=== PATIENT | female | born 1940 | race Caucasian/White ===

== ENCOUNTER → 2017-03-05 | Outpatient (CLI) | payer MEDICARE, SELFPAY | PROVIDERS: Visit Provider Nurse Practitioner Family | DX: D64.9 Anemia, unspecified (principal); E87.1 Hypo-osmolality and hyponatremia | CPT/HCPCS: 36415; 80053; 85025 ==

== ENCOUNTER → 2017-05-31 16:26 | Outpatient (CLI) | payer MEDICARE, SELFPAY ==
[2017-05-31 17:08] LABS: Basophils % 0.5 % (0.1-2.0); Eosinophils # 0.1 K/mm3 (0.0-0.4); Eosinophils % 1.7 % (0.1-12.0); Hematocrit 37.6 % (37.0-47.0); Hemoglobin 12.1 g/dL (12.2-16.2); Lymphocytes # 1.5 K/mm3 (0.7-4.5); Lymphocytes % 27.4 K/mm3 (10-50); Mean Corpuscular HGB Conc 32.3 g/dL (31.8-35.4); Mean Corpuscular Hemoglobin 29.7 pg (27.0-31.2); Mean Corpuscular Volume 92.1 fl (81-99); Mean Platelet Volume 7.1 fl (7.4-10.4); Monocytes # 0.5 K/mm3 (0.1-1.0); Monocytes % 9.7 % (1.7-9.3); Neutrophils # 3.2 K/mm3 (1.8-7.8); Neutrophils % 60.8 % (37.0-80.0); Platelet Count 353 K/mm3 (142-424); Red Blood Count 4.08 M/mm3 (4.20-5.40); White Blood Count 5.3 K/mm3 (4.8-10.8)
[2017-05-31 17:15] LABS: Alanine Aminotransferase 23 U/L (12-78); Albumin Level 3.8 gm/dL (3.4-5.0); Albumin/Globulin Ratio 1.1 (1.1-1.8); Alkaline Phosphatase 63 U/L (46-116); Anion Gap 9.3 mEq/L (5-15); Aspartate Amino Transferase 29 U/L (15-37); Bilirubin,Total 0.3 mg/dL (0.2-1.0); Blood Urea Nitrogen 16 mg/dL (7-18); Carbon Dioxide 29 mmol/L (21.0-32.0); Chloride 94 mmol/L (98-107); Creatinine,Serum 0.62 mg/dL (0.55-1.02); Estimated Glomerular Filt Rate 94 ml/min (>60); Ferritin 22 ng/mL (8-388); GFR (African American) 114 ML/MIN (>60); Globulin 3.4 gm/dl (1.3-3.2); Glucose 91 mg/dL (74-106); Potassium 4.3 mmoL/L (3.5-5.1); Sodium 128 mmol/L (136-145); Thyroid Stimulating Hormone 1.26 uIU/ml (0.358-3.740); Total Protein,Serum 7.2 gm/dL (6.4-8.2)
[2017-06-02 05:20] LABS: Iron 77 ug/dL (27-139); Iron Saturation 23 % (15-55); UIBC 264 ug/dL (118-369)
[2017-06-02 06:15] LABS: Folate >20.0 ng/mL (>3.0); Vitamin B12 1054 pg/mL (232-1245)
== END ==
PROVIDERS: PCP Internal Medicine Adolescent Medicine; Visit Provider Nurse Practitioner Family
DX: D64.9 Anemia, unspecified (principal); E87.1 Hypo-osmolality and hyponatremia
CPT/HCPCS: 36415; 80053; 82607; 82728; 82746; 83550; 84443; 85025

== ENCOUNTER → 2017-08-26 08:48 | Outpatient (CLI) | payer MEDICARE, SELFPAY ==
--- NOTE | 2017-08-26 08:53 | MM_ITS ---
MM Dig screening mamm BI w/CAD CAD Screening ORDERING PHYSICIAN : Nadeen Matias PATIENT AGE: 76 years GENDER: Female COMPARISON: Previous mammograms: June 2014, 2015July 2016 INDICATION: 76-year-old. Estrogen cream. Previous cyst aspiration right breast. Family history. Sister with breast cancer age 85. TECHNIQUE: Standard CC and MLO images were obtained. R2 CAD reviewed. FINDINGS: Mild to moderate residual from bladder elements No new worrisome dominant mass nor suspicious calcifications either breast. RIGHT BREAST: Stable focal Density upper-outer quadrant right breast would note change since studies dating to at least 2015 and 2014. No significant change here at routine follow-up adequate. LEFT BREAST:No interval change. Areas of density on cc view dissipates on the MLO view and are stable since prior studies from 2014 as well IMPRESSION: Stable bilateral mammogram. Follow-up in one year BI-RADS Category: 2 Benign Finding(s) RECOMMENDED FOLLOW-UP: 1YR - 1 YEAR FOLLOW-UP (A letter has been sent to the patient regarding results of the study.)
== END ==
PROVIDERS: Family Provider Internal Medicine Adolescent Medicine; PCP Internal Medicine Adolescent Medicine; Visit Provider Nurse Practitioner Family
DX: Z12.31 Encounter for screening mammogram for malignant neoplasm of breast (principal)
CPT/HCPCS: 77067

== ENCOUNTER 2017-09-07 10:04 | Outpatient (CLI) | payer MEDICARE, SELFPAY ==
[2017-09-07 10:06] VITALS: BMI 27.4
[2017-09-07 10:29] LABS: Creatinine Clearance Estimated 57 mL/min (0-300); Creatinine,Serum 0.68 mg/dL (0.55-1.02); Estimated Glomerular Filt Rate 85 ml/min (>60); GFR (African American) 102 ML/MIN (>60)
[2017-09-07 10:37] LABS: Albumin Level 3.5 gm/dL (3.4-5.0); Calcium 8.7 mg/dL (8.5-10.1)
[2017-09-07 11:09] VITALS: BP 142/77; PULSE 71; RESP 18; TEMP 36.4; O2SAT 96
[2017-09-07 11:20] VITALS: BP 132/74; PULSE 74; RESP 18; TEMP 36.6; O2SAT 97
[2017-09-07 11:40] VITALS: BP 128/74; PULSE 78; RESP 18; TEMP 36.6; O2SAT 97
== END 2017-09-07 11:45 | disposition home or self-care (01) ==
LOC: INF 10:04
PROVIDERS: Family Provider Internal Medicine Adolescent Medicine; PCP Internal Medicine Adolescent Medicine; Visit Provider Internal Medicine Adolescent Medicine
DX: M81.0 Age-related osteoporosis without current pathological fracture (principal)
CPT/HCPCS: 82040; 82310; 82565; 96365; J3489

== ENCOUNTER → 2018-01-24 09:28 | Outpatient (CLI) | payer MEDICARE, SELFPAY ==
[2018-01-24 10:10] LABS: Basophils % 0.7 % (0.1-2.0); Eosinophils # 0.2 K/mm3 (0.0-0.4); Eosinophils % 5.1 % (0.1-12.0); Hematocrit 39.7 % (37.0-47.0); Hemoglobin 12.5 g/dL (12.2-16.2); Lymphocytes # 1.1 K/mm3 (0.7-4.5); Lymphocytes % 26.1 % (10-50); Mean Corpuscular HGB Conc 31.5 g/dL (31.8-35.4); Mean Corpuscular Hemoglobin 30.5 pg (27.0-31.2); Mean Corpuscular Volume 96.7 fl (81-99); Mean Platelet Volume 6.3 fl (7.4-10.4); Monocytes # 0.5 K/mm3 (0.1-1.0); Monocytes % 10.7 % (1.7-9.3); Neutrophils # 2.4 K/mm3 (1.8-7.8); Neutrophils % 57.4 % (37.0-80.0); Platelet Count 383 K/mm3 (142-424); Red Cell Distribution Width 13.2 % (11.5-17.5); White Blood Count 4.2 K/mm3 (4.8-10.8)
[2018-01-24 10:23] LABS: Alanine Aminotransferase 25 U/L (12-78); Albumin Level 3.5 gm/dL (3.4-5.0); Alkaline Phosphatase 52 U/L (46-116); Anion Gap 9.3 mEq/L (5-15); Aspartate Amino Transferase 22 U/L (15-37); Bilirubin,Total 0.3 mg/dL (0.2-1.0); Blood Urea Nitrogen 16 mg/dL (7-18); Calcium 8.9 mg/dL (8.5-10.1); Carbon Dioxide 28 mmol/L (21.0-32.0); Chloride 99 mmol/L (98-107); Chol/HDL Ratio 4.8 (1-3.5); Cholesterol 152 mg/dL (140-200); Creatinine,Serum 0.57 mg/dL (0.55-1.02); Estimated Glomerular Filt Rate 103 ml/min (>60); GFR (African American) 125 ML/MIN (>60); Globulin 3.4 gm/dl (1.3-3.2); Glucose 92 mg/dL (74-106); HDL Cholesterol 32 mg/dL (29-89); LDL Cholesterol 105 mg/dL (0-130); Potassium 4.3 mmoL/L (3.5-5.1); Sodium 132 mmol/L (136-145); Total Protein,Serum 6.9 gm/dL (6.4-8.2); Triglycerides 75 mg/dL (30-200); VLDL Cholesterol 15 mg/dL (0-40)
--- NOTE | 2018-01-24 10:28 | MR_ITS ---
MR lumbar spine wo/w con HISTORY: Pain around tailbone. LT sided LT pain to knee on posterior aspect of leg. X6wks. No trauma. Prior HX back surgery X2YRS ago. . ITS.REASON: LUMBAGO WITH SCIATICA ORDERING PHYSICIAN: Susan English PATIENT AGE: 77 years Comparison: MR 08-29-15 TECHNIQUE: Standard multiplanar multiecho sequences are performed without and with gadolinium enhancement. 3-D MIP and myelographic images are also rendered and reviewed FINDINGS: There is moderate thoracolumbar scoliosis convex left with compensatory lumbar curvature convex right. The thoracic scoliosis measures approximately 27 degrees. Multilevel degenerative disc disease is present as outlined below. Spinal cord ends at the L1 level T10-T11: Degenerative disc disease with endplate hypertrophic change and bulging disc with borderline narrowing of the canal. T11-T12: Degenerative disc disease with bulging disc and mild right paracentral disc protrusion not significant change with moderate to severe right lateral recess and foraminal narrowing. T12-L1: Degenerative disc disease with bulging disc along with facet and ligamentum flavum hypertrophy with moderate to severe right-sided foraminal and mild right lateral recess narrowing L1-L2: Severe degenerative disc disease along with facet and ligamentum flavum hypertrophy. There is severe left-sided facet hypertrophic change with severe left-sided lateral recess and foraminal narrowing. There is 12 mm left lateral translation of L1 on L2. There is moderate to severe right-sided foraminal narrowing. L2-L3: Concentric bulging disc along with facet ligamentum flavum hypertrophy with bilateral lateral recess and foraminal narrowing greater on the left. There are small left paracentral disc protrusion at this level contributing to the lateral recess narrowing on the left. There is severe left-sided foraminal narrowing. L3-L4: Concentric bulging disc eccentric toward the left along with facet and ligamentum flavum hypertrophy with moderate left lateral recess and severe left-sided foraminal narrowing L4-L5: Bulging disc along with facet and ligamentum flavum hypertrophy with moderate bilateral lateral recess and foraminal narrowing with borderline canal stenosis of 11 mm. L5-S1: Severe degenerative disc disease. There is a broad-based central disc osteophyte complex slightly eccentric toward the left with moderate bilateral lateral recess and foraminal narrowing. Borderline canal stenosis is noted at this level Post enhanced images do not demonstrate any abnormal contrast enhancement. No masses are evident. IMPRESSION: Abnormal MRI of the lumbar spine. There is multilevel degenerative disc disease along with facet and ligamentum arthritic/hypertrophic changes and with moderate levoscoliosis of the thoracolumbar spine with varying levels of foraminal and lateral recess narrowing some of which is severe with overall not significant change from the previous study. There are disc protrusions and bulging disc along with a moderate-sized disc osteophyte complex at L5-S1. Please see above for detailed description at each level. There is borderline canal stenosis at L4-5 and L5-S1. Overall, the findings have not significantly changed compared to the previous study
--- NOTE | 2018-01-24 11:30 | HMH.ITSHM ---
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 []ALPRAZOLAM GABAPENTIN LEVOCETIRIZINE DHYDROCHLORIDE NORCO DULOXETINE HYDROCHLORIDE MACRODANTIN MACROCRYSTALS ROPINROLE HYDROCHLORIDE ESTRACE VAGINAL CELEBREX ASPIRIN PROBIOTIC FLUTICASONE ZIAC
[2018-01-25 10:00] LABS: Vitamin D 25 Hydroxy 32.2 ng/mL (30.0-100.0)
[2018-01-26 06:20] LABS: Vitamin B12 911 pg/mL (232-1245)
== END ==
PROVIDERS: Visit Provider Nurse Practitioner Family
DX: I10 Essential (primary) hypertension (principal); M54.41 Lumbago with sciatica, right side; M81.0 Age-related osteoporosis without current pathological fracture; M99.83 Other biomechanical lesions of lumbar region; Z86.39 Personal history of other endocrine, nutritional and metabolic disease
CPT/HCPCS: 36415; 72158; 76376; 80053; 80061; 82607; 82652; 85025

== ENCOUNTER → 2018-02-04 06:52 | Outpatient (CLI) | payer MEDICARE, SELFPAY ==
--- NOTE | 2018-02-04 06:57 | NM_ITS ---
History and Indications: Hypertension, family history, chest pain and fatigue Procedure: Patient received a 0.4 mg of intravenous Lexiscan, resting heart rate was 67 bpm, resting blood pressure 128/77, with Lexiscan maximum heart rate achieved was 95 bpm which is less than 85% of the maximum predicted heart rate and a blood pressure was 72/39. With Lexiscan no symptoms recorded Electrocardiogram: Resting electrocardiogram showed sinus rhythm, with Lexiscan there is less than 1.[address] segment depression noted from the baseline EKG. The EKG portion of the Lexiscan Myoview is nondiagnostic. Cardiac stress and resting SPECT images: Cardiac stress and rest SPECT images were obtained using technetium 99 Myoview 31.8 mCi stress and 10.8 mCi at rest gated SPECT further analysis of segmental wall motion and calculation of the ejection fraction also done. Cardiac stress and the suspect images show decreased tracer activity in the anterior wall and apex which improves on the resting images suggestive of reversible ischemia, computer derived ejection fraction is over 65% with no regional wall motion abnormality, right ventricle is normal size and contractility. Conclusion: 1. The EKG portion of the Lexiscan Myoview is nondiagnostic. 2. Scintigraphic evidence of mild reversible ischemia involving the anterior and apical wall. Computer derived ejection fraction is over 65% no regional wall motion abnormality, right ventricle is normal size and contractility. 3. Abnormal Lexiscan Myoview study.
== END ==
PROVIDERS: PCP Internal Medicine Adolescent Medicine; Visit Provider Nurse Practitioner Family
DX: R07.89 Other chest pain (principal); I10 Essential (primary) hypertension
CPT/HCPCS: 78452; 93017; A9502; J2785

== ENCOUNTER → 2018-02-21 10:20 | Outpatient (POV) | payer MEDICARE, SELFPAY ==
[2018-02-21 10:40] VITALS: BP 124/74; PULSE 83; RESP 18; O2SAT 98
--- NOTE | 2018-02-21 12:21 | HMH.PMCON ---
Assessment and Plan (1) Degenerative disc disease Current visit: Yes Status: Chronic Qualifiers: Spinal region: lumbar Qualified Code(s): M51.36 - Other intervertebral disc degeneration, lumbar region Category: Medical (2) Sacroiliitis Current visit: Yes Status: Chronic Category: Medical Code(s): M46.1 - Sacroiliitis, not elsewhere classified - Assessment and plan all Dx Assessment and Plan for all problems:: We will schedule left SI joint injection for the patient. I believe this would be beneficial given her symptomology. Patient is continuing a home stretching regimen patient is also on anti-inflammatories. I will follow-up with her after her injection. This note was dictated using voice recognition software and may contain errors or omissions HPI - Data of Consult Consult date: 02/21/18 Requesting Physician: Ida Jamil APRN Primary Care Provider: Samuel Braun MD - Consult Narrative Reason for consult: Back pain History of present illness: Ms. Pizano is a 77 year old female who presented today for consultation in regards to her low back pain. Patient states bending over increases pain while rest, heat, medication decrease pain. She has left leg pain that goes into her calf. Patient has had surgery by Dr. Kellogg in the past. Patient has had minimal relief with physical therapy and massage therapy. She has tried Lortab/Soma/Tylenol. She rates her pain a 5 out of 10 today. Most of her pain is in her left side. CC: Ida Jamil APRN [facility] History I have reviewed the patient's past medical history: Yes Medical History: Reports:: Hypertension Denies:: Diabetes Mellitus Type 2, Internal Pacemaker, Seizures Other Medical History: Reports: Arthritis Other Surgeries: Yes: Appendectomy, Cardiac Catheterization, Cholecystectomy, Coronary Stent, Hysterectomy-Total. No: Pacemaker Amputation: No Fractures: No - *Social History Smoking Status: Never smoker Alcohol Intake: never Substance Use Type: denies use Occupational Status: retired Housing: house - Psychiatric History Expresses thoughts of harming self/others: None Suicide Plan Description: No Plan *Family Hx:: Coronary Artery Disease, Heart Attack Review of Systems - Review of Systems ROS General: no recent weight change, no fever, no sleep disturbances Respiratory: no cough, no shortness of air, no recurring pulmonary infections Cardiovascular/Peripheral Vascular: No chest pain, No palpitations, no edema, no shortness of breath. Gastrointestinal: no incontinence, normal bowel movements reported Genitourinary: no incontinence Musculoskeletal: Back pain, left SI joint pain Psychiatric: normal mood/ affect Neurological: [denies weakness in extremities], [denies balance issues] Meds Home Medications Medication Instructions Recorded Confirmed Type Celecoxib [Celebrex] 200 mg PO DAILY 09/07/17 02/16/18 History Duloxetine HCl [Cymbalta 30mg 1 tab PO DAILY 09/07/17 02/16/18 History capsule] Gabapentin [Gabapentin 300mg Cap] 300 mg PO BID 09/07/17 02/16/18 History Hydrocod/Acet 5/325 mg [[place] 1 tab PO Q4HP PRN 09/07/17 02/16/18 History 5/325mg tablet] Ropinirole HCl [Requip 0.25mg 0.25 mg PO HS 09/07/17 02/16/18 History Tablet] alprazolam 0.5 mg tablet 0.25 mg PO HS tab 02/08/18 02/16/18 History ascorbate calcium 500 mg tablet 500 mg PO BID 02/08/18 02/16/18 History aspirin 81 mg tablet,delayed 81 mg PO DAILY 02/08/18 02/16/18 History release bisoprolol 2.5 2 tab PO DAILY tab 02/08/18 02/16/18 History mg-hydrochlorothiazide 6.25 mg tablet atorvastatin 40 mg tablet 40 mg PO DAILY 02/16/18 02/16/18 History Allergies Allergy/AdvReac Type Severity Reaction Status Date / Time No Known Allergies Allergy Verified 02/16/18 10:22 Objective Vital signs: Pulse Resp BP Pulse Ox 83 18 124/74 98 02/21/18 10:40 02/21/18 10:40 02/21/18 10:40
--- NOTE | 2018-02-21 12:25 | P.CONS_ITS ---
Assessment and Plan (1) Degenerative disc disease Current visit: Yes Status: Chronic Qualifiers: Spinal region: lumbar Qualified Code(s): M51.36 - Other intervertebral disc degeneration, lumbar region Category: Medical (2) Sacroiliitis Current visit: Yes Status: Chronic Category: Medical Code(s): M46.1 - Sacroiliitis, not elsewhere classified - Assessment and plan all Dx Assessment and Plan for all problems:: We will schedule left SI joint injection for the patient. I believe this would be beneficial given her symptomology. Patient is continuing a home stretching regimen patient is also on anti-inflammatories. I will follow-up with her after her injection. This note was dictated using voice recognition software and may contain errors or omissions HPI - Data of Consult Consult date: 02/21/18 Requesting Physician: Ida Jamil APRN Primary Care Provider: Samuel Braun MD - Consult Narrative Reason for consult: Back pain History of present illness: Ms. Pizano is a 77 year old female who presented today for consultation in regards to her low back pain. Patient states bending over increases pain while rest, heat, medication decrease pain. She has left leg pain that goes into her calf. Patient has had surgery by Dr. Kellogg in the past. Patient has had minimal relief with physical therapy and massage therapy. She has tried Lortab/Soma/Tylenol. She rates her pain a 5 out of 10 today. Most of her pain is in her left side. CC: Ida Jamil APRN [facility] History I have reviewed the patient's past medical history: Yes Medical History: Reports:: Hypertension Denies:: Diabetes Mellitus Type 2, Internal Pacemaker, Seizures Other Medical History: Reports: Arthritis Other Surgeries: Yes: Appendectomy, Cardiac Catheterization, Cholecystectomy, Coronary Stent, Hysterectomy-Total. No: Pacemaker Amputation: No Fractures: No - *Social History Smoking Status: Never smoker Alcohol Intake: never Substance Use Type: denies use Occupational Status: retired Housing: house - Psychiatric History Expresses thoughts of harming self/others: None Suicide Plan Description: No Plan *Family Hx:: Coronary Artery Disease, Heart Attack Review of Systems - Review of Systems ROS General: no recent weight change, no fever, no sleep disturbances Respiratory: no cough, no shortness of air, no recurring pulmonary infections Cardiovascular/Peripheral Vascular: No chest pain, No palpitations, no edema, no shortness of breath. Gastrointestinal: no incontinence, normal bowel movements reported Genitourinary: no incontinence Musculoskeletal: Back pain, left SI joint pain Psychiatric: normal mood/ affect Neurological: [denies weakness in extremities], [denies balance issues] Meds Home Medications Medication Instructions Recorded Confirmed Type Celecoxib [Celebrex] 200 mg PO DAILY 09/07/17 02/16/18 History Duloxetine HCl [Cymbalta 30mg 1 tab PO DAILY 09/07/17 02/16/18 History capsule] Gabapentin [Gabapentin 300mg Cap] 300 mg PO BID 09/07/17 02/16/18 History Hydrocod/Acet 5/325 mg [[place] 1 tab PO Q4HP PRN 09/07/17 02/16/18 History 5/325mg tablet] Ropinirole HCl [Requip 0.25mg 0.25 mg PO HS 09/07/17 02/16/18 History Tablet] alprazolam 0.5 mg tablet 0.25 mg PO HS tab 02/08/18 02/16/18 History ascorbate calcium 500 mg tablet 500 mg PO BID 02/08/18 02/16/18 Hist
== END ==
PROVIDERS: PCP Internal Medicine Adolescent Medicine; Visit Provider Clinical Nurse Specialist Family Health
DX: M51.36 Other intervertebral disc degeneration, lumbar region (principal); M46.1 Sacroiliitis, not elsewhere classified
CPT/HCPCS: 99202

== ENCOUNTER 2018-03-14 09:37 | Outpatient (RCR) | payer MEDICARE, SELFPAY | END 2018-06-01 08:38 | disposition home or self-care (01) | LOC: PT 09:37 | PROVIDERS: Visit Provider Urology | DX: I25.10 Atherosclerotic heart disease of native coronary artery without angina pectoris (principal); Z95.5 Presence of coronary angioplasty implant and graft | CPT/HCPCS: 93798 ==

== ENCOUNTER → 2018-03-18 10:50 | Outpatient (CLI) | payer MEDICARE, SELFPAY ==
--- NOTE | 2018-03-18 10:54 | CA_ITS ---
PROCEDURE: 2-D M-mode and color Doppler study INDICATIONS FOR THE TEST: Chest pain COPD Heart Murmur Tobacco Smoking Palpitations Fatigue Syncope Edema Hypertension+Diabetes Mellitus Rheumatic Fever SOB [place] Obesity Hyperlipidemia+ Family History HD Additional History CAD, STENTS PATIENT INFORMATION HEIGHT:64 WEIGHT:166 GENDER: Female B/P:125/52 2-D/M-MODE INTERPRETATION: 2-D MEASUREMENTS OBSERVED VALUES IN CMS Right Ventricular Dimension (RVDd) 1.6 Interventricular Septum (Thickness)(IVsd) 1.5 Left Ventricular Internal Dimensions(LVIDd) 4.6 Left Ventricular Posterior Wall (Thickness)(LVPWd) 0.9 Aortic Root 3.2 Aortic Cusp Separation 1.9 Left Atrial Dimensions (LAD) 3.5 2D 1. Left atrium is mildly enlarged, left ventricle is normal size, mild concentric left ventricular hypertrophy, visually estimated ejection fraction 55% with no regional wall motion abnormality. 2. The right atrium and right ventricle are normal size and contractility. 3. The aortic valve is thickened and calcified, leaflet continue to display mobility. 4. The mitral and tricuspid valve leaflets are minimally thickened 5. The pulmonic valve is poorly visualized. 6. No significant pericardial effusion noted. DOPPLER INTERROGATION: Doppler interrogation of the aortic, mitral and tricuspid valvular presence of aortic insufficiency which is difficult to quantify, a transesophageal echocardiogram is recommended for further evaluation. Moderate mitral and tricuspid regurgitation, calculated right ventricular systolic pressure 46 mmHg consistent with moderate pulmonary hypertension, grade 1 diastolic dysfunction seen with tissue Doppler evidence of raised left atrial pressure. CONCLUSION: 1. Mildly enlarged left atrium, normal left ventricular size, mild concentric left ventricular hypertrophy, visually estimated ejection fraction 55% with no regional wall motion abnormality, grade 1 diastolic dysfunction seen with tissue Doppler evidence of raised left atrial pressure. 2. Thickened and calcified aortic valve without aortic stenosis, there is aortic insufficiency present which is difficult to quantify, a transesophageal echocardiogram is recommended for further evaluation. 3. Moderate mitral and mild tricuspid regurgitation, calculated right ventricular systolic pressure is 46 mmHg consistent with moderate pulmonary hypertension. 4. No significant pericardial effusion noted.
--- NOTE | 2018-03-18 13:38 | NM_ITS ---
History and Indications: Coronary artery disease, hypertension, hyperlipidemia, family history, shortness of breath and fatigue Procedure: A she received a 0.4 mg of intravenous Lexiscan, resting heart rate was 63 bpm resting blood pressure 150/72, with Lexiscan maximum heart rate achieved was 93 bpm which is less than 85% of the maximum predicted heart rate and a blood pressure was 123/58. With Lexiscan patient complained of shortness of breath. Electrocardiogram: Resting echocardiogram showed sinus rhythm nonspecific ST-T changes, with Lexiscan there is less than 1.[address] segment depression noted from the baseline EKG. The EKG portion of the Lexiscan Myoview is nondiagnostic. Cardiac stress and resting SPECT images: Stress and resting SPECT images were obtained using technetium 99 Myoview 31.2 mCi stress and 11.4 mCi at rest, gated SPECT further analysis of segmental wall motion and calculation of the ejection fraction also done. Cardiac stress and resting SPECT images show a mild fixed defect in the wall with normal contractility on the gated SPECT is likely secondary to soft tissue attenuation, no reversible ischemia seen. Computer derived ejection fraction is over 65% with no regional wall motion abnormality, right ventricle is normal size and contractility. Conclusion: 1. The EKG portion of the Lexiscan Myoview is nondiagnostic. 2. No scintigraphic evidence of reversible ischemia seen, computer derived ejection fraction is over 65% with no regional wall motion abnormality, right ventricle is normal size and contractility. 3. Normal Lexiscan Myoview study.
== END ==
PROVIDERS: PCP Internal Medicine Adolescent Medicine; Visit Provider Internal Medicine
DX: I25.10 Atherosclerotic heart disease of native coronary artery without angina pectoris (principal); E78.5 Hyperlipidemia, unspecified; I11.9 Hypertensive heart disease without heart failure
CPT/HCPCS: 78452; 93017; 93306; A9502; J2785

== ENCOUNTER → 2018-04-26 11:04 | Outpatient (POV) | payer MEDICARE, SELFPAY ==
[2018-04-26 11:15] VITALS: BP 123/56; PULSE 74; RESP 18; O2SAT 98; BMI 28.5
--- NOTE | 2018-04-26 11:33 | P.CONS_ITS ---
[facility] Pain Management SOAP Note Subjective:: Is a pleasant 77-year-old white female who presents today for follow-up after bilateral SI joint injections. Patient did not get much relief from this. Patient still having quite a bit of pain in her low back and down her left leg. Patient is interested in pursuing more injective therapy. Patient is currently on anti-inflammatories. Patient is also on Plavix from Dr. Kirkpatrick. She rates her pain today a 6 out of 10. Patient is continuing a home stretching regimen. ROS General: no recent weight change, no fever, no sleep disturbances Respiratory: no cough, no shortness of air, no recurring pulmonary infections Cardiovascular/Peripheral Vascular: No chest pain, No palpitations, no edema, no shortness of breath. Gastrointestinal: no incontinence, normal bowel movements reported Genitourinary: no incontinence Musculoskeletal: Back pain, leg pain Psychiatric: normal mood/ affect, Neurological: [denies weakness in extremities], [denies balance issues] Objective:: Physical Exam General: Alert and oriented x3, no acute distress, pleasant and cooperative, [on room air] Lungs: Resps E/U, Symmetrical chest expansion, Eyes: PERRL Musculoskeletal: Flexion and extension of lumbar spine somewhat guarded secondary to pain, deep tendon reflexes normal, strength in upper and lower extremities [5/5], [abnormal gait noted] Neurological: speech clear, wrap turner equal, no gross sensory deficits Assessment:: Degenerative disc disease lumbar spine with lumbar radiculopathy, facet arthropathy, osteophyte, sacroiliitis Plan:: We will schedule an L4-L5 lumbar epidural steroid injection for the patient I believe it would be beneficial given her pathology and symptomology. I will follow-up with her 2 weeks after her injection and reassess her symptoms at that time. 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 Dr. Pinedo has reviewed this note and agrees with this plan of care. This note was dictated using voice recognition software and may contain errors or omissions
== END ==
PROVIDERS: PCP Internal Medicine Adolescent Medicine; Visit Provider Clinical Nurse Specialist Family Health
DX: M51.16 Intervertebral disc disorders with radiculopathy, lumbar region (principal); M46.1 Sacroiliitis, not elsewhere classified; M12.88 Other specific arthropathies, not elsewhere classified, other specified site; M25.70 Osteophyte, unspecified joint
CPT/HCPCS: 99213

== ENCOUNTER → 2018-05-06 11:20 | Outpatient (CLI) | payer MEDICARE, SELFPAY ==
--- NOTE | 2018-05-06 11:29 | XR_ITS ---
XR hip LT 2-3V w/pelvis HISTORY: Left hip pain ITS.REASON: LEFT HIP PAIN,BURSITIS ORDERING PHYSICIAN: Susan English PATIENT AGE: 77 years COMPARISON: FINDINGS: AP view the pelvis shows [id number] osteoarthritic changes of both hips. No fracture or dislocation. No lytic or blastic change. There is an asymmetric rounded area of increased density in the left pelvic region of unknown etiology or significance. This measures 2 cm. Possibly due to hyperdense feces. There are degenerative changes of the lumbar spine with facet arthritic changes and lumbar scoliosis convex right. IMPRESSION: [id number] osteoarthritic changes of the hips
== END ==
PROVIDERS: PCP Internal Medicine Adolescent Medicine; Visit Provider Nurse Practitioner Family
DX: M25.552 Pain in left hip (principal); M70.62 Trochanteric bursitis, left hip
CPT/HCPCS: 73502

== ENCOUNTER → 2018-06-27 13:31 | Outpatient (CLI) | payer MEDICARE, SELFPAY ==
--- NOTE | 2018-06-27 13:40 | XR_ITS ---
XR DEXA axial skeleton COMPARISON: Previous DEXA scans for 2016, 03/17/2013, and 02/27/2010 HISTORY: The patient is postmenopausal TECHNIQUE: DEXA scanning lumbar spine and bilateral hips FINDINGS: Lumbar spine: The areas BMD L1-L4 is 1.613 g/sq cm with a T score of 3.6. This is a 5.6% interval improvement in BMD from the most recent exam 06/24/2016 Right hip: A total BMD is 1.014 g/sq cm with T score of 0.1 in the right femoral neck is 0.968 g/sq cm with a T score of -0.5. Left hip: The total BMD left hip is 0.943 g centimeters square with T score -0.5 in the left femoral neck is 0.877 g/sq cm with a T score of -1.2. The total mean BMD is 0.978 g centimeters square which is a 0.4% interval improvement in BMD from most recent exam. Impression: Normal study lumbar spine with prominent interval improvement from previous DEXA scan normal study right hip, mild osteopenia left hip, consider follow-up study in 2 years
== END ==
PROVIDERS: PCP Internal Medicine Adolescent Medicine; Visit Provider Nurse Practitioner Family
DX: M81.0 Age-related osteoporosis without current pathological fracture (principal); Z13.820 Encounter for screening for osteoporosis
CPT/HCPCS: 77080

== ENCOUNTER 2018-06-27 14:30 | Outpatient (RCR) | payer MEDICARE, SELFPAY ==
--- NOTE | 2018-06-14 11:08 | HMH.PTOPEV ---
PT Outpatient Evaluation Rehab PT Outpatient Evaluation Start: 06/14/18 10:24 Freq: Status: Active Protocol: Document 06/14/18 10:24 RAHEEM (Rec: 06/14/18 11:07 RAHEEM [id number]) Electronically Signed By Josse Child, PT 06/14/18 10:24 Outpatient Therapy Subjective History Subjective History Pt reports insidious onset L lateral hip pain beginning in . Pt reports recent injection has revealed pain severity, however, pt reports intermittent L LE radicular s/ s into posterior hip area d/t chronic issues in lumbar spine . Pt reports this episode of LBP and L LE s/s began ~1-2 months ago. Pt reports recent Xrays of L hip have revealed severe OA, with ASHOK on the horizon. PMH: lumbar spine cyst excision Chief Complaint Pain Stiff Swelling Paresthesia Weakness Symptom Type Ache Sharp Dull Numbness Tingling Symptoms Relieved By Rest/Positioning Heat Prescription Meds Symptoms Aggravated By Standing Bending/Stooping Physical Activity Twisting Walking Lifting Prior Functional Limitations Lifting Housework Standing Sitting Walking Current Functional Limitations Lifting Housework Sitting Squatting Walking Stairs Symptom Description Constant but Variable Level of pain today (0-10) 5 Pain scale - at its best (0-10) 4 Pain scale - at its worst (0-10) 8 Lumbopelvic Eval Posture Thoracic Spine Posture Standing Position Flexible Scoliosis on (L) Lumbar Spine Posture Standing Position Flattened Gait Observation General Gait Pattern Observation Antalgic Gait Wide Based Gait
== END 2018-06-27 14:35 | disposition home or self-care (01) ==
LOC: PT 14:30
PROVIDERS: Visit Provider Orthopaedic Surgery
DX: M70.72 Other bursitis of hip, left hip (principal)
CPT/HCPCS: 97010; 97014; 97110; 97163; G0283

== ENCOUNTER → 2018-06-29 08:48 | Outpatient (CLI) | payer MEDICARE, SELFPAY ==
--- NOTE | 2018-06-30 18:03 | P.PCN_ITS ---
[facility] Procedure Note Procedure Note:: Date of Procedure: 06/29/2018 Pre-procedure diagnosis: L hip DJD Post-procedure diagnosis: L hip DJD Procedure: intraarticular corticosteroid injection L hip Performed by: Becky Han MD Safety Officer/s: none Anesthesia: local; 5cc 1% lidocaine w/o epinephrine Estimated Blood Loss: none History of Present Illness: 77yo F with DJD L hip, greater trochanteric bursitis, and lumbar DDD with radiculopathy. Steroid injection was administered for greater trochanteric bursitis, and the patient was sent to physical therapy; these did help her pain but she still experienced groin pain that she wanted to try an intra-articular injection for. After discussing the risks of the procedure, the patient provided informed consent. I explained that she should still continue physical therapy, and to monitor how much relief she obtains from this injection, to determine if the primary issue is from her hip, her bursitis or her back. Procedure Note: The patient presented to the radiology department and changed into a gown, exposing the L hip. Consent was reviewed and signed by both myself and the patie nt, all questions were answered. The patient was placed supine on the fluoroscopy table and the L hip exposed. The anterior groin/hip and proximal thigh were prepped with chlorhexidine. Timeout was performed. Next, the fluoro machine was brought in over the patient?s hip and a picture taken to confirm adequate visualization of the joint. I donned a pair of sterile surgical gloves; the remainder of the procedure was performed in a sterile fashion. A 20G spinal needle was held over the hip to approximate my desired entry point on the skin. Once this was established, a 25G needle was used to infiltrate injection site and estimated needle track with 5cc 1% lidocaine w/o epinephrine. Once the injection site was anesthetized, the spinal needle was advanced through the same puncture site and deeper towards the hip joint. Using fluoro, it was confirmed that the needle was advanced until it was at the level of the femoral neck. The stylus was removed from the spinal needle and 2cc of iodinated contrast solution was injected through the spinal needle. Fluoro was taken again, and the dye confirmed intra-capsular placement of the spinal needle, indicating a successful intraarticular injection. The syringe with contrast was removed, keeping the spinal needle in place, and 40mg Kenalog with 2cc 1% lidocaine w/o epinephrine was injected through the needle into the hip joint. A final fluoro picture was taken, confirming successful intraarticular injection. The spinal needle was removed from the hip and a band-aid was placed over the injection site. Specimens: none Condition/Disposition: good / home Complications: none
== END ==
PROVIDERS: PCP Internal Medicine Adolescent Medicine; Visit Provider Orthopaedic Surgery
DX: M16.12 Unilateral primary osteoarthritis, left hip (principal); M25.552 Pain in left hip; Z88.2 Allergy status to sulfonamides; Z88.8 Allergy status to other drugs, medicaments and biological substances; M70.62 Trochanteric bursitis, left hip
CPT/HCPCS: 20610; 73525

== ENCOUNTER → 2018-10-11 16:04 | Outpatient (CLI) | payer MEDICARE, SELFPAY | PROVIDERS: Visit Provider Urology | DX: N30.20 Other chronic cystitis without hematuria (principal) | CPT/HCPCS: 87086 ==

== ENCOUNTER → 2018-10-21 10:13 | Outpatient (CLI) | payer MEDICARE, SELFPAY ==
--- NOTE | 2018-10-21 10:22 | CT_ITS ---
PROCEDURE: CT ABDOMEN PELVIS WO CON CLINICAL HISTORY: recurrent uti Recurring UTIs, pain COMPARISON: ABDPELW/WO CT ABD PELVIS W/WO CONTRAST from 04/21/2016 TECHNIQUE: Axial images obtained with sagittal and coronal reformats. All CT scans at the facility use one or more dose reduction, viz: automated exposure control, ma/kV adjustment per patient size (including targeted exams where dose is matched to indication, i.e. head), or iterative reconstruction technique. FINDINGS: Coronary artery stents present. Post cholecystectomy. The liver, spleen, adrenal glands, pancreas, and kidneys have an unremarkable appearance. No intestinal obstruction or free air. There is a mild amount of retained colonic feces throughout the colon with scattered diverticula but no evidence of diverticulitis. Post hysterectomy changes. No pelvic mass abnormal fluid collection or focal inflammatory change. No renal or ureteral calculi. No urinary bladder calculi. There are severe degenerative changes of the lumbar spine with levoscoliosis. IMPRESSION: No change with no acute finding. No renal or ureteral calculi or hydronephrosis. Colonic diverticulosis without diverticulitis Dictated by: Richard Busby MD 10/21/2018 17:01 Signed by: <Electronically signed by Richard Busby MD in [place]> 10/21/2018 17:01
--- NOTE | 2018-10-21 10:48 | CA_ITS ---
APPROVED REPORT Gas Charger: MEET Laterality: Bilateral Study Quality: Good Indications: carotid bruit Risk Factors Hypertension: Doppler Spectral Velocity Analysis ECA (R) 37.90/4.28 cm/s ECA (L) 46.40/5.28 cm/s dICA (R) 65.60/17.00 cm/s dICA (L) 58.70/18.50 cm/s Nicol (R) 63.90/17.00 cm/s Nicol (L) 63.00/19.30 cm/s pICA (R) 69.10/19.60 cm/s pICA (L) 86.70/23.70 cm/s dCCA (R) 69.90/20.40 cm/s dCCA (L) 53.40/16.30 cm/s pCCA (R) 85.60/18.10 cm/s pCCA (L) 63.60/12.80 cm/s Vert (R) 22.60/8.56 cm/s Vert (L) 66.30/14.10 cm/s ICA/CCA 0.99 ICA/CCA 1.10 Findings Duplex evaluation demonstrates stenosis of the right proximal internal carotid artery <20% with PSV <140 cm/sec, EDV <100 cm/sec, and IC/CC Ratio <4.0.Duplex evaluation demonstrates stenosis of the left proximal internal carotid artery <20% with PSV <140 cm/sec, EDV <100 cm/sec, and IC/CC Ratio <4.0. Antegrade flow seen bilateral vertebral arteries. Conclusion Duplex evaluation demonstrates stenosis of the right proximal internal carotid artery <20% with PSV <140 cm/sec, EDV <100 cm/sec, and IC/CC Ratio <4.0.Duplex evaluation demonstrates stenosis of the left proximal internal carotid artery <20% with PSV <140 cm/sec, EDV <100 cm/sec, and IC/CC Ratio <4.0. Antegrade flow seen bilateral vertebral arteries. Electronically signed by : Richard Busby MD 10/21/2018 11:43:35
[2018-10-21 13:26] LABS: Alanine Aminotransferase 19 U/L (12-78); Albumin Level 3.7 gm/dL (3.4-5.0); Alkaline Phosphatase 57 U/L (46-116); Aspartate Amino Transferase 21 U/L (15-37); Bilirubin,Direct 0.1 mg/dL (0.0-0.2); Bilirubin,Indirect 0.3 mg/dL (0.0-0.9); Bilirubin,Total 0.4 mg/dL (0.2-1.0); Chol/HDL Ratio 4.8 (1-3.5); Cholesterol 96 mg/dL (140-200); HDL Cholesterol 20 mg/dL (29-89); LDL Cholesterol 50 mg/dL (0-130); Total Protein,Serum 6.6 gm/dL (6.4-8.2); Triglycerides 129 mg/dL (30-200); VLDL Cholesterol 26 mg/dL (0-40)
== END ==
PROVIDERS: Nurse Practitioner Family; PCP Internal Medicine Adolescent Medicine; Visit Provider Urology
DX: E78.5 Hyperlipidemia, unspecified (principal); I51.9 Heart disease, unspecified; N39.0 Urinary tract infection, site not specified; R09.89 Other specified symptoms and signs involving the circulatory and respiratory systems; I65.23 Occlusion and stenosis of bilateral carotid arteries
CPT/HCPCS: 36415; 74176; 80061; 80076; 93880

== ENCOUNTER → 2019-01-12 11:12 | Outpatient (CLI) | payer MEDICARE, SELFPAY ==
[2019-01-12 11:36] LABS: Basophils % 0.4 % (0.1-2.0); Eosinophils # 0.1 K/mm3 (0.0-0.4); Eosinophils % 1.5 % (0.1-12.0); Hematocrit 40.6 % (37.0-47.0); Hemoglobin 13.2 g/dL (12.2-16.2); Lymphocytes # 1.1 K/mm3 (0.7-4.5); Mean Corpuscular HGB Conc 32.5 g/dL (31.8-35.4); Mean Corpuscular Hemoglobin 31.7 pg (27.0-31.2); Mean Corpuscular Volume 97.4 fl (81-99); Mean Platelet Volume 7.3 fl (7.4-10.4); Monocytes # 0.4 K/mm3 (0.1-1.0); Monocytes % 9.6 % (1.7-9.3); Neutrophils # 2.4 K/mm3 (1.8-7.8); Neutrophils % 61.6 % (37.0-80.0); Platelet Count 388 K/mm3 (142-424); Red Blood Count 4.17 M/mm3 (4.20-5.40); Red Cell Distribution Width 12.9 % (11.5-17.5)
[2019-01-12 13:03] LABS: Alanine Aminotransferase 16 U/L (12-78); Albumin/Globulin Ratio 1.4 (1.1-1.8); Alkaline Phosphatase 61 U/L (46-116); Anion Gap 12.4 mEq/L (5-15); Aspartate Amino Transferase 21 U/L (15-37); Bilirubin,Total 0.3 mg/dL (0.2-1.0); Blood Urea Nitrogen 11 mg/dL (7-18); Calcium 9.4 mg/dL (8.5-10.1); Carbon Dioxide 27 mmol/L (21.0-32.0); Chloride 96 mmol/L (98-107); Chol/HDL Ratio 7.6 (1-3.5); Cholesterol 182 mg/dL (140-200); Creatinine,Serum 0.57 mg/dL (0.55-1.02); Estimated Glomerular Filt Rate 103 ml/min (>60); GFR (African American) 125 ML/MIN (>60); Globulin 2.9 gm/dl (1.3-3.2); Glucose 105 mg/dL (74-106); HDL Cholesterol 24 mg/dL (29-89); LDL Cholesterol 128 mg/dL (0-130); Potassium 4.4 mmoL/L (3.5-5.1); Sodium 131 mmol/L (136-145); Total Protein,Serum 6.9 gm/dL (6.4-8.2); Triglycerides 152 mg/dL (30-200); VLDL Cholesterol 30 mg/dL (0-40)
[2019-01-13 08:31] LABS: Vitamin D 25 Hydroxy 35.4 ng/mL (30.0-100.0)
[2019-01-13 17:19] LABS: Vitamin B12 700 pg/mL (232-1245)
== END ==
PROVIDERS: Visit Provider Nurse Practitioner Family
DX: I25.10 Atherosclerotic heart disease of native coronary artery without angina pectoris (principal); R30.0 Dysuria; E53.8 Deficiency of other specified B group vitamins; M81.0 Age-related osteoporosis without current pathological fracture
CPT/HCPCS: 36415; 80053; 80061; 82607; 82652; 85025; 87086

== ENCOUNTER → 2019-01-16 10:54 | Outpatient (CLI) | payer MEDICARE, SELFPAY ==
--- NOTE | 2019-01-16 10:55 | MM_ITS ---
PROCEDURE: MM DIG SCREENING MAMM BI W/CAD CLINICAL INDICATION: SCREENING There is a history of breast cancer patient's sister diagnosed after menopause. There has been a previous cyst aspiration right breast with benign findings. COMPARISON: [facility]B DIG MAMM-SCREEN NAVYA W/CAD from 06/24/2016 DMDXUAVR DIG MAMM-DX UNI A/VW-RT W/CAD from 07/14/2016 [facility] MM Dig screening mamm BI w/CAD from 08/26/2017 TECHNIQUE: Standard CC and MLO images were obtained. R2 CAD reviewed. FINDINGS: Mild diffuse scattered fibroglandular densities are seen throughout both breasts. There is stable asymmetric densities upper outer quadrant right breast. There is no new or suspicious lesion in either breast and no suspicious microcalcifications. IMPRESSION: Fibrofatty parenchyma with no suspicious lesions seen BI-RAD Category: 2 Benign Finding(s) FOLLOW-UP: 1YR 1 Year Follow-up (A letter has been sent to the patient regarding results of the study.) Dictated by: Dr. Zan Anderson MD 01/18/2019 15:[address] Zan Anderson MD in [place] 01/18/2019 15:16
== END ==
PROVIDERS: PCP Internal Medicine Adolescent Medicine; Visit Provider Nurse Practitioner Family
DX: Z12.31 Encounter for screening mammogram for malignant neoplasm of breast (principal)
CPT/HCPCS: 77067

== ENCOUNTER → 2019-05-25 12:24 | Outpatient (CLI) | payer MEDICARE, SELFPAY ==
[2019-05-25 17:19] LABS: Anion Gap 11.8 mEq/L (5-15); Blood Urea Nitrogen 18 mg/dl (7-17); Calcium 9.7 mg/dl (8.4-10.2); Carbon Dioxide 27 mmol/L (22.0-30.0); Chloride 100 mmol/L (98-107); Estimated Glomerular Filt Rate 97 ml/min (>60); GFR (African American) 118 ML/MIN (>60); Glucose 92 mg/dl (74-100); Potassium 4.8 mmoL/L (3.5-5.1); Sodium 134 mmol/L (136-145)
== END ==
PROVIDERS: Visit Provider Physician Assistant
DX: I11.9 Hypertensive heart disease without heart failure (principal); I25.10 Atherosclerotic heart disease of native coronary artery without angina pectoris; I67.2 Cerebral atherosclerosis
CPT/HCPCS: 36415; 80048

== ENCOUNTER → 2019-08-10 10:13 | Outpatient (CLI) | payer MEDICARE, SELFPAY ==
[2019-08-10 11:09] LABS: Basophils % 0.8 % (0.1-2.0); Eosinophils # 0.1 K/mm3 (0.0-0.4); Hematocrit 36.8 % (37.0-47.0); Lymphocytes # 1.8 K/mm3 (0.7-4.5); Lymphocytes % 41.7 % (10-50); Mean Corpuscular HGB Conc 32.8 g/dL (31.8-35.4); Mean Corpuscular Hemoglobin 31.6 pg (27.0-31.2); Mean Corpuscular Volume 96.4 fl (81-99); Mean Platelet Volume 7.3 fl (7.4-10.4); Monocytes # 0.3 K/mm3 (0.1-1.0); Monocytes % 7.9 % (1.7-9.3); Neutrophils % 46.5 % (37.0-80.0); Platelet Count 320 K/mm3 (142-424); Red Blood Count 3.81 M/mm3 (4.20-5.40); Red Cell Distribution Width 13.1 % (11.5-17.5); White Blood Count 4.2 K/mm3 (4.8-10.8)
[2019-08-10 14:07] LABS: Chloride 99 mmol/L (98-107); Potassium 4.4 mmoL/L (3.5-5.1); Sodium 132 mmol/L (136-145)
[2019-08-10 14:10] LABS: Alanine Aminotransferase 11 U/L (12-78); Albumin Level 4.1 g/dl (3.5-5.0); Albumin/Globulin Ratio 1.8 (1.1-1.8); Alkaline Phosphatase 50 U/L (38-126); Anion Gap 12.4 mEq/L (5-15); Aspartate Amino Transferase 29 U/L (14-36); Bilirubin,Total 0.5 mg/dl (0.2-1.3); Blood Urea Nitrogen 18 mg/dl (7-17); Calcium 9.2 mg/dl (8.4-10.2); Carbon Dioxide 25 mmol/L (22.0-30.0); Chol/HDL Ratio 3.9 (1-3.5); Cholesterol 78 mg/dl (140-200); Estimated Glomerular Filt Rate 81 ml/min (>60); GFR (African American) 98 ML/MIN (>60); Globulin 2.3 g/dL (1.3-3.2); Glucose 99 mg/dl (74-100); HDL Cholesterol 20 mg/dl (40-60); Total Protein,Serum 6.4 g/dl (6.3-8.2); Triglycerides 138 mg/dl (30-150); VLDL Cholesterol 28 mg/dL (0-40)
[2019-08-11 12:06] LABS: Vitamin B12 772 pg/mL (232-1245)
[2019-08-14 19:34] LABS: Ferritin 25.9 ng/ml (11.1-264)
[2019-08-25 17:42] LABS: Iron Saturation 23%
== END ==
PROVIDERS: Visit Provider Nurse Practitioner Family
DX: I25.10 Atherosclerotic heart disease of native coronary artery without angina pectoris (principal); I10 Essential (primary) hypertension; D64.9 Anemia, unspecified; E53.8 Deficiency of other specified B group vitamins; M81.0 Age-related osteoporosis without current pathological fracture
CPT/HCPCS: 36415; 80053; 80061; 82607; 82652; 82728; 82746; 83540; 83550; 85025

== ENCOUNTER → 2020-01-25 10:51 | Outpatient (CLI) | payer MEDICARE, SELFPAY ==
--- NOTE | 2020-01-25 10:56 | MM_ITS ---
PROCEDURE: MM DIG SCREENING MAMM BI W/CAD Digital Breast Tomosynthesis Included CLINICAL INDICATION: SCREENING There is a history of breast cancer patient's sister diagnosed after menopause. There has been a previous cyst aspiration right breast with benign findings. COMPARISON: MG DMDXUAVR DIG MAMM-DX UNI A/VW-RT W/CAD from 07/14/2016 MG [facility] MM Dig screening mamm BI w/CAD from 08/26/2017 MG MM DIG SCREENING MAMM BI W/CAD from 01/16/2019 TECHNIQUE: Standard CC and MLO images and 3D Tomosynthesis was obtained. R2 CAD reviewed. FINDINGS: The breasts are composed primarily of fat with minimal scattered fibroglandular densities in each breast. There is a stable benign-appearing nodular density upper-outer quadrant right breast likely intramammary node or fibroadenoma. There is no suspicious lesion and no suspicious microcalcifications. IMPRESSION: Fibrofatty parenchyma with no suspicious lesions seen BI-RAD Category: 2 Benign Finding(s) FOLLOW-UP: 1YR 1 Year Follow-up (A letter has been sent to the patient regarding results of the study.) Dictated by: Dr. Zan Anderson MD 01/28/2020 15:31 Dr. Zan Anderson MD in [place] 01/28/2020 15:31
== END ==
PROVIDERS: PCP Internal Medicine Adolescent Medicine; Visit Provider Internal Medicine Adolescent Medicine
DX: Z12.31 Encounter for screening mammogram for malignant neoplasm of breast (principal)
CPT/HCPCS: 77063; 77067

== ENCOUNTER → 2020-02-10 11:16 | Outpatient (CLI) | payer MEDICARE, SELFPAY ==
[2020-02-10 18:44] LABS: Adenovirus,PCR Not Detected (NotDetected); Bordetella Pertussis Not Detected (NotDetected); Chlamydophila Pneumoniae, PCR Not Detected (NotDetected); Coronavirus 229E Not Detected (NotDetected); Coronavirus NL63 Not Detected (NotDetected); Coronavirus OC43 Not Detected (NotDetected); Coronovirus HKU1,PCR Not Detected (NotDetected); Human Metapneumovirus Not Detected (NotDetected); Influenza A, PCR Not Detected (NotDetected); Influenza AH1, 2009 Not Detected (NotDetected); Influenza AH1, PCR Not Detected (NotDetected); Influenza AH3,PCR Not Detected (NotDetected); Influenza B, PCR Not Detected (NotDetected); Mycoplasma Pneumoniae, PCR Not Detected (NotDetected); Parainfluenza 1, PCR Not Detected (NotDetected); Parainfluenza 2, PCR Not Detected (NotDetected); Parainfluenza 3, PCR Not Detected (NotDetected); Parainfluenza 4, PCR Not Detected (NotDetected); Respiratory Syncytial Virus Not Detected (NotDetected); Rhinovirus/Enterovirus Not Detected (NotDetected)
[2020-02-11 08:46] LABS: Coronavirus 19, PCR Detected (NotDetected)
== END ==
PROVIDERS: PCP Internal Medicine Adolescent Medicine; Visit Provider Internal Medicine Adolescent Medicine
DX: Z20.828 Contact with and (suspected) exposure to other viral communicable diseases (principal); U07.1 COVID-19
CPT/HCPCS: 87581; 87633; 87798; U0003

== ENCOUNTER → 2020-03-11 10:40 | Outpatient (CLI) | payer MEDICARE, SELFPAY ==
[2020-03-11 10:59] LABS: Basophils % 0.8 % (0.1-2.0); Eosinophils # 0.1 K/mm3 (0.0-0.4); Eosinophils % 2.4 % (0.1-12.0); Hematocrit 40.1 % (37.0-47.0); Hemoglobin 12.9 g/dL (12.2-16.2); Lymphocytes # 1.5 K/mm3 (0.7-4.5); Lymphocytes % 34.2 % (10-50); Mean Corpuscular Hemoglobin 30.8 pg (27.0-31.2); Mean Corpuscular Volume 96.2 fl (81-99); Mean Platelet Volume 7.1 fl (7.4-10.4); Monocytes # 0.4 K/mm3 (0.1-1.0); Monocytes % 9.4 % (1.7-9.3); Neutrophils # 2.4 K/mm3 (1.8-7.8); Neutrophils % 53.2 % (37.0-80.0); Platelet Count 306 K/mm3 (142-424); Red Blood Count 4.17 M/mm3 (4.20-5.40); Red Cell Distribution Width 13.2 % (11.5-17.5); White Blood Count 4.5 K/mm3 (4.8-10.8)
[2020-03-11 11:45] LABS: Alanine Aminotransferase 13 U/L (12-78); Albumin Level 4.2 g/dl (3.5-5.0); Albumin/Globulin Ratio 1.7 (1.1-1.8); Alkaline Phosphatase 63 U/L (38-126); Anion Gap 12.4 mEq/L (5-15); Aspartate Amino Transferase 32 U/L (14-36); Bilirubin,Total 0.5 mg/dl (0.2-1.3); Blood Urea Nitrogen 17 mg/dl (7-17); Calcium 9.5 mg/dl (8.4-10.2); Carbon Dioxide 29 mmol/L (22.0-30.0); Chloride 94 mmol/L (98-107); Chol/HDL Ratio 3.1 (1-3.5); Cholesterol 83 mg/dl (140-200); Estimated Glomerular Filt Rate 97 ml/min (>60); GFR (African American) 117 ML/MIN (>60); Globulin 2.5 g/dL (1.3-3.2); Glucose 101 mg/dl (74-100); HDL Cholesterol 27 mg/dl (40-60); Potassium 4.4 mmoL/L (3.5-5.1); Sodium 131 mmol/L (136-145); Total Protein,Serum 6.7 g/dl (6.3-8.2); Triglycerides 99 mg/dl (30-150); VLDL Cholesterol 20 mg/dL (0-40)
[2020-03-11 11:55] LABS: Direct LDL Cholesterol 42.19 mg/dL (100-129)
[2020-03-11 12:01] LABS: 25-OH Vitamin D, Total 47.7 ng/mL (30-100)
== END ==
PROVIDERS: Visit Provider Nurse Practitioner Family
DX: I25.10 Atherosclerotic heart disease of native coronary artery without angina pectoris (principal); I10 Essential (primary) hypertension; D64.9 Anemia, unspecified; M81.0 Age-related osteoporosis without current pathological fracture
CPT/HCPCS: 36415; 80053; 80061; 82306; 85025

== ENCOUNTER → 2020-03-18 09:37 | Outpatient (CLI) | payer MEDICARE, SELFPAY ==
--- NOTE | 2020-03-18 09:50 | XR_ITS ---
PROCEDURE: XR DEXA AXIAL SKELETON CLINICAL HISTORY: POST MENOPAUSAL COMPARISON: CR DEXAAX XR DEXA axial skeleton from 06/27/2018 FINDINGS: The right hip BMD is 0.892 with a T-score of -0.4. The left hip BMD is 0.807 with a T-score of -1.1. The lumbar spine BMD is 1.277 with a T-score of 2.1. Previously the lowest bone density was in the left femoral neck with a T-score of -1.2. IMPRESSION: This patient is considered osteopenic according to the World Health Organization criteria. Bone density is between 10 and 25 percent below young normal. Fracture risk is moderate. Treatment is advised. Based on these results a follow-up exam is recommended in 2 year. Dictated by: Richard Busby MD 03/19/2020 20:32 Richard Busby MD in [place] 03/19/2020 20:32
== END ==
PROVIDERS: PCP Internal Medicine Adolescent Medicine; Visit Provider Nurse Practitioner Family
DX: Z13.820 Encounter for screening for osteoporosis (principal); Z78.0 Asymptomatic menopausal state
CPT/HCPCS: 77080

== ENCOUNTER → 2020-06-10 11:12 | Outpatient (CLI) | payer MEDICARE, SELFPAY | PROVIDERS: PCP Internal Medicine Adolescent Medicine; Visit Provider Urology | DX: E78.2 Mixed hyperlipidemia (principal); I11.9 Hypertensive heart disease without heart failure; I20.8 Other forms of angina pectoris; I27.20 Pulmonary hypertension, unspecified; I35.1 Nonrheumatic aortic (valve) insufficiency; I67.2 Cerebral atherosclerosis; R06.00 Dyspnea, unspecified; R55 Syncope and collapse | CPT/HCPCS: 93270 ==

== ENCOUNTER → 2020-06-19 11:08 | Outpatient (CLI) | payer MEDICARE, SELFPAY ==
--- NOTE | 2020-06-19 | CA_ITS ---
APPROVED REPORT Exam: Pharmacologic Technologist: Taty Sánchez Ht: 5 ft 3 in Wt: 160 lbs BSA: 1.76 m2 HR: 56 bpm BP: 144/53 mmHg Medical History Medications: Alprazolam,,,,, Gabapentin,,,,, Losartan,,,,, Pantoprazole,,,,, Ropinirole,,,,, CloPIdogrel,,,,, DulOXETINE,,,,, Celecoxib,,,,, Hydrocodone/Acetaminaphen,,,,, BisOPROLOL HCTZ,,,,, RoSUVASatin,,,,, Stress Test Details Test: LEXISCAN HR Resting HR: 60 bpm Max Heart Rate (APMHR): 143.293656 bpm Max HR Achieved: 86 bpm Target HR (85% APMHR): 121.827114 bpm % of APMHR: 60.14 Recovery HR: 68 bpm BP Resting BP: 144.0/53.0 mmHg Max BP: 144.0/53.0 mmHg Recovery BP: 124.0/56.0 mmHg ECG Resting ECG: Sinus bradycardia, first degree AV block Clinical Exercise duration: 04:00 min Highest Stage Achieved: Exercise capacity: 1.0 METs Stress ECG Conclusion Symptoms: Mild shortness of air, nausea, lightheaded, headache. No chest pain. Arrhythmias/Ectopy: Occasional PAC. ST-T Changes: No significant changes. Conclusion: Mild hypotension with Lexiscan stress. Otherwise unremarkable. Myoview images reported separately. Test Summary RECOVERY 07:00 . . 73 . 117/ 52 . . REST 05:40 . . 60 . 144/ 53 . . Stage 1 . . . . . . . Myoview Injected Stage 1 01:00 . . 76 . . . . Stage 2 01:00 . . 77 . 113/ 45 . . Stage 3 01:00 . . 74 . 99/ 42 . . Stage 4 01:00 . . 76 . 93/ 38 . Stop exercise at 04:00 RECOVERY 01:00 . . 72 . 103/ 47 . . RECOVERY 02:00 . . 73 . 108/ 47 . . RECOVERY 03:00 . . 73 . 108/ 47 . . RECOVERY 04:00 . . 72 . 96/ 48 . . RECOVERY 05:00 . . 71 . 111/ 46 . . RECOVERY 06:00 . . 72 . 111/ 46 . . RECOVERY 07:00 . . 73 . 117/ 52 . . RECOVERY 08:00 . . 69 . 117/ 52 . . RECOVERY 09:00 . . 75 . 124/ 56 . . RECOVERY 10:00 . . 78 . 124/ 56 . . RECOVERY 11:00 . . 69 . 136/ 58 . . RECOVERY 11:45 . . 69 . 136/ 58 . . Electronically signed by : Zhang Clark, 06/20/2020 10:16:01
--- NOTE | 2020-06-19 11:08 | NM_ITS ---
APPROVED REPORT Exam: Nuclear Stress Test Indication: CAD, 3 STENTS, HTN, HYPERLIPIDEMIA, FM HX., SOB, FATIGUE Patient Location: Outpatient Stress Tech: Taty Sánchez [place] Tech:Ciara Contreras GERRYDorian RT(R)(N) Ht: 5 ft 4 in Wt: 160 lbs Bra Size: 40C HR: 56 bpm BP: 144/53 mmHg BSA: 1.78 m2 BMI: 27.4 History: CAD, 3 STENTS, HTN, HYPERLIPIDEMIA, FM HX., SOB, FATIGUE Procedure: Patient received a 0.4 mg of intravenous Lexiscan, resting heart rate 56 bpm, resting blood pressure 144/53 mmHg, with Lexiscan maximum heart rate achived was 77 bpm which is Less than 85 % of the maximum predicted heart rate and blood pressure was 113/45 mmHg. With Lexiscan, patient denied any complaint of chest pain. MILD SOB Electrocardiogram Resting electrocardiogram showed sinus rhythm, with Lexiscan there is less than 1.[address] segment depression noted from the baseline EKG. The EKG portion of the Lexiscan is nondiagnostic. Cardiac Stress and Resting SPECT Images: Cardiac Stress and Resting SPECT images were obtained using technetium 99m Myoview 31.4 mCi stress and 9.78 mCi at rest. Gated SPECT for analysis of segmental wall motion and calculation of the ejection fraction also done, prone images were also done. Cardiac stress and resting SPECT images show uniform myocardial activity without segmental perfusion abnormality, computer derived ejection fraction is 62% with no regional wall motion abnormality, right ventricle is normal size and contractility. There appears to be transient ischemic dilatation of the left ventricle, raising the concerns for presence of balanced ischemia. Conclusion: 1. The EKG portion of the Lexiscan is nondiagnostic. 2. No scintigraphic evidence of reversible ischemia seen, computer derived ejection fraction is 62% with no regional wall motion abnormality, right ventricle is normal size and contractility, there is transient ischemic dilatation of the left ventricle seen, raising the concern for presence of balanced ischemia. 3. Abnormal Lexiscan Myoview study. Electronically signed by : Zhang Clark, 06/20/2020 10:18:42
--- NOTE | 2020-06-19 12:33 | CA_ITS ---
APPROVED REPORT EXAM: Comprehensive 2D, Doppler, and color-flow Echocardiogram Post Framer: Lu Yu CRT Ht: 5 ft 3 in Wt: 160lbs BSA: 1.76 BP: 140/64 mmHg Indications: Chest Pain, Shortness of Breath, Syncope, Dyspnea, Hyperlipidemia, Hypertension/HDD 2D Dimensions LVOT 2.04 cm (M/F) 1.5-2.5 LA Volume 29.00 mL LA Volume Index 16.50 mL/m2 (M/F) 16-34 M-Mode Dimensions RVDd 2.81 cm (0.9-2.6) LA Diam 3.59 cm (1.9-4.0) LVDd 4.59 cm (3.5-5.7) Ao Diam 3.41 cm (2.0-3.7) LVDs 2.50 cm (3.5-5.7) IVSd 0.84 cm (0.6-1.1) PWd 0.72 cm (0.6-1.1) EF (Teich) 77.00% FS 45.50% EDV (Teich) 96.80 mL ESV (Teich) 22.30 mL LV Diastology E Decel Time 200.00 (160-240 msec) E/A Ratio 0.87 MED E' 11.50 (< 7 cm/sec) MED A' 10.90 cm/s E'/MED E' Ratio 5.97 (>14) LAT E' 8.40 (<10 cm/sec) LAT A' 12.60 cm/s E/LAT E' Ratio 8.17 (>14) Aortic Valve AI PHT 495.00 ms AO Peak GR. 4.50 mmHg Mitral Valve MV A Velocity 79.00 (40-130 cm/s) E/A Ratio 0.87 MV Decel. Time 200.00 (160-240 ms) Pulmonary Valve PV Peak Velocity 82.00 (50-150 cm/s) Tricuspid Valve TR P. Velocity 274.00 cm/s RAP Estimate 10.00 mmHg RVSP 40.00 mmHg Left Ventricle Left atrium is mildly enlarged, left ventricle is normal size, left ventricle wall thickness is upper limit of the normal, there is preserved left ventricular systolic function, visually estimated ejection fraction 55% with no regional wall motion abnormality, grade 1 diastolic dysfunction seen without tissue Doppler evidence of raise left atrial pressure. Right Ventricle Right atrium and right ventricle are mildly enlarged with normal contractility. Aortic Valve Aortic valve is minimally thickened and fibrosed, there is no aortic stenosis, there is mild aortic insufficiency. Mitral Valve Mitral valve is minimally thickened, there is mild mitral regurgitation. Tricuspid Valve Tricuspid grossly normal, there is mild tricuspid regurgitation, calculated right ventricular systolic pressure is 40 mmHg. Pulmonic Valve Pulmonic valve is poorly visualized. Great Vessels Aortic root is normal size. Pericardium No significant pericardial effusion noted. Conclusion 1. Biatrial enlargement, normal left ventricular size, visually estimated ejection fraction 55% with no regional wall motion abnormality grade 1 diastolic dysfunction seen without tissue Doppler evidence of raise left atrial pressure. 2. Mildly enlarged right ventricle with normal contractility. 3. Mild aortic, mild mitral and tricuspid regurgitation, calculated right ventricular systolic pressure is 40 mmHg. 4. No significant pericardial effusion noted. Electronically signed by : Zhang Clark, 06/20/2020 13:38:38
--- NOTE | 2020-06-19 12:33 | CA_ITS ---
APPROVED REPORT Reservations Agent: CT Laterality: Bilateral Study Quality: Good Indications: atypical angina/near syncope, bruit Risk Factors Hypertension: Doppler Spectral Velocity Analysis ECA (R) 75.40/ cm/s ECA (L) 61.00/ cm/s dICA (R) 78.10/21.80 cm/s dICA (L) 93.10/27.60 cm/s Nicol (R) 70.00/17.20 cm/s Nicol (L) 80.30/19.30 cm/s pICA (R) 70.80/17.20 cm/s pICA (L) 93.10/25.70 cm/s dCCA (R) 82.80/12.80 cm/s dCCA (L) 67.40/14.80 cm/s pCCA (R) 87.30/10.30 cm/s pCCA (L) 78.30/10.90 cm/s Vert (R) 46.90/ cm/s Vert (L) 64.90/ cm/s ICA/CCA 0.90 ICA/CCA 1.40 Findings Duplex evaluation demonstrates stenosis of the right proximal internal carotid artery <20% with PSV <140 cm/sec, EDV <100 cm/sec, and IC/CC Ratio <4.0. Duplex evaluation demonstrates stenosis of the left proximal internal carotid artery in the range of 20-49% with PSV <140 cm/sec, EDV <100 cm/sec, and IC/CC Ratio <4.0. Duplex evaluation demonstrates antegrade flow of the bilateral Vertebral Arteries. Thyroid cysts noted. Conclusion Duplex evaluation demonstrates stenosis of the right proximal internal carotid artery <20% with PSV <140 cm/sec, EDV <100 cm/sec, and IC/CC Ratio <4.0. Duplex evaluation demonstrates stenosis of the left proximal internal carotid artery in the range of 20-49% with PSV <140 cm/sec, EDV <100 cm/sec, and IC/CC Ratio <4.0. Duplex evaluation demonstrates antegrade flow of the bilateral Vertebral Arteries. 1 cm solid nodule right thyroid nodule. Electronically signed by : Richard Busby MD 06/19/2020 17:36:56
[2020-06-19 16:20] LABS: Basophils % 0.4 % (0.1-2.0); Eosinophils # 0.1 K/mm3 (0.0-0.4); Eosinophils % 1.2 % (0.1-12.0); Hematocrit 40.5 % (37.0-47.0); Hemoglobin 12.8 g/dL (12.2-16.2); Lymphocytes # 1.5 K/mm3 (0.7-4.5); Lymphocytes % 22.7 % (10-50); Mean Corpuscular HGB Conc 31.6 g/dL (31.8-35.4); Mean Corpuscular Hemoglobin 30.1 pg (27.0-31.2); Mean Corpuscular Volume 95.5 fl (81-99); Monocytes # 0.5 K/mm3 (0.1-1.0); Monocytes % 6.9 % (1.7-9.3); Neutrophils # 4.6 K/mm3 (1.8-7.8); Neutrophils % 68.8 % (37.0-80.0); Platelet Count 328 K/mm3 (142-424); Red Blood Count 4.24 M/mm3 (4.20-5.40); White Blood Count 6.7 K/mm3 (4.8-10.8)
[2020-06-19 16:46] LABS: Alanine Aminotransferase 14 U/L (12-78); Albumin Level 4.6 g/dl (3.5-5.0); Albumin/Globulin Ratio 1.9 (1.1-1.8); Alkaline Phosphatase 65 U/L (38-126); Anion Gap 11.6 mEq/L (5-15); Aspartate Amino Transferase 39 U/L (14-36); Bilirubin,Total 0.5 mg/dl (0.2-1.3); Blood Urea Nitrogen 15 mg/dl (7-17); Calcium 9.6 mg/dl (8.4-10.2); Carbon Dioxide 29 mmol/L (22.0-30.0); Chloride 93 mmol/L (98-107); Chol/HDL Ratio 3.4 (1-3.5); Cholesterol 94 mg/dl (140-200); Estimated Glomerular Filt Rate 97 ml/min (>60); GFR (African American) 117 ML/MIN (>60); Globulin 2.4 g/dL (1.3-3.2); Glucose 100 mg/dl (74-100); HDL Cholesterol 28 mg/dl (40-60); Potassium 4.6 mmoL/L (3.5-5.1); Sodium 129 mmol/L (136-145); Triglycerides 100 mg/dl (30-150); VLDL Cholesterol 20 mg/dL (0-40)
[2020-06-19 16:57] LABS: Direct LDL Cholesterol 47.41 mg/dL (100-129)
[2020-06-19 17:35] LABS: Vitamin B12 681 pg/mL (239-931)
== END ==
PROVIDERS: PCP Internal Medicine Adolescent Medicine; Visit Provider Urology
DX: R06.00 Dyspnea, unspecified; R55 Syncope and collapse; I20.8 Other forms of angina pectoris; I11.9 Hypertensive heart disease without heart failure; E78.2 Mixed hyperlipidemia; I27.20 Pulmonary hypertension, unspecified; I35.1 Nonrheumatic aortic (valve) insufficiency; I67.2 Cerebral atherosclerosis
CPT/HCPCS: 36415; 78452; 80053; 80061; 82607; 85025; 93017; 93306; 93880; A9502; J2785

== ENCOUNTER → 2020-06-28 13:55 | Outpatient (CLI) | payer MEDICARE, SELFPAY ==
--- NOTE | 2020-06-28 13:57 | US_ITS ---
PROCEDURE: US THYROID CLINICAL INDICATION: THYROID NODULE Thyroid nodule valuation COMPARISON: US THY US THYROID from 01/16/2015 FINDINGS: Right lobe: 4 x 2.3 x 1.9 cm. A mixed nodule is present in the right lobe of the thyroid gland mid aspect at 12 x 9 mm well-circumscribed without calcifications wider than tall. This nodule is not significantly changed. Similar appearing 5 mm and 4 mm nodules present in the lower pole on the right and a similar appearing 6 mm nodules also present the lower pole. Left lobe: The left lobe is 4.4 x 1.4 x 1.9 cm no nodules apparent. Isthmus: Unremarkable Additional findings: IMPRESSION: Right-sided thyroid nodules the largest at 12 mm. The cystic components are somewhat less apparent on today's study compared to the previous exam. Nodule is stable in size TR level 3. Suggest annual follow-up Dictated by: Richard Busby MD 06/28/2020 17:59 Richard Busby MD in [place] 06/28/2020 17:59
== END ==
PROVIDERS: PCP Internal Medicine Adolescent Medicine; Visit Provider Nurse Practitioner Family
DX: E04.1 Nontoxic single thyroid nodule (principal)
CPT/HCPCS: 76536

== ENCOUNTER → 2020-07-08 11:38 | Outpatient (CLI) | payer MEDICARE, SELFPAY ==
[2020-07-08 13:06] LABS: Basophils % 0.6 % (0.1-2.0); Eosinophils # 0.1 K/mm3 (0.0-0.4); Eosinophils % 1.3 % (0.1-12.0); Hematocrit 38.4 % (37.0-47.0); Hemoglobin 12.5 g/dL (12.2-16.2); Lymphocytes # 1.4 K/mm3 (0.7-4.5); Lymphocytes % 27.1 % (10-50); Mean Corpuscular HGB Conc 32.7 g/dL (31.8-35.4); Mean Corpuscular Hemoglobin 30.7 pg (27.0-31.2); Mean Corpuscular Volume 93.9 fl (81-99); Mean Platelet Volume 6.9 fl (7.4-10.4); Monocytes # 0.4 K/mm3 (0.1-1.0); Monocytes % 8.8 % (1.7-9.3); Neutrophils # 3.1 K/mm3 (1.8-7.8); Neutrophils % 62.2 % (37.0-80.0); Platelet Count 341 K/mm3 (142-424); Red Blood Count 4.09 M/mm3 (4.20-5.40); Red Cell Distribution Width 13.2 % (11.5-17.5)
[2020-07-08 20:25] LABS: Anion Gap 12.7 mEq/L (5-15); Blood Urea Nitrogen 14 mg/dl (7-17); Calcium 9.7 mg/dl (8.4-10.2); Carbon Dioxide 25 mmol/L (22.0-30.0); Chloride 95 mmol/L (98-107); Estimated Glomerular Filt Rate 81 ml/min (>60); GFR (African American) 98 ML/MIN (>60); Glucose 89 mg/dl (74-100); Potassium 4.7 mmoL/L (3.5-5.1); Sodium 128 mmol/L (136-145)
== END ==
PROVIDERS: PCP Internal Medicine Adolescent Medicine; Visit Provider Physician Assistant
DX: Z01.812 Encounter for preprocedural laboratory examination (principal); Z20.822 Contact with and (suspected) exposure to COVID-19; I25.10 Atherosclerotic heart disease of native coronary artery without angina pectoris
CPT/HCPCS: 36415; 80048; 85025; U0003

== ENCOUNTER 2020-07-09 08:36 | Day surgery (SDC) | payer MEDICARE, SELFPAY ==
[2020-07-09] VITALS (15 sets, daily range): BP systolic 109–159; BP diastolic 43–83; PULSE 60–83; RESP 12–19; TEMP 36.6–36.9; O2SAT 95–100; BMI 29.0
--- NOTE | 2020-07-09 07:13 | IR_ITS ---
APPROVED REPORT Patient Location: Outpatient Bus Transportation Manager: ELISSA Quiñones RT (R) PROCEDURES Left heart catheterization Left ventriculogram Selective coronary angiogram Drug-eluting stent deployment to the proximal and mid dominant right coronary artery INDICATION Angina pectoris, High risk abnormal Myoview Informed consent was obtained prior to the procedure. COMPLICATIONS None Estimated Blood Loss: less thabn 10 ml TECHNIQUE One percent lidocaine used to anesthetize the right anterior aspect of the wrist. The right radial artery was accessed via the Seldinger technique. A 6 Tunisian sheath was placed in the right radial artery. 2.5 mg of verapamil, 800 mcg of nitroglycerin, 1mg Lidocaine and 5000 U Heparin were given through the arterial sheath. The trap catheter was also used to perform left heart catheterization, left ventriculogram and selective coronary angiogram. At the end of the procedure therapeutic heparin was administered giving a therapeutic ACT. And I Frances right guide catheter was placed in the right coronary artery and a Choice PT extra-support wire was placed distally. Primary stenting could not be performed therefore a 2.5 x 27 mm noncompliant balloon was advanced however this would not advance beyond the severe stenosis in the mid right coronary artery. A telescope guide catheter was then advanced to the stenosis which provided additional support and allow the 2.5 mm balloon to be advanced. A 24 chun the severe stenosis still was not reduced and a dog bone appearance occurred at the area of concern. An additional 3 mm x 12 mm noncompliant balloon was advanced and deployed at 20 chun and eventually that did reduce the severe concentric stenosis. This predilatation then allowed delivery of a 3 mm x 38 mm resolute Enoch stent deployed at 22 chun reducing the critical stenosis to 0%. After achieving excellent angiographic results the apparatus was removed the sheath was removed good hemostasis was achieved using TR banding patient was transferred to the postop holding area stable condition. REJI-3 was present before and after the procedure ANGIOGRAPHIC RESULTS The left main artery Has a distal 10% stenosis The left anterior descending artery Has a stent in the proximal through mid segment which is widely patent with minimal in-stent restenosis. Distally the transition is excellent with mild 20% mid and distal LAD disease. The circumflex artery Is a nondominant yet still large vessel with mild atheromatous plaque nothing greater than 10%. A small ramus intermedius is present with a proximal 30 to 40% concentric stenosis. This is a 1.5 mm vessel The right coronary artery Is a dominant vessel and has 70% concentric calcified stenoses throughout the proximal and mid segment. Balloon angioplasty proved this lesion to be greater than 90% stenosed. The LOCKE ventriculogram reveals Normal 65% The left ventricular end-diastolic pressure 20 mmHg IMPRESSION Patent left coronary artery system as described above Severe to critical disease in a dominant right coronary artery as described above Successful stenting the proximal to mid dominant right coronary artery critical disease reduced to 0% with 1 drug-eluting stent Normal ejection fraction Mildly elevated LVEDP PLAN 1. Dual antiplatelet therapy 2. Continue medical management for coronary disease 3. Risk factor modification 4. LDL less than 55 5. Cardiac rehabilitation 6. Avoidance of tobacco products Electronically signed by : Jorje Kirkpatrick, 07/09/2020 11:41:56
[2020-07-09 11:54] LABS: CATHL Activated Clotting Time 324 SEC (74-125)
--- NOTE | 2020-07-09 14:29 | HMH.PHACLD ---
January Pizano has received discharge medication counseling on the following medications: PATIENT CURRENTLY TAKING BISOPROLOL/HCTZ 2.5/6.25 MG DAILY, LOSARTAN 50 MG DAILY, CLOPIDOGREL 75 MG DAILY, AND CRESTOR 20 MG DAILY. PATIENT INDICATED SHE IS SUPPOSED TO TAKE ASPIRIN 81 MG DAILY BUT SHE INDICATED SHE STOPS OCCASIONALLY DUE TO INCREASED BRUISING. CAUTIONED PATIENT ABOUT STOPPING HER ASPIRIN WITHOUT DISCUSSING WITH MD. ASPRIN 81 MG DAILY SCRIPT WAS CALLED TO PATIENT'S PHARMACY.
== END 2020-07-09 14:35 | disposition home or self-care (01) ==
PROVIDERS: PCP Internal Medicine Adolescent Medicine; Visit Provider Internal Medicine
DX: I25.118 Atherosclerotic heart disease of native coronary artery with other forms of angina pectoris (principal); E78.2 Mixed hyperlipidemia; I10 Essential (primary) hypertension; I27.20 Pulmonary hypertension, unspecified; I34.0 Nonrheumatic mitral (valve) insufficiency; I51.89 Other ill-defined heart diseases; I65.23 Occlusion and stenosis of bilateral carotid arteries; R55 Syncope and collapse; R94.31 Abnormal electrocardiogram [ECG] [EKG]; R94.39 Abnormal result of other cardiovascular function study; Z88.2 Allergy status to sulfonamides; Z88.8 Allergy status to other drugs, medicaments and biological substances; I11.9 Hypertensive heart disease without heart failure
CPT/HCPCS: 85347; 92928; 93458; 99152; 99153; C1725; C1769; C1876; C9600; J1644; Q9967

== ENCOUNTER → 2020-07-19 17:21 | Outpatient (CLI) | payer MEDICARE, SELFPAY ==
[2020-07-19 17:55] LABS: Basophils % 0.4 % (0.1-2.0); Eosinophils # 0.1 K/mm3 (0.0-0.4); Eosinophils % 1.6 % (0.1-12.0); Hematocrit 36.3 % (37.0-47.0); Hemoglobin 12.2 g/dL (12.2-16.2); Lymphocytes # 1.6 K/mm3 (0.7-4.5); Lymphocytes % 27.5 % (10-50); Mean Corpuscular HGB Conc 33.6 g/dL (31.8-35.4); Mean Corpuscular Hemoglobin 31.2 pg (27.0-31.2); Mean Platelet Volume 6.9 fl (7.4-10.4); Monocytes # 0.4 K/mm3 (0.1-1.0); Monocytes % 7.8 % (1.7-9.3); Neutrophils # 3.5 K/mm3 (1.8-7.8); Neutrophils % 62.7 % (37.0-80.0); Platelet Count 340 K/mm3 (142-424); Red Cell Distribution Width 13.4 % (11.5-17.5); White Blood Count 5.6 K/mm3 (4.8-10.8)
[2020-07-19 18:34] LABS: Anion Gap 12.1 mEq/L (5-15); Blood Urea Nitrogen 18 mg/dl (7-17); Calcium 9.4 mg/dl (8.4-10.2); Carbon Dioxide 26 mmol/L (22.0-30.0); Chloride 93 mmol/L (98-107); Estimated Glomerular Filt Rate 70 ml/min (>60); GFR (African American) 84 ML/MIN (>60); Glucose 87 mg/dl (74-100); Potassium 5.1 mmoL/L (3.5-5.1); Sodium 126 mmol/L (136-145)
== END ==
PROVIDERS: Internal Medicine; Visit Provider Physician Assistant
DX: R55 Syncope and collapse; E78.2 Mixed hyperlipidemia; I11.9 Hypertensive heart disease without heart failure; I20.8 Other forms of angina pectoris; I27.20 Pulmonary hypertension, unspecified; I34.0 Nonrheumatic mitral (valve) insufficiency; I65.23 Occlusion and stenosis of bilateral carotid arteries; R94.31 Abnormal electrocardiogram [ECG] [EKG]; R94.39 Abnormal result of other cardiovascular function study
CPT/HCPCS: 36415; 80048; 85025

== ENCOUNTER → 2020-08-12 08:57 | Outpatient (CLI) | payer MEDICARE, SELFPAY ==
[2020-08-12 09:16] LABS: Chloride 99 mmol/L (98-107); Potassium 4.5 mmoL/L (3.5-5.1); Sodium 134 mmol/L (136-145)
[2020-08-12 09:19] LABS: Anion Gap 13.5 mEq/L (5-15); Blood Urea Nitrogen 13 mg/dl (7-17); Calcium 9.5 mg/dl (8.4-10.2); Carbon Dioxide 26 mmol/L (22.0-30.0); Estimated Glomerular Filt Rate 120 ml/min (>60); GFR (African American) 145 ML/MIN (>60); Glucose 94 mg/dl (74-100)
== END ==
PROVIDERS: Visit Provider Urology
DX: E87.1 Hypo-osmolality and hyponatremia (principal)
CPT/HCPCS: 36415; 80048

== ENCOUNTER 2020-08-20 14:21 | Outpatient (RCR) | payer MEDICARE, SELFPAY | END 2020-10-21 10:50 | disposition home or self-care (01) | LOC: PT 14:21 | PROVIDERS: Visit Provider Internal Medicine | DX: I25.10 Atherosclerotic heart disease of native coronary artery without angina pectoris (principal); Z95.5 Presence of coronary angioplasty implant and graft | CPT/HCPCS: 93798 ==

== ENCOUNTER → 2020-10-22 09:14 | Outpatient (POV) | payer MEDICARE, SELFPAY | PROVIDERS: Visit Provider Nurse Practitioner Family | DX: Z00.00 Encounter for general adult medical examination without abnormal findings (principal) ==

== ENCOUNTER → 2020-10-22 10:22 | Outpatient (CLI) | payer MEDICARE, SELFPAY ==
[2020-10-22 11:23] LABS: Blood Urea Nitrogen 15 mg/dl (7-17); Calcium 9.2 mg/dl (8.4-10.2); Carbon Dioxide 28 mmol/L (22.0-30.0); Chloride 98 mmol/L (98-107); Estimated Glomerular Filt Rate 97 ml/min (>60); GFR (African American) 117 ML/MIN (>60); Glucose 97 mg/dl (74-100); Sodium 134 mmol/L (136-145)
== END ==
PROVIDERS: Visit Provider Urology
DX: E87.1 Hypo-osmolality and hyponatremia (principal)
CPT/HCPCS: 36415; 80048

== ENCOUNTER → 2021-01-14 09:54 | Outpatient (CLI) | payer MEDICARE, SELFPAY ==
[2021-01-14 10:28] LABS: Basophils % 0.7 % (0.1-2.0); Eosinophils # 0.1 K/mm3 (0.0-0.4); Eosinophils % 2.4 % (0.1-12.0); Hematocrit 41.1 % (37.0-47.0); Hemoglobin 12.8 g/dL (12.2-16.2); Lymphocytes # 1.5 K/mm3 (0.7-4.5); Lymphocytes % 32.8 % (10-50); Mean Corpuscular HGB Conc 31.2 g/dL (31.8-35.4); Mean Corpuscular Hemoglobin 31.1 pg (27.0-31.2); Mean Corpuscular Volume 99.8 fl (81-99); Mean Platelet Volume 8.1 fl (7.4-10.4); Monocytes # 0.4 K/mm3 (0.1-1.0); Monocytes % 9.1 % (1.7-9.3); Neutrophils # 2.6 K/mm3 (1.8-7.8); Platelet Count 348 K/mm3 (142-424); Red Blood Count 4.12 M/mm3 (4.20-5.40); Red Cell Distribution Width 13.6 % (11.5-17.5); White Blood Count 4.7 K/mm3 (4.8-10.8)
[2021-01-14 10:55] LABS: Alanine Aminotransferase 13 U/L (12-78); Albumin Level 4.2 g/dl (3.5-5.0); Albumin/Globulin Ratio 1.8 (1.1-1.8); Alkaline Phosphatase 51 U/L (38-126); Anion Gap 12.8 mEq/L (5-15); Aspartate Amino Transferase 34 U/L (14-36); Bilirubin,Total 0.3 mg/dl (0.2-1.3); Blood Urea Nitrogen 14 mg/dl (7-17); Calcium 9.2 mg/dl (8.4-10.2); Carbon Dioxide 27 mmol/L (22.0-30.0); Chloride 100 mmol/L (98-107); Chol/HDL Ratio 3.8 (1-3.5); Cholesterol 84 mg/dl (140-200); Estimated Glomerular Filt Rate 154 ml/min (>60); GFR (African American) 187 ML/MIN (>60); Globulin 2.3 g/dL (1.3-3.2); Glucose 104 mg/dl (74-100); HDL Cholesterol 22 mg/dl (40-60); Potassium 4.8 mmoL/L (3.5-5.1); Sodium 135 mmol/L (136-145); Total Protein,Serum 6.5 g/dl (6.3-8.2); Triglycerides 126 mg/dl (30-150); VLDL Cholesterol 25 mg/dL (0-40)
[2021-01-14 11:06] LABS: Direct LDL Cholesterol 39.12 mg/dL (100-129)
== END ==
PROVIDERS: Visit Provider Nurse Practitioner Family
DX: I10 Essential (primary) hypertension (principal); M15.9 Polyosteoarthritis, unspecified
CPT/HCPCS: 36415; 80053; 80061; 85025

== ENCOUNTER → 2021-01-24 09:44 | Outpatient (CLI) | payer MEDICARE, SELFPAY ==
--- NOTE | 2021-01-24 09:48 | XR_ITS ---
PROCEDURE: XR KNEE RT 4V CLINICAL INDICATION: RT knee pain COMPARISON: CR KNEE3L KNEE-3 VIEWS-LT from 08/01/2015 CR KNEE3L KNEE-3 VIEWS-LT from 07/21/2016 FINDINGS: No fracture or dislocation. No lytic or blastic change. There is normal mineralization. There is decrease in the joint space laterally with osteosclerosis and osteophyte formation consistent with moderate osteoarthritic changes. Mild osteoarthritis patellofemoral joint with suspected small suprapatellar effusion. Osteophyte is present along the anterior aspect of the proximal tibia. Other findings:None. IMPRESSION: Osteoarthritis with small knee joint effusion Dictated by: Richard Busby MD 01/24/2021 17:43 Richard Busby MD in [place] 01/24/2021 17:43
== END ==
PROVIDERS: PCP Internal Medicine Adolescent Medicine; Visit Provider Orthopaedic Surgery
DX: M25.561 Pain in right knee (principal)
CPT/HCPCS: 73564

== ENCOUNTER 2021-01-24 11:11 | Outpatient (RCR) | payer MEDICARE, SELFPAY | END 2021-01-24 12:00 | disposition home or self-care (01) | LOC: PT 11:11 | PROVIDERS: Visit Provider Orthopaedic Surgery | DX: M17.11 Unilateral primary osteoarthritis, right knee (principal) | CPT/HCPCS: 97760 ==

== ENCOUNTER 2021-01-25 12:26 | Emergency (ER) | payer MEDICARE, SELFPAY ==
[2021-01-25] VITALS (8 sets, daily range): BP systolic 164–188; BP diastolic 67–130; PULSE 63–82; RESP 15–20; TEMP 36.6–37; O2SAT 90–100; BMI 28.5
--- NOTE | 2021-01-25 12:45 | CT_ITS ---
PROCEDURE INFORMATION: Exam: CT Head Without Contrast Exam date and time: 01/25/2021 12:45 PM Age: 80 years old Clinical indication: Weakness, extremity; Left TECHNIQUE: Imaging protocol: Computed tomography of the head without contrast. Radiation optimization: All CT scans at this facility use at least one of these dose optimization techniques: automated exposure control; mA and/or kV adjustment per patient size (includes targeted exams where dose is matched to clinical indication); or iterative reconstruction. COMPARISON: [facility] MRI-BRAIN W/WO 11/27/2016 9:04 AM FINDINGS: Brain: Periventricular and subcortical white matter areas of hypoattenuation, likely chronic small vessel ischemic change, demyelination, or gliosis. No mass, hemorrhage, or acute infarction. Cerebral ventricles: No ventriculomegaly. Paranasal sinuses: Minimal ethmoid sinus disease. Mastoid air cells: Normal as visualized. Vasculature: Atherosclerotic vascular disease. Bones/joints: Normal. Soft tissues: Unremarkable. IMPRESSION: No acute intracranial abnormality.
--- NOTE | 2021-01-25 12:52 | PC.NURSE ---
TO CT PER STRETCHER
--- NOTE | 2021-01-25 12:56 | PC.NURSE ---
Patient is being taken to CT.
--- NOTE | 2021-01-25 13:03 | HMH.EDGENADL ---
ED Disposition Clinical Impression: TIA (transient ischemic attack) Disposition: Home, Self-Care Condition on Discharge: Good Referrals: Samuel Braun MD [Primary Care Provider] - Barb Davidson MD [Staff Physician] - - Critical Care Critical Care Time: No Attestation: On 01/25/21, the high probability of a clinically significant, sudden or life threatening deterioration of the following system(s) required my full and direct attention, intervention and personal management. The time I documented below is in addition to time spent performing reported procedures but includes the following listed in this critical care notation. Medical Decision Making - Medical Records Medical records reviewed: Yes: I reviewed the patient's medical records. - Zay Inquiry Pt receiving controlled substance: No Vital Signs: 01/25/21 12:27 01/25/21 13:06 01/25/21 13:30 Temperature 98.6 F Temperature Source Oral Pulse Rate 65 69 Pulse Rate [Radial] 71 Respiratory Rate 16 18 16 Blood Pressure 175/79 H 171/77 H Blood Pressure [Right Arm] 174/78 H Blood Pressure Mean 134 108 Blood Pressure Mean [Right Arm] 110 Blood Pressure Position [Right Arm] Sitting 02 Sat by Pulse Oximetry 96 100 98 01/25/21 14:00 01/25/21 14:30 Temperature Temperature Source Pulse Rate 63 82 Pulse Rate [Radial] Respiratory Rate 18 20 Blood Pressure 173/74 H 164/67 H Blood Pressure [Right Arm] Blood Pressure Mean 107 99 Blood Pressure Mean [Right Arm] Blood Pressure Position [Right Arm] 02 Sat by Pulse Oximetry 100 90 L - Lab Data Lab Results 01/25/21 13:05: WBC 8.3, RBC 4.00 L, Hgb 12.6, Hct 38.7, MCV 96.7, MCH 31.6 H, MCHC 32.7, RDW 13.4, Plt Count 322, MPV 7.9, Neut % (Auto) 79.2, Lymph % (Auto) 13.2, [place] % (Auto) 7.1, Eos % (Auto) 0.1, Baso % (Auto) 0.3, Neut # (Auto) 6.6, Lymph # (Auto) 1.1, [place] # (Auto) 0.6, Eos # (Auto) 0.0, Baso # (Auto) 0.0 01/25/21 13:05: Sodium 135 L, Potassium 4.2, Chloride 102, Carbon Dioxide 26, Anion Gap 11.2, BUN 19 H, Creatinine 0.60, Estimated Creat Clear 52, Estimated GFR 97, Est GFR ( Amer) 117, Glucose 105 H, Calcium 9.5, Total Bilirubin 0.2, AST 47 H, ALT 19, Alkaline Phosphatase 55, Troponin I < 0.01, Total Protein 6.9, Albumin 4.4, Globulin 2.5, Albumin/Globulin Ratio 1.8 01/25/21 13:05: PT 11.0, INR 0.97 Result diagrams: 01/25/21 13:05 01/25/21 13:05 Orders (Tests/Meds): ED MEDICATIONS Discontinued Medications Generic Name Dose Route Start Last Admin Trade Name Freq PRN Reason Stop Dose Admin Iopamidol 100 ml 01/25/21 14:53 01/25/21 14:54 Iopamidol-370 (76%);100ml Bottle IV 01/25/21 14:54 100 ml ONCE ONE Administration Sodium Chloride 50 ml 01/25/21 14:53 01/25/21 14:53 0.9 % Sodium Chloride 50 Ml Vial IV 01/25/21 14:54 50 ml ONCE ONE Administration Sodium Chloride 10 ml 01/25/21 14:53 01/25/21 14:53 Sodium Chloride 0.9% 10ml Syr (Rad Only) IV 01/25/21 14:54 10 ml ONCE ONE Administration ORDERS Category Date Time Status Troponin I Q3H Lab 01/25/21 15:45 Ordered Troponin I Q3H Lab 01/25/21 18:45 Ordered Medical Decision Narrative: 80-year-old female to the ED today for further evaluation of TIA symptoms yesterday. Patient is well-appearing on initial evaluation, noted to be ambulatory in the emergency department in no acute distress on initial evaluation. Differential diagnosis includes transient ischemic tract, ACS, TIA, hemorrhagic stroke, acute ischemic stroke. Will further evaluate with CBC CMP troponin, CT head without IV contrast. We may also depending on the findings on the CT head without IV contrast order CT angiography of the head and neck. Given the patient symptoms have resolved this is likely a TIA, she takes aspirin, Plavix, rosuvastatin at home, and so is partially medically optimized. CT head with no evidence of intracranial findings, CT angiography additionally performed with no evidence
[2021-01-25 13:22] LABS: Chloride 102 mmol/L (98-107); Potassium 4.2 mmoL/L (3.5-5.1); Sodium 135 mmol/L (136-145)
[2021-01-25 13:24] LABS: INR 0.97 (0.9-1.1)
[2021-01-25 13:25] LABS: Alanine Aminotransferase 19 U/L (12-78); Albumin Level 4.4 g/dl (3.5-5.0); Albumin/Globulin Ratio 1.8 (1.1-1.8); Alkaline Phosphatase 55 U/L (38-126); Anion Gap 11.2 mEq/L (5-15); Aspartate Amino Transferase 47 U/L (14-36); Bilirubin,Total 0.2 mg/dl (0.2-1.3); Blood Urea Nitrogen 19 mg/dl (7-17); Calcium 9.5 mg/dl (8.4-10.2); Carbon Dioxide 26 mmol/L (22.0-30.0); Creatinine Clearance Estimated 52 mL/min (50-200); Estimated Glomerular Filt Rate 97 ml/min (>60); GFR (African American) 117 ML/MIN (>60); Globulin 2.5 g/dL (1.3-3.2); Glucose 105 mg/dl (74-100); Total Protein,Serum 6.9 g/dl (6.3-8.2)
[2021-01-25 13:26] LABS: Basophils % 0.3 % (0.1-2.0); Eosinophils % 0.1 % (0.1-12.0); Hematocrit 38.7 % (37.0-47.0); Hemoglobin 12.6 g/dL (12.2-16.2); Lymphocytes # 1.1 K/mm3 (0.7-4.5); Lymphocytes % 13.2 % (10-50); Mean Corpuscular HGB Conc 32.7 g/dL (31.8-35.4); Mean Corpuscular Hemoglobin 31.6 pg (27.0-31.2); Mean Corpuscular Volume 96.7 fl (81-99); Mean Platelet Volume 7.9 fl (7.4-10.4); Monocytes # 0.6 K/mm3 (0.1-1.0); Monocytes % 7.1 % (1.7-9.3); Neutrophils # 6.6 K/mm3 (1.8-7.8); Neutrophils % 79.2 % (37.0-80.0); Platelet Count 322 K/mm3 (142-424); Red Cell Distribution Width 13.4 % (11.5-17.5); White Blood Count 8.3 K/mm3 (4.8-10.8)
[2021-01-25 13:40] LABS: Troponin I < 0.01 ng/ml (0.00-0.034)
--- NOTE | 2021-01-25 14:16 | CT_ITS ---
PROCEDURE INFORMATION: Exam: CT Angiography Neck With Contrast Exam date and time: 01/25/2021 2:16 PM Age: 80 years old Clinical indication: Weakness; Additional info: TIA, carotid stenosis eval for risk stratification TECHNIQUE: Imaging protocol: Computed tomography angiography of the neck with contrast. 3D rendering (Not supervised by radiologist): MIP and/or 3D reconstructed images were created by the technologist. Radiation optimization: All CT scans at this facility use at least one of these dose optimization techniques: automated exposure control; mA and/or kV adjustment per patient size (includes targeted exams where dose is matched to clinical indication); or iterative reconstruction. Contrast material: ISOVUE; Contrast volume: 100 ml; Contrast route: INTRAVENOUS (IV); COMPARISON: US CA CAROTID DUPLEX BI 06/19/2020 1:31 PM FINDINGS: Right common carotid artery: No stenosis. No dissection or occlusion. Right internal carotid artery: No stenosis of the extracranial segment. No dissection or occlusion. Right external carotid artery: No occlusion or stenosis of the origin. Left common carotid artery: No stenosis. No dissection or occlusion. Left internal carotid artery: Mixed atherosclerotic plaque within the proximal left ICA, causing approximately 40% luminal narrowing (series 4, image 224). Left external carotid artery: No occlusion or stenosis of the origin. Right vertebral artery: No stenosis. No dissection or occlusion. Left vertebral artery: No stenosis. No dissection or occlusion. Left subclavian artery: Mixed atherosclerotic plaque within the proximal left subclavian artery, causing approximately 40% luminal narrowing. Soft tissues: Normal. No significant soft tissue swelling. Bones/joints: No acute fracture. Multilevel disc findings: Multilevel cervical spine degenerative disc disease, manifest by disc space narrowing osteophyte formation, worst at the C3-C4 through C6-C7 levels. Lungs: Scattered atelectasis within the visualized upper lobes. IMPRESSION: Mixed atherosclerotic plaque within the proximal left ICA, causing approximately 40% luminal narrowing (series 4, image 224). REFERENCES: NASCET CRITERIA. The degree of internal carotid artery stenosis is based on NASCET criteria. Normal is no stenosis. Mild is less than 50% stenosis. Moderate is 50-69% stenosis. Severe is 70% to 99% stenosis. Total occlusion is no detectable patent lumen.
--- NOTE | 2021-01-25 14:16 | CT_ITS ---
PROCEDURE INFORMATION: Exam: CT Angiography Head With Contrast, Arteriography Exam date and time: 01/25/2021 2:16 PM Age: 80 years old Clinical indication: Weakness; Additional info: TIA, carotid stenosis eval for risk stratification TECHNIQUE: Imaging protocol: Computed tomography angiography of the head with contrast. Exam focused on the arteries. 3D rendering (Not supervised by radiologist): MIP and/or 3D reconstructed images were created by the technologist. Radiation optimization: All CT scans at this facility use at least one of these dose optimization techniques: automated exposure control; mA and/or kV adjustment per patient size (includes targeted exams where dose is matched to clinical indication); or iterative reconstruction. Contrast material: ISOVUE; Contrast volume: 100 ml; Contrast route: INTRAVENOUS (IV); COMPARISON: CT HEAD/BRAIN WO CON 01/25/2021 12:57 PM FINDINGS: ANTERIOR CIRCULATION: Right internal carotid artery: Unremarkable. Intracranial segment is patent with no significant stenosis. No aneurysm. Right middle cerebral artery: Unremarkable. No occlusion or significant stenosis. No aneurysm. Right anterior cerebral artery: Unremarkable. No occlusion or significant stenosis. No aneurysm. Left internal carotid artery: Unremarkable. Intracranial segment is patent with no significant stenosis. No aneurysm. Left middle cerebral artery: Unremarkable. No occlusion or significant stenosis. No aneurysm. Left anterior cerebral artery: Unremarkable. No occlusion or significant stenosis. No aneurysm. POSTERIOR CIRCULATION: Right vertebral artery: Unremarkable. No occlusion or significant stenosis. No aneurysm. Left vertebral artery: Unremarkable. No occlusion or significant stenosis. No aneurysm. Basilar artery: Unremarkable. No occlusion or significant stenosis. No aneurysm. Right posterior cerebral artery: Unremarkable. No occlusion or significant stenosis. No aneurysm. Left posterior cerebral artery: Unremarkable. No occlusion or significant stenosis. No aneurysm. Brain: No definite mass, mass effect, or midline shift. Cerebral ventricles: No ventriculomegaly. Bones/joints: Unremarkable. No acute fracture. Soft tissues: Unremarkable. IMPRESSION: No large vessel stenosis or occlusion.
--- NOTE | 2021-01-26 13:14 | ECG_ITS ---
APPROVED REPORT Exam: Resting ECG HR:65 bpm ECG Measurements Heart Rate 65 AXES IN 184 P 64 QRSd 86 QRS 12 QT 374 T 45 QTc 388 Conclusion Normal sinus rhythm Normal ECG Electronically signed by : Samuel Braun MD 01/26/2021 07:01:50
== END 2021-01-25 16:18 | disposition home or self-care (01) ==
PROVIDERS: Emergency Provider Student in an Organized Health Care Education/Training Program; PCP Internal Medicine Adolescent Medicine
DX: G45.9 Transient cerebral ischemic attack, unspecified (principal); I10 Essential (primary) hypertension; E78.5 Hyperlipidemia, unspecified; Z79.899 Other long term (current) drug therapy
CPT/HCPCS: 70450; 70496; 70498; 80053; 84484; 85025; 85610; 93005; 99283; Q9967

== ENCOUNTER → 2021-02-13 09:00 | Outpatient (CLI) | payer MEDICARE, SELFPAY | PROVIDERS: Visit Provider Internal Medicine Adolescent Medicine | DX: N39.0 Urinary tract infection, site not specified (principal); B96.20 Unspecified Escherichia coli [E. coli] as the cause of diseases classified elsewhere | CPT/HCPCS: 87086; 87088; 87186 ==

== ENCOUNTER 2021-02-19 10:00 | Outpatient (RCR) | payer MEDICARE, SELFPAY ==
--- NOTE | 2021-02-11 10:40 | HMH.PTOPEV ---
PT Outpatient Evaluation Rehab PT Outpatient Evaluation Start: 02/11/21 10:29 Freq: Status: Active Protocol: Document 02/11/21 10:29 RAHEEM (Rec: 02/11/21 10:40 RAHEEM [id number]) Electronically Signed By Josse Child, PT 02/11/21 10:29 Outpatient Therapy Subjective History Subjective History Pt reports h/o chronic right knee pain since ~June. Pt reports lateral aspect right knee secondary to arthritic changes. Pt reports recent ' injection has really helped, but this right leg is weak, and I fall some'. Pt reports follow-up appt on 03/07/21 w/ ortho MD. Chief Complaint Pain,Stiff,Weakness Symptom Type Ache,Dull Symptoms Relieved By Rest/Positioning,Heat Symptoms Aggravated By Physical Activity,Walking Prior Functional Limitations Housework,Standing,Squatting, Walking,Stairs Current Functional Limitations Housework,Standing,Squatting, Walking,Stairs Symptom Description Constant but Variable Level of pain today (0-10) 8 Pain scale - at its best (0-10) 5 Pain scale - at its worst (0-10) 8 Hip/Knee Eval Gait Observation General Gait Pattern Observation Antalgic Gait,Wide Based Gait Palpation Tenderness right Knee Palpation Finding Tenderness Knee Palpation Overall Comment 2/4 lateral jt line, 2-3/4 medial jt line MMT Hip Flexion Strength Grade 4- Good- Hip Abduction Strength Grade 3- Fair- Hip Adduction Strength Grade 3 Fair Hip Extension Strength Grade 3- Fair- Hip External Rotation Strength Grade 4 Good Hip Internal Rotation Strength Grade 4 Good Knee Extension Strength Grade 4 Good Knee Flexion Strength Grade 4 Good ROM Knee Flexion Active Range of Motion ( 0-135 degrees) Effusion joint effusion knee exam standard right Mid - Patellar Circumerential Measure ( 37 cm) Outpatient Therapy Assessment Impairments Problems/Impairmments Palpation Tenderness,Impaired Range of Motion,Impaired Strength,Impaired Gait Pattern ,Impaired Walking,Impaired Standing,Impaired Household Care,Impaired Stair Climbing, Impaired Squatting,Increased Edema,Subjective C/O Pain, Impaired Self Care/Self
== END 2021-04-23 07:05 | disposition home or self-care (01) ==
LOC: PT.CARL 10:00
PROVIDERS: PCP Internal Medicine Adolescent Medicine; Visit Provider Orthopaedic Surgery
DX: M17.11 Unilateral primary osteoarthritis, right knee (principal)
CPT/HCPCS: 97014; 97110; 97163; G0283

== ENCOUNTER → 2021-02-24 12:39 | Outpatient (CLI) | payer MEDICARE, SELFPAY ==
--- NOTE | 2021-02-24 12:59 | MR_ITS ---
PROCEDURE INFORMATION: Exam: MR Head Without and With Contrast Exam date and time: 02/24/2021 12:59 PM Age: 80 years old Clinical indication: Pain; Headache; Additional info: TIA. Episode where black spots and unable to talk. Blurred vision x6wks ago. 14ml prohance given. Lot: [id number] exp: Dec 2022 bun: 16 cre: 0.6 gfr: 97 prior [id number] prior MR 11-27-16 TECHNIQUE: Imaging protocol: MR of the head without and with intravenous contrast. Contrast material: PROHANCE; Contrast volume: 14 ml; Contrast route: IV; COMPARISON: CT HEAD/BRAIN WO CON 01/25/2021 12:57 PM FINDINGS: Age-related volume loss. Major vascular flow voids at the skull base are preserved. No extra-axial fluid collection. No midline shift or significant intracranial mass effect. Mild nonspecific white matter gliosis, probable chronic microvascular ischemia. No cerebral edema. No diffusion restriction. No pathologic intracranial enhancement. Visualized paranasal sinuses are clear. Small right mastoid effusion. IMPRESSION: No acute intracranial abnormality.
[2021-02-24 13:06] LABS: Blood Urea Nitrogen 16 mg/dl (7-17); Estimated Glomerular Filt Rate 97 ml/min (>60); GFR (African American) 117 ML/MIN (>60)
== END ==
PROVIDERS: PCP Internal Medicine Adolescent Medicine; Visit Provider Nurse Practitioner Family
DX: G45.9 Transient cerebral ischemic attack, unspecified (principal)
CPT/HCPCS: 36415; 70553; 82565; 84520; A9576

== ENCOUNTER 2021-09-16 13:59 | Emergency (ER) | payer MEDICARE, SELFPAY ==
[2021-09-16 14:00] VITALS: BP 133/66; PULSE 76; RESP 17; TEMP 36.9; O2SAT 96; BMI 27.4
[2021-09-16 14:06] VITALS: BP 133/66; PULSE 77; O2SAT 97
[2021-09-16 14:10] VITALS: BMI 27.4
--- NOTE | 2021-09-16 14:11 | XR_ITS ---
FINAL REPORT CLINICAL HISTORY: covid, chest congestion FINDINGS: The heart size is normal. The mediastinum is normal. There is patchy airspace opacity in the right infrahilar region probably due to acute pneumonia. There are no pleural effusions. There is no pneumothorax. There is no osseous abnormality. IMPRESSION: Acute right infrahilar pneumonia. Reviewed, Interpreted and Dictated by Lionel Napoles MD Transcribed by Gregory Barron Authenticated and [facility]
--- NOTE | 2021-09-16 14:16 | PC.NURSE ---
Rad at bedside performing CXR
--- NOTE | 2021-09-16 14:20 | HMH.EDGENADL ---
ED Disposition Clinical Impression: COVID-19, CAP (community acquired pneumonia) Disposition: Home, Self-Care Condition on Discharge: Good Instructions: Pneumonia-Adult, DI for COVID-19 (Suspected or Confirmed ) Additional Instructions: follow up PCP as needed, return here for worse or any concerns Prescriptions: Fluconazole [Diflucan 150mg tab] 150 mg PO ONCE #1 tab Transmission Status: Pending to [facility] Azithromycin [Zithromax 250mg tab] 250 mg PO DIRECTED #6 tab Transmission Status: Received by [facility] Referrals: Samuel Braun MD [Primary Care Provider] - - Critical Care Critical Care Time: No Attestation: On 09/16/21, the high probability of a clinically significant, sudden or life threatening deterioration of the following system(s) required my full and direct attention, intervention and personal management. The time I documented below is in addition to time spent performing reported procedures but includes the following listed in this critical care notation. Medical Decision Making - Medical Records Medical records reviewed: Yes: I reviewed the patient's medical records. - Zay Inquiry Pt receiving controlled substance: No Vital Signs: 09/16/21 14:00 09/16/21 14:06 09/16/21 14:30 Temperature 98.4 F Temperature Source Oral Pulse Rate 77 76 Pulse Rate [Right Radial] 76 Respiratory Rate 17 Blood Pressure 133/66 154/74 H Blood Pressure [Right Arm] 133/66 Blood Pressure Mean [Right Arm] 88 Blood Pressure Source [Right Arm] Automatic Cuff Blood Pressure Position [Right Arm] Sitting 02 Sat by Pulse Oximetry 96 97 98 Oxygen Delivery Method Room Air Orders (Tests/Meds): ORDERS Category Date Time Status Rapid PCR Covid and Flu A/B Stat Lab 09/16/21 14:16 Received Medical Decision Narrative: discussed poss paxlovid, however, already 4 days into illness, unlikely to benefit, and feeling better today, lungs clear, ok with plan to continue symptomatic care General Adult HPI - General Chief complaint: Upper Respiratory Infection Stated complaint: at home covid pos 09/15, cough, congestion, h/a Time Seen by Provider: 09/16/21 14:20 Mode of Arrival: Ambulatory Limitations: No Limitations Description of Symptoms (Recalled from ER Triage Doc. by RN): Pt states that she had a positive home COVID test last night. C/O chest congestion. States that her family recommended her come to ED and get evaluated. - History of Present Illness HPI narrative: 4 days chest congestion, worse 2 days ago, betetr today, pos home covid test, vaxxed Onset (ago): day(s) Radiation: non-radiation Consistency: constant, intermittent Exacerbating factors: none Associated symptoms: cough - Related Data Home Medications Medication Instructions Recorded Confirmed Celecoxib [Celebrex] 200 mg PO DAILY 09/07/17 08/01/21 Duloxetine HCl [Cymbalta 30mg 1 tab PO DAILY 09/07/17 08/01/21 capsule] Gabapentin [Gabapentin 300mg Cap] 300 mg PO BID 09/07/17 08/01/21 Hydrocod/Acet 5/325 mg [[place] 1 tab PO Q4HP PRN 09/07/17 08/01/21 5/325mg tablet] alprazolam 0.5 mg tablet 0.25 mg PO HS tab 02/08/18 08/01/21 ropinirole 0.25 mg tablet 0.25 mg PO HS PRN 05/18/19 08/01/21 Aspirin [Aspirin 81mg EC Tab] 81 mg PO DAILY 07/09/20 08/01/21 Rosuvastatin Calcium 20 mg PO DAILY 07/09/20 08/01/21 Blood Pressure Test Kit [Blood See Rx Instructions .ROUTE 01/25/21 08/01/21 Pressure Monitor Manual] .MEDSUPPLY Pantoprazole Sodium See Rx Instructions .ROUTE .COMPLEX 01/25/21 08/01/21 bisoproloL fumarate [Bisoprolol 5 mg PO QHS 01/25/21 08/01/21 Fumarate] Previous Rx's Medication Instructions Recorded losartan 50 mg tablet See Rx Instructions .ROUTE 05/28/21 .COMPLEX #60 tab clopidogrel 75 mg tablet See Rx Instructions .ROUTE 07/29/21 .COMPLEX #90 tab Azithromycin [Zithromax 250mg 250 mg PO DIRECTED #6 tab 09/16/21 tab] Fluconazole [Diflucan 150m
--- NOTE | 2021-09-16 14:26 | PC.NURSE ---
MD AT BEDSIDE TO EVALUATE PT
[2021-09-16 14:30] VITALS: BP 154/74; PULSE 76; O2SAT 98
[2021-09-16 14:32] LABS: Influenza A, PCR Not Detected (NotDetected); Influenza B, PCR Not Detected (NotDetected)
[2021-09-16 14:50] VITALS: BP 154/74; PULSE 75; RESP 20; TEMP 36.9; O2SAT 97
[2021-09-16 15:24] LABS: Coronavirus 19, PCR Detected (NotDetected)
== END 2021-09-16 14:50 | disposition home or self-care (01) ==
PROVIDERS: Emergency Provider Emergency Medicine; PCP Internal Medicine Adolescent Medicine
DX: U07.1 COVID-19 (principal); R94.31 Abnormal electrocardiogram [ECG] [EKG]; R94.39 Abnormal result of other cardiovascular function study; R42 Dizziness and giddiness; E87.1 Hypo-osmolality and hyponatremia; J06.9 Acute upper respiratory infection, unspecified; I11.9 Hypertensive heart disease without heart failure; I25.10 Atherosclerotic heart disease of native coronary artery without angina pectoris; I35.1 Nonrheumatic aortic (valve) insufficiency; I65.23 Occlusion and stenosis of bilateral carotid arteries; E78.5 Hyperlipidemia, unspecified; M19.90 Unspecified osteoarthritis, unspecified site; Z79.51 Long term (current) use of inhaled steroids; Z79.82 Long term (current) use of aspirin; Z79.899 Other long term (current) drug therapy; Z88.2 Allergy status to sulfonamides; Z88.8 Allergy status to other drugs, medicaments and biological substances; Z95.5 Presence of coronary angioplasty implant and graft; Z82.49 Family history of ischemic heart disease and other diseases of the circulatory system
CPT/HCPCS: 71045; 99283; C9803; U0003; U0005

== ENCOUNTER 2021-10-17 15:56 | Emergency (ER) | payer MEDICARE, SELFPAY ==
--- NOTE | 2021-10-17 16:03 | HMH.EDUTC ---
[facility] Disposition Clinical Impression: Tick bite Qualifiers: Encounter type: initial encounter Site of tick bite: unspecified site Qualified Code(s): W57.XXXA - Bitten or stung by nonvenomous insect and other nonvenomous arthropods, initial encounter Fatigue Qualifiers: Fatigue type: unspecified Qualified Code(s): R53.83 - Other fatigue Arthralgia Qualifiers: Joint pain location: unspecified Qualified Code(s): M25.50 - Pain in unspecified joint Disposition: Home, Self-Care Condition on Discharge: Good Instructions: [place] Tick Fever, Protect Yourself from Tickborne Illnesses Additional Instructions: Keep the affected area clean and dry. Follow up with your regular doctor. Take the antibiotics as directed and apply the topical antibiotics as directed. Apply warm wet compresses to the affected area three or four times per day. GO TO THE ER FOR ANY WORSENING SYMPTOMS Prescriptions: Fluconazole [Diflucan 150mg tab] 150 mg PO ONCE #1 tab Transmission Status: Received by [facility] Doxycycline Monohydrate [Doxycycline [place] 100mg Tab] 100 mg PO Q12 10 Days #20 tab Transmission Status: Received by [facility] Referrals: Samuel Braun MD [Primary Care Provider] - Time of Disposition: 16:48 Medical Decision Making - Medical Records Medical records reviewed: No: I reviewed the patient's medical records. - Zay Inquiry Pt receiving controlled substance: No Vital Signs: 10/17/21 16:16 10/17/21 16:54 Temperature 98.1 F 98.1 F Temperature Source Oral Pulse Rate 82 Pulse Rate [Left] 82 Respiratory Rate 19 19 Blood Pressure 120/59 L Blood Pressure [Right Arm] 120/59 L Blood Pressure Mean [Right Arm] 79 02 Sat by Pulse Oximetry 99 [facility] HPI - General Stated complaint: [email or web address] tic bite Under L Arm Time Seen by Provider: 10/17/21 16:03 - History of Present Illness Provider Complaint: She states that 2 days ago she found a tick embedded in her skin beneath her left arm. Since then the site has been tender and itchy. - Related Data Home Medications Medication Instructions Recorded Confirmed Celecoxib [Celebrex] 200 mg PO DAILY 09/07/17 10/10/21 Gabapentin [Gabapentin 300mg Cap] 300 mg PO BID 09/07/17 10/10/21 Hydrocod/Acet 5/325 mg [[place] 1 tab PO Q4HP PRN 09/07/17 10/10/21 5/325mg tablet] ropinirole 0.25 mg tablet 0.25 mg PO HS PRN 05/18/19 10/10/21 Aspirin [Aspirin 81mg EC Tab] 81 mg PO DAILY 07/09/20 10/10/21 Rosuvastatin Calcium 20 mg PO DAILY 07/09/20 10/10/21 Blood Pressure Test Kit [Blood See Rx Instructions .ROUTE 01/25/21 10/10/21 Pressure Monitor Manual] .MEDSUPPLY Pantoprazole Sodium See Rx Instructions .ROUTE .COMPLEX 01/25/21 10/10/21 bisoproloL fumarate [Bisoprolol 5 mg PO QHS 01/25/21 10/10/21 Fumarate] alprazolam 0.25 mg tablet 0.25 mg PO HS tab 10/10/21 10/10/21 doxycycline hyclate 100 mg capsule 100 mg PO DAILY cap 10/10/21 10/10/21 duloxetine 60 mg capsule,delayed 60 mg PO DAILY cap 10/10/21 10/10/21 release fluticasone propionate 50 2 spray NS DAILY gm 10/10/21 10/10/21 mcg/actuation nasal spray,suspension Previous Rx's Medication Instructions Recorded losartan 50 mg tablet See Rx Instructions .ROUTE 05/28/21 .COMPLEX #60 tab clopidogrel 75 mg tablet See Rx Instructions .ROUTE 07/29/21 .COMPLEX #90 tab Fluconazole [Diflucan 150mg tab] 150 mg PO ONCE #1 tab 09/16/21 Doxycycline Monohydrate 100 mg PO Q12 10 Days #20 tab 10/17/21 [Doxycycline [place] 100mg Tab] Fluconazole [Diflucan 150mg tab] 150 mg PO ONCE #1 tab 10/17/21 Allergies Allergy/AdvReac Type Severity Reaction Status Date / Time Sulfa (Sulfonamide Allergy Verified 10/17/21 16:25 Antibiotics) atorvastatin [From Lipitor] AdvReac Mild myalgia Verified 10/17/21 16:25 [facility] History - Hepatitis A Screen Attestation statement:: This patient has been screened for Hepatitis A risk factors. I have revi
[2021-10-17 16:16] VITALS: BP 120/59; PULSE 82; RESP 19; TEMP 36.7; O2SAT 99; BMI 28.1
[2021-10-17 16:54] VITALS: BP 120/59; PULSE 82; RESP 19; TEMP 36.7
== END 2021-10-17 16:55 | disposition home or self-care (01) ==
PROVIDERS: Emergency Provider Nurse Practitioner Family; PCP Internal Medicine Adolescent Medicine
DX: S40.862A Insect bite (nonvenomous) of left upper arm, initial encounter (principal); R55 Syncope and collapse; R94.31 Abnormal electrocardiogram [ECG] [EKG]; R94.39 Abnormal result of other cardiovascular function study; M25.50 Pain in unspecified joint; E87.1 Hypo-osmolality and hyponatremia; R53.82 Chronic fatigue, unspecified; I10 Essential (primary) hypertension; I25.10 Atherosclerotic heart disease of native coronary artery without angina pectoris; E78.5 Hyperlipidemia, unspecified; M19.90 Unspecified osteoarthritis, unspecified site; I35.1 Nonrheumatic aortic (valve) insufficiency; I65.23 Occlusion and stenosis of bilateral carotid arteries; Z79.1 Long term (current) use of non-steroidal anti-inflammatories (NSAID); Z79.51 Long term (current) use of inhaled steroids; Z79.82 Long term (current) use of aspirin; Z79.899 Other long term (current) drug therapy; Z88.2 Allergy status to sulfonamides; Z88.8 Allergy status to other drugs, medicaments and biological substances; Z82.49 Family history of ischemic heart disease and other diseases of the circulatory system; W57.XXXA Bitten or stung by nonvenomous insect and other nonvenomous arthropods, initial encounter
CPT/HCPCS: 99213; G0463

== ENCOUNTER → 2021-11-18 11:16 | Outpatient (CLI) | payer MEDICARE, SELFPAY ==
--- NOTE | 2021-11-18 11:23 | XR_ITS ---
FINAL REPORT CLINICAL HISTORY: LT LOWER LEG PAIN, fell COMPARISON: May 06, 2018 FINDINGS: AP pelvis A single view was obtained. There is no acute fracture or dislocation. There are mild degenerative changes of both hips. There is moderate degenerative change in the lower lumbar spine. There is no acute soft tissue abnormality. IMPRESSION: No acute bony abnormality. Reviewed, Interpreted and Dictated by Shiva Henley III, MD Transcribed by Gregory Barron Authenticated and . [facility]
--- NOTE | 2021-11-18 11:23 | XR_ITS ---
FINAL REPORT CLINICAL HISTORY: LT LOWER LEG PAIN, fell FINDINGS: Three views of the left knee reveal no evidence of fracture or dislocation. There is mild lateral subluxation of the tibia relative to the distal femur. There are mild degenerative changes. There is no evidence of joint effusion. Vascular calcifications are present. IMPRESSION: No acute abnormality identified. Reviewed, Interpreted and Dictated by Shiva Henley III, MD Transcribed by Gregory Barron Authenticated and [facility]
--- NOTE | 2021-11-18 11:23 | XR_ITS ---
FINAL REPORT CLINICAL HISTORY: LT LOWER LEG PAIN, fell FINDINGS: Multiple views of the left femur were obtained. There is no acute fracture or dislocation. There are mild degenerative changes. Vascular calcifications are present. IMPRESSION: No acute fracture. Reviewed, Interpreted and Dictated by Shiva Henley III, MD Transcribed by Gregory Barron Authenticated and . [facility]
== END ==
PROVIDERS: PCP Nurse Practitioner Family; Visit Provider Nurse Practitioner Family
DX: M79.605 Pain in left leg (principal); M25.562 Pain in left knee
CPT/HCPCS: 72190; 73551; 73562

== ENCOUNTER → 2021-12-09 10:40 | Outpatient (CLI) | payer MEDICARE, SELFPAY ==
--- NOTE | 2021-12-09 10:46 | MM_ITS ---
PROCEDURE INFORMATION: Exam: MG Bilateral Screening 3D Mammography Exam date and time: 12/09/2021 10:45 AM Age: 80 years old Clinical indication: Screening examination TECHNIQUE: Imaging protocol: Bilateral Screening tomosynthesis and 2D mammography including computer-aided detection (CAD) when performed. COMPARISON: 1. MG MM DIG SCREENING MAMM BI W/CAD 01/25/2020 10:54 AM 2. MG MM DIG SCREENING MAMM BI W/CAD 01/16/2019 11:12 AM 3. MG SCBI MM Dig screening mamm BI w/CAD 08/26/2017 9:08 AM FINDINGS: MAMMOGRAPHY: Breast composition: There are scattered areas of fibroglandular density. Mass: No suspicious masses. Architectural distortion: No suspicious distortion. Calcifications: No suspicious calcifications. Asymmetric density: None. Skin thickening: None. Axillary adenopathy: None. IMPRESSION: No mammographic evidence of malignancy. Annual screening is recommended unless otherwise clinically indicated. ASSESSMENT: BI-RADS Category 1: Negative
== END ==
PROVIDERS: PCP Internal Medicine Adolescent Medicine; Visit Provider Internal Medicine Adolescent Medicine
DX: Z12.31 Encounter for screening mammogram for malignant neoplasm of breast (principal)
CPT/HCPCS: 77063; 77067

== ENCOUNTER → 2021-12-19 10:22 | Outpatient (CLI) | payer MEDICARE, SELFPAY ==
--- NOTE | 2021-12-19 10:28 | XR_ITS ---
FINAL REPORT CLINICAL HISTORY: knee pain joint pain when going up stairs COMPARISON: 01/24/2021 FINDINGS: Right knee Three views were obtained. Mild degenerative changes are present. There is irregularity in the medial femoral condyle articular surface measuring 7 mm worrisome for an osteochondral lesion. Mild vascular calcification is identified. No acute fracture is identified. IMPRESSION: Findings worrisome for an osteochondral lesion as above. If indicated, consider MRI. Reviewed, Interpreted and Dictated by Shiva Henley III, MD Transcribed by Radha Barbosa Authenticated and [facility]
--- NOTE | 2021-12-19 13:23 | CA_ITS ---
FINAL REPORT TECHNIQUE: Color Doppler, duplex Doppler and briggs scale sonography of the bilateral neck arterial vasculature was performed. Velocities were measured in the carotid arteries. Stenosis evaluation based on the validated velocity criteria. CLINICAL HISTORY: herlinda/dizziness FINDINGS: The peak systolic velocity of the right common carotid artery is 65 cm/s. The peak systolic velocity of the right internal carotid artery is 68 cm/s and end diastolic velocity 16 cm/s. The ICA/CCA ratio is 1.8. A small amount of plaque is present. The right external carotid artery is patent. The right vertebral artery is patent with antegrade flow. The peak systolic velocity of the left common carotid artery is 65 cm/s. The peak systolic velocity of the left internal carotid artery is 70 cm/s and end diastolic velocity 18 cm/s. The ICA/CCA ratio is 1.6. A small amount of plaque is present. The left external carotid artery is patent.The left vertebral artery is patent with antegrade flow. IMPRESSION: Less than 50% bilateral carotid stenoses. Bilateral patent vertebral arteries with antegrade flow. If indicated, CTA or MRA could further evaluate. Reviewed, Interpreted and Dictated by Shiva Henley III, MD Transcribed by Gregroy Barron Authenticated and [facility]
[2021-12-19 15:40] LABS: Basophils % 0.5 % (0.1-2.0); Eosinophils % 0.5 % (0.1-12.0); Hematocrit 40.7 % (37.0-47.0); Hemoglobin 12.5 g/dL (12.2-16.2); Lymphocytes # 0.6 K/mm3 (0.7-4.5); Lymphocytes % 8.7 % (10-50); Mean Corpuscular HGB Conc 30.8 g/dL (31.8-35.4); Mean Corpuscular Hemoglobin 31.7 pg (27.0-31.2); Mean Corpuscular Volume 102.8 fl (81-99); Mean Platelet Volume 7.2 fl (7.4-10.4); Monocytes # 0.2 K/mm3 (0.1-1.0); Monocytes % 3.5 % (1.7-9.3); Neutrophils # 5.5 K/mm3 (1.8-7.8); Neutrophils % 86.7 % (37.0-80.0); Platelet Count 386 K/mm3 (142-424); Red Blood Count 3.96 M/mm3 (4.20-5.40); Red Cell Distribution Width 13.6 % (11.5-17.5); White Blood Count 6.3 K/mm3 (4.8-10.8)
[2021-12-19 16:02] LABS: MANUAL DIFFERENTIAL MANUAL DIFFERENTIAL (MANUAL DIFF)
[2021-12-19 16:50] LABS: Alanine Aminotransferase 14 U/L (12-78); Albumin Level 4.1 g/dl (3.5-5.0); Alkaline Phosphatase 72 U/L (38-126); Aspartate Amino Transferase 32 U/L (14-36); Bilirubin,Direct 0.1 mg/dl (0.0-0.4); Bilirubin,Indirect 0.2 mg/dL (0.0-0.9); Bilirubin,Total 0.3 mg/dl (0.2-1.3); Bilirubin,Unconjugated 0.2 mg/dL (0.0-1.1); Blood Urea Nitrogen 12 mg/dl (7-17); Calcium 8.8 mg/dl (8.4-10.2); Carbon Dioxide 28 mmol/L (22.0-30.0); Chloride 94 mmol/L (98-107); Chol/HDL Ratio 3.3 (1-3.5); Cholesterol 76 mg/dl (140-200); Estimated Glomerular Filt Rate 96 ml/min (>60); GFR (African American) 117 ML/MIN (>60); Glucose 80 mg/dl (74-100); HDL Cholesterol 23 mg/dl (40-60); Magnesium 1.7 mg/dl (1.6-2.3); Sodium 133 mmol/L (136-145); Total Protein,Serum 6.5 g/dl (6.3-8.2); Triglycerides 111 mg/dl (30-150); VLDL Cholesterol 22 mg/dL (0-40)
[2021-12-19 17:06] LABS: Free T4 (Free Thyroxine) 0.86 ng/dl (0.78-2.19)
[2021-12-19 17:07] LABS: Direct LDL Cholesterol 38.55 mg/dL (100-129)
[2021-12-19 17:20] LABS: Thyroid Stimulating Hormone 1.09 uIU/mL (0.465-4.68)
[2021-12-19 18:58] LABS: Hypochromasia 1+; Lymphocytes % 8 % (10-50); Macrocytosis 2+; Neutrophils % 88 % (42-76); Platelet Estimate Normal; Total Cells Counted 100
== END ==
PROVIDERS: PCP Internal Medicine Adolescent Medicine; Visit Provider Physician Assistant
DX: R42 Dizziness and giddiness; I65.23 Occlusion and stenosis of bilateral carotid arteries; I25.10 Atherosclerotic heart disease of native coronary artery without angina pectoris; I11.9 Hypertensive heart disease without heart failure; M25.561 Pain in right knee; E78.2 Mixed hyperlipidemia; I27.20 Pulmonary hypertension, unspecified; I67.2 Cerebral atherosclerosis; R09.89 Other specified symptoms and signs involving the circulatory and respiratory systems
CPT/HCPCS: 36415; 73562; 80048; 80061; 80076; 83735; 84439; 84443; 85007; 85025; 93880

== ENCOUNTER → 2022-03-06 12:37 | Outpatient (CLI) | payer MEDICARE, SELFPAY ==
--- NOTE | 2022-03-06 13:01 | XR_ITS ---
FINAL REPORT CLINICAL HISTORY: lt knee pain COMPARISON: November 2021 FINDINGS: 3 views of the left knee were obtained. There is no acute fracture or dislocation. There are mild degenerative changes. There is a small joint effusion. There is mild vascular calcification. IMPRESSION: Mild degenerative change with a small joint effusion. Reviewed, Interpreted and Dictated by Shiva Henley III, MD Transcribed by Gregory Barron Authenticated and [facility]
== END ==
LOC: RAD 12:40
PROVIDERS: PCP Internal Medicine Adolescent Medicine; Visit Provider Orthopaedic Surgery
DX: M25.562 Pain in left knee (principal)
CPT/HCPCS: 73562

== ENCOUNTER → 2022-03-17 10:55 | Outpatient (CLI) | payer MEDICARE, SELFPAY ==
[2022-03-17 11:24] LABS: Basophils % 0.7 % (0.1-2.0); Eosinophils # 0.1 K/mm3 (0.0-0.4); Hematocrit 42.1 % (37.0-47.0); Hemoglobin 12.9 g/dL (12.2-16.2); Lymphocytes # 1.4 K/mm3 (0.7-4.5); Lymphocytes % 29.7 % (10-50); Mean Corpuscular HGB Conc 30.6 g/dL (31.8-35.4); Mean Corpuscular Hemoglobin 30.1 pg (27.0-31.2); Mean Corpuscular Volume 98.1 fl (81-99); Mean Platelet Volume 7.4 fl (7.4-10.4); Monocytes # 0.4 K/mm3 (0.1-1.0); Monocytes % 9.4 % (1.7-9.3); Neutrophils # 2.7 K/mm3 (1.8-7.8); Neutrophils % 58.1 % (37.0-80.0); Platelet Count 353 K/mm3 (142-424); Red Blood Count 4.29 M/mm3 (4.20-5.40); White Blood Count 4.6 K/mm3 (4.8-10.8)
[2022-03-17 12:47] LABS: Chloride 99 mmol/L (98-107); Potassium 4.9 mmoL/L (3.5-5.1); Sodium 135 mmol/L (136-145)
[2022-03-17 12:49] LABS: Alanine Aminotransferase 13 U/L (12-78); Aspartate Amino Transferase 30 U/L (14-36); Bilirubin,Unconjugated 0.3 mg/dL (0.0-1.1); Blood Urea Nitrogen 13 mg/dl (7-17); Estimated Glomerular Filt Rate 96 ml/min (>60); GFR (African American) 117 ML/MIN (>60)
[2022-03-17 12:50] LABS: Albumin Level 4.1 g/dl (3.5-5.0); Alkaline Phosphatase 61 U/L (38-126); Anion Gap 11.9 mEq/L (5-15); Bilirubin,Direct 0.3 mg/dl (0.0-0.4); Bilirubin,Indirect 0.3 mg/dL (0.0-0.9); Bilirubin,Total 0.6 mg/dl (0.2-1.3); Calcium 9.1 mg/dl (8.4-10.2); Carbon Dioxide 29 mmol/L (22.0-30.0); Chol/HDL Ratio 4.3 (1-3.5); Cholesterol 85 mg/dl (140-200); Glucose 93 mg/dl (74-100); HDL Cholesterol 20 mg/dl (40-60); Total Protein,Serum 6.4 g/dl (6.3-8.2); Triglycerides 141 mg/dl (30-150); VLDL Cholesterol 28 mg/dL (0-40)
[2022-03-17 13:02] LABS: Direct LDL Cholesterol 37.96 mg/dL (100-129)
[2022-03-17 13:05] LABS: Free T4 (Free Thyroxine) 1.02 ng/dl (0.78-2.19)
[2022-03-17 13:20] LABS: Thyroid Stimulating Hormone 1.89 uIU/mL (0.465-4.68)
== END ==
PROVIDERS: PCP Internal Medicine Adolescent Medicine; Visit Provider Nurse Practitioner
DX: R42 Dizziness and giddiness; R09.89 Other specified symptoms and signs involving the circulatory and respiratory systems; I25.10 Atherosclerotic heart disease of native coronary artery without angina pectoris; I27.20 Pulmonary hypertension, unspecified; I11.9 Hypertensive heart disease without heart failure; I65.23 Occlusion and stenosis of bilateral carotid arteries; E78.2 Mixed hyperlipidemia; I67.2 Cerebral atherosclerosis; R61 Generalized hyperhidrosis
CPT/HCPCS: 36415; 80048; 80061; 80076; 83735; 84439; 84443; 85025

== ENCOUNTER → 2022-04-24 10:58 | Outpatient (CLI) | payer MEDICARE, SELFPAY ==
--- NOTE | 2022-04-24 11:00 | CA_ITS ---
APPROVED REPORT EXAM: Comprehensive 2D, Doppler, and color-flow Echocardiogram Cotton Classer: Laura Gasria RT(R) Ht: 5 ft 4 in Wt: 163lbs BSA: 1.79 BP: 132/63 mmHg Indications: SOA, HTN, hyperlipidemia, CAD, abn EKG, PHTN, DD 2D Dimensions LVOT 1.96 cm (M/F) 1.5-2.5 LA Volume 35.40 mL LA Volume Index 19.78 mL/m2 (M/F) 16-34 M-Mode Dimensions RVDd 2.54 cm (0.9-2.6) LA Diam 3.01 cm (1.9-4.0) LVDd 4.39 cm (3.5-5.7) Ao Diam 2.94 cm (2.0-3.7) LVDs 3.14 cm (3.5-5.7) IVSd 0.64 cm (0.6-1.1) PWd 0.79 cm (0.6-1.1) EF (Teich) 55.20% FS 28.50% EDV (Teich) 87.20 mL ESV (Teich) 39.10 mL LV Diastology E Decel Time 260.00 (160-240 msec) E/A Ratio 0.9 MED E' 10.90 (< 7 cm/sec) E'/MED E' Ratio 6.73 (>14) LAT E' 9.20 (<10 cm/sec) E/LAT E' Ratio 7.98 (>14) Mitral Valve MV E Max Oskar. 73.00 (40-130 cm/s) MV A Velocity 85.00 (40-130 cm/s) E/A Ratio 0.86 MV Decel. Time 260.00 (160-240 ms) MV PHT 76.00 ms Tricuspid Valve TR P. Velocity 263.00 cm/s RAP Estimate 15.00 mmHg RVSP 42.80 mmHg Left Ventricle Left atrium is mildly enlarged, left ventricle is normal size mild concentric left ventricular hypertrophy, estimated ejection fraction 55% with no regional wall motion abnormality, Doppler evidence of impaired LV relaxation seen. Right Ventricle Right atrium and right ventricular normal size and contractility. Aortic Valve Aortic valve is minimally thickened and fibrosed there is no aortic stenosis or aortic insufficiency. Mitral Valve Mitral valve grossly normal, there is trace mitral regurgitation. Tricuspid Valve Tricuspid valve grossly normal, there is trace tricuspid regurgitation. Calculated right ventricular systolic pressure is 42 mmHg. Pulmonic Valve Pulmonic valve is poorly visualized. Great Vessels Aortic root is normal size. Inferior vena cava is normal size with normal inspiratory collapse. Pericardium No significant pericardial effusion noted. Conclusion 1. Normal left ventricular size preserved left ventricular systolic function, estimated ejection fraction 55% with no regional wall motion abnormality, Doppler evidence of impaired relaxation. 2. Trace mitral and tricuspid regurgitation, calculated right ventricular systolic pressure is 42 mmHg. 3. No significant pericardial effusion. 4. Inferior vena cava is normal size with normal inspiratory collapse. Electronically signed by : Zhang Clark MD 04/24/2022 12:57:53
--- NOTE | 2022-04-24 11:30 | NM_ITS ---
APPROVED REPORT Exam: Nuclear Stress Test Indication: chest pain..fatigue Patient Location: Outpatient Stress Tech: Angle Powell [place] Tech:ELISSA Chaves RT(R)(N) Ht: 5 ft 4 in Wt: 162 lbs Bra Size: 40c HR: 66 bpm BP: 169/80 mmHg BSA: 1.79 m2 TID: 1.12 BMI: 27.8 History: chest pain..fatigue Procedure: Patient received 0.4 mg of intravenous Lexiscan, resting heart rate 66 bpm, resting blood pressure 169/80 mmHg, with Lexiscan maximum heart rate achieved was 96 bpm which is Less than 85 % of the maximum predicted heart rate and blood pressure was 169/80 mmHg. With Lexiscan, patient denied any complaint of chest pain. patient was unable to lay on her belly for prone images Electrocardiogram Resting electrocardiogram shows sinus rhythm, with Lexiscan there is less than 1.[address] segment depression noted from the baseline EKG. The EKG portion of the Lexiscan is nondiagnostic. Cardiac Stress and Resting SPECT Images: Cardiac Stress and Resting SPECT images were obtained using technetium 99m Myoview 32.9 mCi stress and 10.56 mCi at rest. Gated SPECT analysis of segmental wall motion and calculation of the ejection fraction also done. Cardiac stress and rest SPECT images show uniform myocardial activity without segmental perfusion abnormality, computer derived ejection fraction is 65% with no regional wall motion abnormality, right ventricle is normal size and contractility. Conclusion: 1. The EKG portion of the Lexiscan is nondiagnostic. 2. No scintigraphic evidence of reversible ischemia seen, computer derived ejection fraction is 65% with no regional wall motion abnormality, right ventricle is normal size and contractility. 3. Normal Lexiscan Myoview study. Electronically signed by : Zhang Clark MD 04/24/2022 19:48:58
--- NOTE | 2022-04-24 12:59 | CA_ITS ---
APPROVED REPORT Exam: Pharmacologic Technologist: Angle Pickard, Ht: 5 ft 4 in Wt: 163 lbs BSA: 1.79 m2 HR: 61 bpm BP: 169/80 mmHg Medical History Medications: Alprazolam,,,,, Aspirin,,,,, Gabapentin,,,,, Losartan,,,,, Pantoprazole,,,,, Flonase,,,,, Ropinirole,,,,, Crestor,,,,, DulOXETINE,,,,, BisOPROLOL,,,,, Fluconazole,,,,, Hydrocodone-Acetaminophen,,,,, Stress Test Details Test: LEXISCJERO Reason for pharmacologic stress test: physical limitation. HR Resting HR: 66 bpm Max Heart Rate (APMHR): 141.372249 bpm Max HR Achieved: 96 bpm Target HR (85% APMHR): 119.948334 bpm % of APMHR: 68.09 Recovery HR: 61 bpm BP Resting BP: 169/80 mmHg Max BP: 169/80 mmHg Recovery BP: 162.0/70.0 mmHg ECG Clinical Exercise duration: 03:59 min Highest Stage Achieved: Exercise capacity: 1.0 METs Stress ECG Conclusion Symptoms: SOA/ Headache Arrhythmias/Ectopy: none ST-T Changes: <1.5mm ST Changes Test Summary REST . . . . . . . Resting REST 16:04 . . 66 . 169/ 80 . . Stage 1 01:00 . . 84 . . . . Stage 2 01:00 . . 93 . . . . Stage 3 01:00 . . 91 . 151/ 67 . . Stage 4 00:59 . . 94 . 140/ 68 . Stop exercise at 03:59 RECOVERY 00:05 . . 93 . . . . Electronically signed by : Zhang Clark MD 04/24/2022 13:35:59
== END ==
LOC: RT 10:59
PROVIDERS: PCP Internal Medicine Adolescent Medicine; Visit Provider Nurse Practitioner Family
DX: E78.2 Mixed hyperlipidemia (principal); I11.9 Hypertensive heart disease without heart failure; I25.10 Atherosclerotic heart disease of native coronary artery without angina pectoris; I27.20 Pulmonary hypertension, unspecified; I34.0 Nonrheumatic mitral (valve) insufficiency; I35.1 Nonrheumatic aortic (valve) insufficiency
CPT/HCPCS: 78452; 93017; 93306; A9502; J2785

== ENCOUNTER → 2022-05-29 12:34 | Outpatient (CLI) | payer MEDICARE, SELFPAY ==
--- NOTE | 2022-05-29 12:56 | XR_ITS ---
FINAL REPORT CLINICAL HISTORY: RADICULOPATHY FINDINGS: LUMBAR SPINE AP and lateral views were obtained. There is no acute fracture or subluxation. There is thoracolumbar scoliosis convex to the left proximally 45 degrees. There are advanced hypertrophic changes of degenerative disc disease at T11-12, T12-1 and L1-2. There is disc space narrowing at L5-S1. Bilateral facet hypertrophy is seen in the mid and lower lumbar spine. IMPRESSION: Degenerative changes without acute bony abnormality. Reviewed, Interpreted and Dictated by Lionel Napoles MD Transcribed by Bhavani Harrell Authenticated and [facility]
== END ==
PROVIDERS: PCP Internal Medicine Adolescent Medicine; Visit Provider Registered Nurse
DX: M54.16 Radiculopathy, lumbar region (principal)
CPT/HCPCS: 72100

== ENCOUNTER 2022-06-13 11:24 | Emergency (ER) | payer MEDICARE, SELFPAY ==
[2022-06-13 12:00] VITALS: BP 140/57; PULSE 69; RESP 20; TEMP 37.2; O2SAT 98; BMI 17.2
--- NOTE | 2022-06-13 12:03 | EXP.UTC ---
Discharge Plan Disposition Patient Disposition: Home, Self-Care Condition: Good Prescriptions Prescriptions: No Action duloxetine 60 mg capsule,delayed release(DR/EC) 60 mg PO DAILY alprazolam 0.25 mg tablet 0.25 mg PO HS doxycycline hyclate 100 mg capsule 100 mg PO DAILY fluticasone propionate 50 mcg/actuation spray,suspension 2 spray NS DAILY fluconazole 150 MG tablet 150 mg PO ONCE Qty: 1 0RF losartan 100 mg tablet 100 mg PO DAILY gabapentin 300 MG capsule 300 mg PO BID hydrocodone-acetaminophen 1 TAB tablet 1 tab PO Q4HP PRN (Reason: PAIN) ropinirole 0.25 mg tablet 0.25 mg PO HS PRN (Reason: Restless leg) rosuvastatin 20 MG tablet 20 mg PO DAILY aspirin 81 MG tablet,delayed release (DR/EC) 81 mg PO DAILY pantoprazole 20 MG tablet,delayed release (DR/EC) See Rx Instructions .Route .COMPLEX Rx Instructions: TAKE 1 TABLET BY MOUTH ONCE DAILY bisoprolol fumarate 5 MG tablet 5 mg PO QHS (DME) blood pressure monitor 1 EACH kit See Rx Instructions .Route .MEDSUPPLY Rx Instructions: As directed Referrals Follow up/Referrals: Samuel Braun MD [Primary Care Provider] - See instructions Activity Restrictions/Add. Instructions Additional Instructions/Restrictions: Drink plenty of fluids. Take tylenol for pain or fever. Return if you begin to have difficulty breathing. Follow up with your regular doctor. GO TO THE ER FOR ANY WORSENING SYMPTOMS Quarantine until you know the results of your covid-19 test. Notify your school or workplace of your results and follow their instructions regarding return to work/school. Clinical Impressions Clinical Impression: Acute viral syndrome Instructions Patient Instructions: Coronavirus Disease 2019, Preventing the Spread of Coronavirus Discharge Instructions Discharge ED Provider: Jose Magallanes [facility] General Stated complaint: headache Time Seen by Provider: 06/13/22 12:03 History of Present Illness Provider Complaint: She has been exposed to covid-19 in her home. She states that she has had a headache since yesterday. She denies other symptoms so far. She denies any shortness of breath. Related Data Home Medications Medication Instructions Recorded Confirmed gabapentin 300 mg capsule 300 mg PO BID Pain 09/07/17 06/13/22 hydrocodone 5 mg-acetaminophen 325 1 tab PO Q4HP PRN PAIN 09/07/17 06/13/22 mg tablet ropinirole 0.25 mg tablet 0.25 mg PO HS PRN Restless leg 05/18/19 04/01/22 aspirin 81 mg tablet,delayed 81 mg PO DAILY stents 07/09/20 04/01/22 release rosuvastatin 20 mg tablet 20 mg PO DAILY Cholesterol 07/09/20 06/13/22 bisoprolol fumarate 5 mg tablet 5 mg PO QHS High blood pressure 01/25/21 06/13/22 blood pressure monitor 01/25/21 04/01/22 pantoprazole 20 mg tablet,delayed See Rx Instructions .Route 01/25/21 06/13/22 release .COMPLEX GERD alprazolam 0.25 mg tablet 0.25 mg PO HS . 10/10/21 06/13/22 doxycycline hyclate 100 mg capsule 100 mg PO DAILY 10/10/21 04/01/22 duloxetine 60 mg capsule,delayed 60 mg PO DAILY Depression 10/10/21 06/13/22 release fluticasone propionate 50 2 spray intranasal DAILY 10/10/21 04/01/22 mcg/actuation nasal spray,suspension losartan 100 mg tablet 100 mg PO DAILY . 06/13/22 06/13/22 Previous Rx's Medication Instructions Recorded fluconazole 150 mg tablet 150 mg PO ONCE #1 tab 09/16/21 Allergies Allergy/AdvReac Type Severity Reaction Status Date / Time Sulfa (Sulfonamide Allergy Verified 06/13/22 12:24 Antibiotics) atorvastatin [From Lipitor] AdvReac Mild myalgia [facility] Dis[facility]: The information contained in this section may have been updated after the patient was seen, as this information can be updated by other users. Medical History Abnormal cardiovascular stress test Abnormal EKG
[2022-06-13 12:21] LABS: UTC Strep Screen (Rapid) Negative (Negative)
[2022-06-13 13:01] VITALS: BP 140/57; PULSE 69; RESP 20; TEMP 37.2; O2SAT 98
== END 2022-06-13 13:00 | disposition home or self-care (01) ==
PROVIDERS: Emergency Provider Nurse Practitioner Family; PCP Internal Medicine Adolescent Medicine
DX: R51.9 Headache, unspecified (principal); B34.9 Viral infection, unspecified; Z20.822 Contact with and (suspected) exposure to COVID-19
CPT/HCPCS: 87880; 99212; 99214; C9803; G0463; U0003; U0005

== ENCOUNTER → 2022-08-14 10:50 | Outpatient (CLI) | payer MEDICARE, SELFPAY ==
--- NOTE | 2022-08-14 11:18 | XR_ITS ---
FINAL REPORT CLINICAL HISTORY: RIGHT FOOT PAIN FINDINGS: Three views of the right foot show no evidence of acute displaced fracture. There is a severe hallux valgus deformity. Osteopenia is present. There are mild scattered degenerative changes. A pes planus deformity is present. There is a small plantar calcaneal spur. IMPRESSION: Severe hallux valgus deformity, osteopenia, and scattered degenerative change as described above. Reviewed, Interpreted and Dictated by Augusta Timmons MD Transcribed by Susy Matias Authenticated and [facility]
[2022-08-14 11:52] LABS: Chloride 98 mmol/L (98-107); Potassium 4.6 mmoL/L (3.5-5.1); Sodium 135 mmol/L (136-145)
[2022-08-14 11:54] LABS: Blood Urea Nitrogen 19 mg/dl (7-17)
[2022-08-14 11:55] LABS: Alanine Aminotransferase 18 U/L (12-78); Albumin Level 4.1 g/dl (3.5-5.0); Albumin/Globulin Ratio 1.6 (1.1-1.8); Alkaline Phosphatase 52 U/L (38-126); Anion Gap 15.6 mEq/L (5-15); Aspartate Amino Transferase 32 U/L (14-36); Bilirubin,Total 0.3 mg/dl (0.2-1.3); Calcium 9.2 mg/dl (8.4-10.2); Carbon Dioxide 26 mmol/L (22.0-30.0); Estimated Glomerular Filt Rate 96 ml/min (>60); GFR (African American) 117 ML/MIN (>60); Globulin 2.5 g/dL (1.3-3.2); Glucose 85 mg/dl (74-100); Total Protein,Serum 6.6 g/dl (6.3-8.2)
== END ==
PROVIDERS: PCP Internal Medicine Adolescent Medicine; Visit Provider Podiatrist Foot & Ankle Surgery
DX: M20.11 Hallux valgus (acquired), right foot (principal); M79.671 Pain in right foot
CPT/HCPCS: 36415; 73630; 80053

== ENCOUNTER → 2023-01-07 09:23 | Outpatient (CLI) | payer MEDICARE, SELFPAY ==
--- NOTE | 2023-01-07 09:27 | XR_ITS ---
FINAL REPORT CLINICAL HISTORY: Osteoporosis screening COMPARISON: 03/18/2020 FINDINGS: Using L1-4, the bone mineral density of the spine is 1.302 g/cm2, corresponding to T-score of 2.3, within normal limits. Previously 1.277 g/cm2 with a T-score of 2.1. Using the left hip, the bone mineral density of the femoral neck is 0.814 g/cm2, corresponding to a T-score of -1.0, within normal limits. Previously 0.807 g/cm2 with T-score of-1.1. Using the right hip, the bone mineral density of the femoral neck is 0.953 g/cm2, corresponding to a T-score of 0.1, within normal limits. Previously 0.892 g/cm2 with T-score of -0.4. NOTE: T-score: Standard deviation compared with peak bone mass of young adult mean. *Following the recommendations of the International Society of Bone densitometry, classification of hip BMD is based on the lower of two T-scores; total hip or femoral neck. IMPRESSION: Normal bone mineral density of the lumbar spine and hips. Reviewed, Interpreted and Dictated by Shiva Henley III, MD Transcribed by Annita Cardoza Authenticated and [facility]
--- NOTE | 2023-01-07 09:27 | MM_ITS ---
PROCEDURE INFORMATION: Exam: MG Bilateral Screening 3D Mammography Exam date and time: 01/07/2023 9:41 AM Age: 82 years old Clinical indication: Screening mammogram TECHNIQUE: Imaging protocol: Bilateral Screening tomosynthesis and 2D mammography including computer-aided detection (CAD) when performed. COMPARISON: 1. MG MM DIG SCREENING MAMM BI W/CAD 12/09/2021 10:45 AM 2. MG MM DIG SCREENING MAMM BI W/CAD 01/25/2020 10:54 AM 3. MG MM DIG SCREENING MAMM BI W/CAD 01/16/2019 11:12 AM 4. MG SCBI MM Dig screening mamm BI w/CAD 08/26/2017 9:08 AM FINDINGS: MAMMOGRAPHY: Breast composition: There are scattered areas of fibroglandular density. Mass: None. Architectural distortion: No new or suspicious architectural distortion. Calcifications: No new or suspicious calcifications are present Asymmetric density: No new or suspicious asymmetric density is present Skin thickening: None. Axillary adenopathy: None. IMPRESSION: No mammographic evidence of malignancy. Recommend annual screening mammography unless otherwise clinically indicated. ASSESSMENT: BI-RADS category 1: Negative
== END ==
PROVIDERS: PCP Internal Medicine Adolescent Medicine; Visit Provider Nurse Practitioner Family
DX: Z12.31 Encounter for screening mammogram for malignant neoplasm of breast (principal); M81.0 Age-related osteoporosis without current pathological fracture; M16.12 Unilateral primary osteoarthritis, left hip
CPT/HCPCS: 77063; 77067; 77080

== ENCOUNTER 2023-04-03 10:38 | Emergency (ER) | payer MEDICARE, SELFPAY ==
[2023-04-03 10:40] VITALS: BP 174/83; PULSE 75; RESP 18; TEMP 36.7; O2SAT 98; BMI 28.3
--- NOTE | 2023-04-03 10:58 | XR_ITS ---
PROCEDURE INFORMATION: Exam: XR Chest Exam date and time: 04/03/2023 11:06 AM Age: 82 years old Clinical indication: Other: AMS TECHNIQUE: Imaging protocol: Radiologic exam of the chest. Views: 1 view. COMPARISON: CR XR CHEST PORTABLE 09/16/2021 2:21 PM FINDINGS: Lungs: Mild increased interstitial opacities in both lungs likely represents mild pulmonary edema. Patchy opacity in the right lung base may be due to vascular crowding or infection, stable. Pleural spaces: Unremarkable. No pleural effusion. No pneumothorax. Heart/Mediastinum: Unremarkable. No cardiomegaly. Moderate elevation of right hemidiaphragm is seen. Vasculature: The aorta is calcified and tortuous. Bones/joints: Moderate levoscoliosis of the thoracolumbar junction is seen. IMPRESSION: 1. Mild increased interstitial opacities in both lungs likely represents mild pulmonary edema. Patchy opacity in the right lung base may be due to vascular crowding or infection, stable. 2. The aorta is calcified and tortuous. 3. Moderate levoscoliosis of the thoracolumbar junction.
--- NOTE | 2023-04-03 10:58 | CT_ITS ---
PROCEDURE INFORMATION: Exam: CT Head Without Contrast Exam date and time: 04/03/2023 11:06 AM Age: 82 years old Clinical indication: Altered mental status/memory loss; Additional info: AMS TECHNIQUE: Imaging protocol: Computed tomography of the head without contrast. Radiation optimization: All CT scans at this facility use at least one of these dose optimization techniques: automated exposure control; mA and/or kV adjustment per patient size (includes targeted exams where dose is matched to clinical indication); or iterative reconstruction. COMPARISON: MR HEAD/BRAIN WO/W CON 02/24/2021 1:13 PM FINDINGS: Brain: Moderate chronic microvascular ischemic changes are noted in the periventricular areas. Mild diffuse cerebral atrophy is seen. Cerebral ventricles: No ventriculomegaly. Paranasal sinuses: Visualized sinuses are unremarkable. No fluid levels. Mastoid air cells: Visualized mastoid air cells are well aerated. Bones/joints: Unremarkable. No acute fracture. Soft tissues: Unremarkable. Vasculature: Vertebral artery calcifications are seen. IMPRESSION: 1. No acute findings. 2. Moderate chronic microvascular ischemic changes with mild diffuse cerebral atrophy.
--- NOTE | 2023-04-03 11:04 | PC.NURSE ---
DR SIMON AT BEDSIDE
[2023-04-03 11:10] LABS: Basophils % 0.3 % (0.1-2.0); Eosinophils # 0.2 K/mm3 (0.0-0.4); Eosinophils % 2.2 % (0.1-12.0); Hematocrit 30.3 % (37.0-47.0); Hemoglobin 10.1 g/dL (12.2-16.2); Lymphocytes # 1.1 K/mm3 (0.7-4.5); Lymphocytes % 10.8 % (10-50); Mean Corpuscular HGB Conc 33.3 g/dL (31.8-35.4); Mean Corpuscular Hemoglobin 31.7 pg (27.0-31.2); Mean Corpuscular Volume 95.2 fl (81-99); Mean Platelet Volume 7.1 fl (7.4-10.4); Monocytes # 0.9 K/mm3 (0.1-1.0); Monocytes % 8.6 % (1.7-9.3); Neutrophils % 78.1 % (37.0-80.0); Platelet Count 460 K/mm3 (142-424); Red Blood Count 3.18 M/mm3 (4.20-5.40); Red Cell Distribution Width 13.6 % (11.5-17.5); White Blood Count 10.2 K/mm3 (4.8-10.8)
[2023-04-03] MEDS: LACTATED RINGERS 1000ML 1,000 ML 999 ML IV (11:13)
[2023-04-03 11:14] LABS: Chloride 103 mmol/L (98-107); Potassium 4.1 mmoL/L (3.5-5.1); Sodium 133 mmol/L (136-145)
[2023-04-03 11:17] LABS: Alanine Aminotransferase 17 U/L (12-78); Albumin Level 3.3 g/dl (3.5-5.0); Albumin/Globulin Ratio 1.2 (1.1-1.8); Alkaline Phosphatase 87 U/L (38-126); Anion Gap 11.1 mEq/L (5-15); Aspartate Amino Transferase 29 U/L (14-36); Bilirubin,Total 0.7 mg/dl (0.2-1.3); Blood Urea Nitrogen 11 mg/dl (7-17); Calcium 8.8 mg/dl (8.4-10.2); Carbon Dioxide 23 mmol/L (22.0-30.0); Creatinine Clearance Estimated 51 mL/min (50-200); Estimated Glomerular Filt Rate 119 ml/min (>60); GFR (African American) 144 ML/MIN (>60); Globulin 2.8 g/dL (1.3-3.2); Glucose 101 mg/dl (74-100); Total Protein,Serum 6.1 g/dl (6.3-8.2)
[2023-04-03 11:20] VITALS: BP 159/71; PULSE 69; RESP 20; O2SAT 96
[2023-04-03 11:26] LABS: C-Reactive Protein 88.7 mg/L (0-4)
--- NOTE | 2023-04-03 11:29 | ED_ITS ---
Discharge Plan Disposition Patient Disposition: Home, Self-Care Condition: Good Prescriptions Prescriptions: No Action duloxetine 60 mg capsule,delayed release(DR/EC) 60 mg PO DAILY alprazolam 0.25 mg tablet 0.25 mg PO HS doxycycline hyclate 100 mg capsule 100 mg PO DAILY fluticasone propionate 50 mcg/actuation spray,suspension 2 spray NS DAILY diclofenac sodium 50 mg tablet,delayed release (DR/EC) PO losartan 100 mg tablet See Rx Instructions .ROUTE .COMPLEX Qty: 90 3RF Dose Instruction: TAKE 1 TABLET BY MOUTH ONCE DAILY Rx Instructions: TAKE 1 TABLET BY MOUTH ONCE DAILY fluconazole 150 MG tablet 150 mg PO ONCE Qty: 1 0RF gabapentin 300 MG capsule 300 mg PO BID hydrocodone-acetaminophen 1 TAB tablet 1 tab PO Q4HP PRN (Reason: PAIN) ropinirole 0.25 mg tablet 0.25 mg PO HS PRN (Reason: Restless leg) rosuvastatin 20 MG tablet 20 mg PO DAILY aspirin 81 MG tablet,delayed release (DR/EC) 81 mg PO DAILY pantoprazole 20 MG tablet,delayed release (DR/EC) See Rx Instructions .Route .COMPLEX Rx Instructions: TAKE 1 TABLET BY MOUTH ONCE DAILY bisoprolol fumarate 5 MG tablet 5 mg PO QHS (DME) blood pressure monitor 1 EACH kit See Rx Instructions .Route .MEDSUPPLY Rx Instructions: As directed Referrals Follow up/Referrals: Susan English APRN [Primary Care Provider] - See instructions Activity Restrictions/Add. Instructions Additional Instructions/Restrictions: You were evaluated in the ER for concerns of confusion. As discussed, stop the tramadol. Give 1 dose of gabapentin tonight before sleep, it is even better if she is able to sleep in her own home for familiarity. Stop the oxycodone and if there is breakthrough pain give the hydrocodone that she has previously taken. Follow-up with primary care physician as soon as possible for reevaluation, also follow-up with orthopedics for reevaluation as scheduled. Return to the ER with any new, worsening, or otherwise concerning symptoms. Clinical Impressions Clinical Impression: Polypharmacy, Drug-induced delirium Instructions Patient Instructions: DI for Altered Mental Status Discharge ED Provider: Duane Quiros Adult [facility] General Chief complaint: Altered Mental Status Stated complaint: Knee surgery 03/26/23 confused Time Seen by Provider: 04/03/23 10:56 Mode of Arrival: Wheelchair Source of Information: Patient Limitations: No Limitations Description of Symptoms (Recalled from ER Triage Doc. by RN): Patient's daughter states that the patient had a total knee replacement 2 weeks ago and now has started to have a lot of confusion. Upon arrival to the emergency room patient is alert and oriented x 4. History of Present Illness HPI narrative: This 82-year-old female presents to the ER with concerns of altered mental status. Patient had a knee replacement 8 days ago and started having confusion 4 days after surgery. She has been on tramadol and oxycodone. Daughter states that she has been reducing the patient's pain medications as she thought it may be contributing to her altered mental status. Patient is also having hallucinations and calling her other family telling people about them. Patient admits that she knows that they are not real but they seem extremely real. Daughter admits patient does have history of urinary tract infections and wipes back to front. Patient is currently oriented. Daughter states her confusion seem to only be at nighttime but is now progressing and is intermittent through the day as well. No other complaints of symptoms at this time. Related Data Home Medications Medication Instructions Recorded Confirmed gabapentin 300 mg capsule 300 mg PO BID Pain 09/07/17 02/16/23 hydrocodone 5 mg-acetaminophen 325 1 tab PO Q4HP PRN PAIN 09/07/17 02/16/23 mg tablet ropinirole 0.25 mg tablet 0.25 mg PO HS PRN Restless leg 05/18/19 02/16/23 aspirin 81 mg tablet,delayed 81 mg PO DAILY stents 07/09/20 02/16/23 release rosuvastatin 20 mg tablet 20 mg PO DAILY Cholesterol 07/09/20 02/16/23 bisoprolol fumarate 5 mg tablet 5 mg PO QHS High blood pressure 01/25/21 02/16/23 blood pressure monitor 01/25/21 02/16/23 pantoprazole 20 mg tablet,delayed See Rx Instructions .Route 01/25/21 02/16/23 release .COMPLEX GERD alprazolam 0.25 mg tablet 0.25 mg PO HS . 10/10/21 02/16/23 doxycycline hyclate 100 mg capsule 100 mg PO DAILY 10/10/21 02/16/23 duloxetine 60 mg capsule,delayed 60 mg PO DAILY Depression 08/05/22 12/12/23 release fluticasone propionate 50 2 spray intranasal DAILY 10/10/21 02/16/23 mcg/actuation nasal spray,suspension diclofenac sodium 50 mg mg PO 02/16/23 02/16/23 tablet,delayed release Previous Rx's Medication Instructions Recorded fluconazole 150 mg tablet 150 mg PO ONCE #1 tab 09/16/21 losartan 100 mg tablet See Rx Instructions .Route 09/14/22 .COMPLEX #90 tabs Allergies Allergy/AdvReac Type Severity Reaction Status Date / Time Sulfa (Sulfonamide Allergy Verified 02/16/23 11:12 Antibiotics) atorvastatin [From Lipitor] AdvReac Mild myalgia Verified 02/16/23 11:12 PFSH [facility] Disclaimer: The information contained in this section may have been updated after the patient was seen, as this information can be updated by other users. Medical History (Updated 04/03/23 @ 13:17 by Duane Quiros MD) Abnormal cardiovascular stress test Abnormal EKG Aortic insufficiency Bilateral carotid artery stenosis CAD (coronary artery disease) Diaphoresis Dizziness Dizziness Dizziness Dizziness HHD (hypertensive heart disease) HLD (hyperlipidemia) HTN (hypertension) Hyponatremia Near syncope Unsteady gait Social History Smoking Status: Never smoker second hand exposure: No alcohol intake: never substance use type: denies use current occupational status: retired Travel in the last 8 weeks: None housing: house current occupational exposures/hazards: No caffeine: Yes ROS Obtained: Yes All systems reviewed & no additional complaints except as documented Constitutional Constitutional: Denies chills, Denies fever(s), Denies headache(s) and Denies weakness Eyes Eyes: Denies change in vision ENT Ears, Nose, Mouth, and Throat: Denies dizziness, Denies headache(s), Denies nasal congestion and Denies sore throat Cardiovascular Cardiovascular: Denies chest pain, Denies dyspnea and Denies leg edema Respiratory Respiratory: Denies cough and Denies dyspnea Gastrointestinal Gastrointestingal: Denies constipation, diarrhea, nausea or vomiting Genitourinary Female Genitourinary: Denies dysuria Musculoskeletal Musculoskeletal: Denies arthralgias, Denies myalgias, Denies numbness and Denies tingling Integumentary/Breasts Skin/Breast: Denies change in pigmentation Neurologic Neurologic: Reports confusion, Denies dizziness, Denies headache(s), Denies numbness, Denies tingling and Denies weakness Physical Exam General General appearance: alert and in no apparent distress Head Head exam: atraumatic and normocephalic Eye Eye exam: Present PERRL and EOMI ENT ENT exam: Present mucous membranes moist Neck Neck exam: Present normal inspection and full ROM Chest Chest inspection: Present symmetric chest wall rise Respiratory Respiratory exam: Present normal lung sounds bilaterally; Absent respiratory distress, wheezes or stridor Cardiovascular Cardiovascular exam: Present regular rate and normal rhythm Abdominal Exam Abdominal exam: Present soft; Absent distention or tenderness Extremities Exam Extremities exam: Present tenderness, normal capillary refill and other (Right knee appears to be healing well. Dressing is clean, dry, intact. Mild swelling and bruising but no erythema or heat. Patient has good range of motion of the knee given recent operation. Neurovascularly intact distally) Neurological Exam Neurological exam: Present alert and oriented X3; Absent motor sensory deficit Psychiatric Psychiatric exam: Present normal affect and normal mood Skin Skin exam: Present warm and dry Medical Decision Making Zay Inquiry Pt receiving controlled substance: No Vital Signs: 04/03/23 10:40 04/03/23 11:20 04/03/23 11:31 Temperature 98.1 F Temperature Source Oral Pulse Rate 69 69 Pulse Rate [Radial] 75 Respiratory Rate 18 20 18 Blood Pressure 159/71 H 194/89 H Blood Pressure [Left Arm] 174/83 H Blood Pressure Mean 77 124 Blood Pressure Mean [Left Arm] 113 Blood Pressure Source [Left Arm] Automatic Cuff Blood Pressure Position [Left Arm] Supine 02 Sat by Pulse Oximetry 98 96 97 Oxygen Delivery Method Room Air 04/03/23 12:00 04/03/23 12:30 Temperature Temperature Source Pulse Rate 70 71 Pulse Rate [Radial] Respiratory Rate 18 18 Blood Pressure 178/79 H 161/80 H Blood Pressure [Left Arm] Blood Pressure Mean 112 122 Blood Pressure Mean [Left Arm] Blood Pressure Source [Left Arm] Blood Pressure Position [Left Arm] 02 Sat by Pulse Oximetry 99 97 Oxygen Delivery Method Lab Data Lab Results 04/03/23 10:54: WBC 10.2, RBC 3.18 L, Hgb 10.1 L, Hct 30.3 L, MCV 95.2, MCH 31.7 H, MCHC 33.3, RDW 13.6, Plt Count 460 H, MPV 7.1 L, Neut % (Auto) 78.1, Lymph % (Auto) 10.8, [place] % (Auto) 8.6, Eos % (Auto) 2.2, Baso % (Auto) 0.3, Neut # (Auto) 8.0 H, Lymph # (Auto) 1.1, [place] # (Auto) 0.9, Eos # (Auto) 0.2, Baso # (Auto) 0.0, ESR > 140 H, Sodium 133 L, Potassium 4.1, Chloride 103, Carbon Dioxide 23, Anion Gap 11.1, BUN 11, Creatinine 0.50 L, Estimated Creat Clear 51, Estimated GFR 119, Est GFR ( Amer) 144, Glucose 101 H, Calcium 8.8, Total Bilirubin 0.7, AST 29, ALT 17, Alkaline Phosphatase 87, C-Reactive Protein 88.7 H, Total Protein 6.1 L, Albumin 3.3 L, Globulin 2.8, Albumin/Globulin Ratio 1.2 04/03/23 11:54: Urine Color Yellow, Urine Appearance Clear, Urine pH 7.0, Ur Specific [place] 1.015, Urine Protein Negative, Urine Glucose (UA) Negative, Urine Ketones Negative, Urine Blood Negative, Urine Nitrate Negative, Urine Bilirubin Negative, Urine Urobilinogen 2.0, Ur Leukocyte Esterase Negative, Urine RBC None, Urine WBC None, Ur Squamous Epith Cells Occasional, Urine Bacteria Trace 04/03/23 10:54 04/03/23 10:54 Orders (Tests/Meds): ED MEDICATIONS Discontinued Medications Generic Name Dose Route Start Last Admin Trade Name Freq PRN Reason Stop Dose Admin Lactated Ringer's 1,000 mls @ 999 mls/hr 04/03/23 10:59 04/03/23 11:13 Lactated Ringer's 1000 Ml Bag IV 04/03/23 11:59 999 mls/hr .Q1H1M ONE Administration ORDERS Category Date Time Status CT head/brain wo con Stat Cat Scan 04/03/23 10:58 Completed CXR --portable [XR chest portable] Stat Exams 04/03/23 10:58 Completed CBC w/Auto Diff [Complete Blood Count Auto Diff] Stat Lab 04/03/23 10:54 Completed CMP [Comprehensive Metabolic Panel] Stat Lab 04/03/23 10:54 Completed CRP [C-Reactive Protein] Stat Lab 04/03/23 10:54 Completed ESR [Erythrocyte Sedimentation Rate] Stat Lab 04/03/23 10:54 Completed Urinalysis and Microscopic Stat Lab 04/03/23 11:54 Completed Medical Decision Narrative: In summary, this 82year old female presents to the emergency department today with confusion. On initial evaluation patient is hemodynamically stable, GCS 15, oriented to self, location, year, appropriate postsurgical changes of the right lower extremity, otherwise unremarkable exam. Differential diagnosis includes but is not limited to polypharmacy, delirium, urinary tract infection, pneumonia, considered septic arthritis however patient has no findings of swelling, redness, limited range of motion, fevers, or new pain at the right knee. Also considered electrolyte abnormalities and intracranial lesions. Based on these concerns, I ordered chest x-ray, appropriate laboratory workup, CT head. Patient received IV fluids for treatment. Labs personally reviewed demonstrate no leukocytosis, mild anemia, nonactionable, ESR elevated at greater than 140 and CRP elevated at 88.7, given recent surgery these are not surprising and are nonactionable at this time given otherwise reassuring exam and no leukocytosis. Trace hyponatremia with sodium 133, nonactionable, kidney function appropriate with BUN 11, creatinine 0.5, UA negative for signs of infection. XR personally interpreted demonstrates trace findings of questionable pneumonia though more likely atelectasis based off patient's reassuring exam. See radiology read for final interpretation. CT imaging personally interpreted demonstrate no new acute intracranial abnormality, see radiology read for final interpretation. I had an interactive discussion with Dr. Kamara regarding this 82-year-old female who has confusion in the setting of multiple new medications, postoperative period, and questionable pneumonia on chest x-ray. He evaluated the patient and we have both discussed at length with patient and family the options of medication management such as switching back to patient's normal home medication regimen and stopping tramadol, going back to patient's normal home as she is currently staying with her daughter instead of her son, and Dr. Kamara agrees with all of this. He does not recommend any treatment for the questionable pneumonia at this time as he agrees it is more likely to be atelectasis than pneumonia given patient does not have a leukocytosis, no new oxygen requirement, clear lungs on exam. Patient continues to be stable. Her orientation waxes and wanes slightly but she is still a GCS 15 at this time. Patient and daughter are comfortable with the patient being discharged which we all believe is the most reasonable plan. Recommended to stop the tramadol and oxycodone and give the patient her normal meloxicam, Tylenol, and if needed for breakthrough pain, her hydrocodone. Patient has also not been taking her gabapentin so recommended to give that tonight to help with sleep and pain management as well. Further recommended to make an appointment with primary care physician for immediate reevaluation as well as to follow-up with orthopedics as scheduled regarding the postoperative knee. Daughter at bedside indicated understanding to all instructions. Patient was discharged in stable condition. Critical Care Critical Care Time Critical Care Time: No
[2023-04-03 11:31] VITALS: BP 194/89; PULSE 69; RESP 18; O2SAT 97
[2023-04-03 12:00] VITALS: BP 178/79; PULSE 70; RESP 18; O2SAT 99
[2023-04-03 12:01] LABS: Microscopic, Urine URINE MICROSCOPIC (MICROSCOPIC)
[2023-04-03 12:02] LABS: Appearance,Urine CLEAR (Clear); Bilirubin,Urine Negative (Negative); Blood, Urine Negative (Negative); Color,Urine YELLOW (Yellow); Glucose,Urine (UA) Negative (Negative); Ketones,Urine Negative (Negative); Leukocyte Esterase,Urine Negative (Negative); Nitrate,Urine Negative (Negative); Protein,Urine Negative (Negative); Specific Gravity, Urine 1.015 (1.005-1.030)
[2023-04-03 12:29] LABS: Bacteria,Urine Trace /lpf; Squamous Epithelial Cell,Urine Occasional #/hpf (0-5)
[2023-04-03 12:30] VITALS: BP 161/80; PULSE 71; RESP 18; O2SAT 97
[2023-04-03 12:38] LABS: Erythrocyte Sedimentation Rate > 140 mm/hr (0-30)
--- NOTE | 2023-04-03 12:41 | PC.NURSE ---
DR SIMON SPEAKING WITH DR PALACIOS FOR ADMISSION
[2023-04-03 13:27] VITALS: BP 175/73; PULSE 74; RESP 18; TEMP 36.7; O2SAT 97
--- NOTE | 2023-04-03 13:50 | EXP.MED.CON ---
History of Present Illness *Admission Date: 04/03/23 *Reason for visit:: Confusion *History of present illness: Ms. Pizano is an 82-year-old female with recent 8 days ago of her right knee. She has had 3 to 4 days of increased confusion which is why her daughter brought her to the ER for evaluation. Daughter states that since surgery she has been on tramadol and oxycodone. Tramadol is a new prescription. Prior to surgery she was on hydrocodone and gabapentin. She has been having intermittent hallucinations and seeing things such as small children that are not there. She knows who she is and recognize that she is confused but intermittently has tangential speech. Sleep has been poor over the past 2 nights. Denies fever, cough, chest pain, shortness of breath. No dysuria, nausea or vomiting. Is doing well at home with home health and her family as caregivers. Has been staying with family and not in her own home since surgery. Workup fairly unremarkable in the ER. Medicine was consulted to evaluate for admission versus discharge home. On eval, she is in no acute distress and on room air. Able to participate in interview. [facility] Disclaimer: The information contained in this section may have been updated after the patient was seen, as this information can be updated by other users. Medical History Abnormal cardiovascular stress test Abnormal EKG Aortic insufficiency Bilateral carotid artery stenosis CAD (coronary artery disease) Diaphoresis Dizziness Dizziness Dizziness Dizziness HHD (hypertensive heart disease) HLD (hyperlipidemia) HTN (hypertension) Hyponatremia Near syncope Unsteady gait Social History Smoking Status: Never smoker second hand exposure: No alcohol intake: never substance use type: denies use current occupational status: retired Travel in the last 8 weeks: None housing: house current occupational exposures/hazards: No caffeine: Yes Review of Systems Review of Systems Review of systems (narrative): 14 point review of systems performed, pertinent positives and negatives as per HPI Constitutional Constitutional: Denies headache(s) and Denies weakness ENT Ears, Nose, Mouth, and Throat: Denies dizziness and Denies headache(s) *Musculoskeletal Musculoskeletal: Denies numbness and Denies tingling *Neurologic Neurologic: Reports confusion, Denies dizziness, Denies headache(s), Denies numbness, Denies tingling and Denies weakness Psychiatric Psychiatric: Reports confusion Exam Data for Last 24 hours Vital signs and Labs for Last 24 Hours: Temp Pulse Resp BP Pulse Ox O2 Del Method 98.1 F 74 18 175/73 H 97 Room Air 04/03/23 13:27 04/03/23 13:27 04/03/23 13:27 04/03/23 13:27 04/03/23 12:30 04/03/23 13:27 Laboratory Results - last 24 hr 04/03/23 10:54: WBC 10.2, RBC 3.18 L, Hgb 10.1 L, Hct 30.3 L, MCV 95.2, MCH 31.7 H, MCHC 33.3, RDW 13.6, Plt Count 460 H, MPV 7.1 L, Neut % (Auto) 78.1, Lymph % (Auto) 10.8, [place] % (Auto) 8.6, Eos % (Auto) 2.2, Baso % (Auto) 0.3, Neut # (Auto) 8.0 H, Lymph # (Auto) 1.1, [place] # (Auto) 0.9, Eos # (Auto) 0.2, Baso # (Auto) 0.0, ESR > 140 H, Sodium 133 L, Potassium 4.1, Chloride 103, Carbon Dioxide 23, Anion Gap 11.1, BUN 11, Creatinine 0.50 L, Estimated Creat Clear 51, Estimated GFR 119, Est GFR ( Amer) 144, Glucose 101 H, Calcium 8.8, Total Bilirubin 0.7, AST 29, ALT 17, Alkaline Phosphatase 87, C-Reactive Protein 88.7 H, Total Protein 6.1 L, Albumin 3.3 L, Globulin 2.8, Albumin/Globulin Ratio 1.2 04/03/23 11:54: Urine Color Yellow, Urine Appearance Clear, Urine pH 7.0, Ur Specific [place] 1.015, Urine Protein Negative, Urine Glucose (UA) Negative, Urine Ketones Negative, Urine Blood Negative, Urine Nitrate Negative, Urine Bilirubin Negative, Urine Urobilinogen 2.0, Ur Leukocyte Esterase Negative, Urine RBC None, Urine WBC None, Ur Squamous Epith Cells Occasional, Urine Bacteria Trace I & O for Last 24 hours: Intake & Output 03/31/23 04/01/23 04/02/23/27/24 23:59 23:59 23:59 23:59 Weight 72.575 kg Constitutional Constitutional: no acute distress, average body habitus, chronically ill appearing and cooperative *Routine HEENT Exam Head: Present normocephalic Eye: Present EOMI and PERRL ENT: Present mucous membranes moist *Routine Neck Exam Neck: Present supple; Absent lymphadenopathy Routine Chest/Breast/Axilla Exam Chest wall: Absent tenderness *Routine Respiratory Exam Respiratory: Present CTA bilaterally; Absent rhonchi, wheezes or crackles *Routine Cardiovascular Exam Cardiovascular: Present RRR *Routine Abdominal Exam Abdominal: Present soft and normoactive bowel sounds; Absent tenderness *Routine Extremities Exam Extremities: Present edema (trace in RLE); Absent cyanosis or clubbing Comments: No significant warmth in right knee. Nontender. Bandage dry and intact *Routine Skin Exam Skin: Present warm; Absent rash *Routine Neurological Exam Neurological: Present alert, altered mental status and moving all extremities Comments: Oriented to self and daughter at bedside. Intermittently oriented to place and situation. Recalls specific details about her surgery. Recognizes her confusion. Cannot tell me she is at the hospital. Meds Home Medications and Allergies Home Medications Medication Instructions Recorded Confirmed Type gabapentin 300 mg capsule 300 mg PO BID Pain 09/07/17 02/16/23 History hydrocodone 5 mg-acetaminophen 325 1 tab PO Q4HP PRN PAIN 09/07/17 02/16/23 History mg tablet ropinirole 0.25 mg tablet 0.25 mg PO HS PRN Restless leg 05/18/19 02/16/23 History aspirin 81 mg tablet,delayed 81 mg PO DAILY stents 07/09/20 02/16/23 History release rosuvastatin 20 mg tablet 20 mg PO DAILY Cholesterol 07/09/20 02/16/23 History bisoprolol fumarate 5 mg tablet 5 mg PO QHS High blood pressure 01/25/21 02/16/23 History blood pressure monitor 01/25/21 02/16/23 History pantoprazole 20 mg tablet,delayed See Rx Instructions .Route 01/25/21 02/16/23 History release .COMPLEX GERD fluconazole 150 mg tablet 150 mg PO ONCE #1 tab 09/16/21 02/16/23 Rx alprazolam 0.25 mg tablet 0.25 mg PO HS . 10/10/21 02/16/23 History doxycycline hyclate 100 mg capsule 100 mg PO DAILY 10/10/21 02/16/23 History duloxetine 60 mg capsule,delayed 60 mg PO DAILY Depression 10/10/21 02/16/23 History release fluticasone propionate 50 2 spray intranasal DAILY 10/10/21 02/16/23 History mcg/actuation nasal spray,suspension losartan 100 mg tablet See Rx Instructions .Route 09/14/22 02/16/23 Rx .COMPLEX #90 tabs diclofenac sodium 50 mg mg PO 02/16/23 02/16/23 History tablet,delayed release New Prescriptions to Start Prescriptions: Allergies Allergy/AdvReac Type Severity Reaction Status Date / Time Sulfa (Sulfonamide Allergy Verified 02/16/23 11:12 Antibiotics) atorvastatin [From Lipitor] AdvReac Mild myalgia Verified 02/16/23 11:12 Results Labs 04/03/23 10:54 04/03/23 10:54 Labs: Abnormal lab results 04/03/23 Range/Units 10:54 RBC 3.18 L (4.20-5.40) M/mm3 Hgb 10.1 L (12.2-16.2) g/dL Hct 30.3 L (37.0-47.0) % MCH 31.7 H (27.0-31.2) pg Plt Count 460 H (142-424) K/mm3 MPV 7.1 L (7.4-10.4) fl Neut # (Auto) 8.0 H (1.8-7.8) K/mm3 ESR > 140 H (0-30) mm/hr Sodium 133 L (136-145) mmol/L Creatinine 0.50 L (0.52-1.04) mg/dl Glucose 101 H (74-100) mg/dl C-Reactive Protein 88.7 H (0-4) mg/L Total Protein 6.1 L (6.3-8.2) g/dl Albumin 3.3 L (3.5-5.0) g/dl H & H 04/03/23 Range/Units 10:54 Hgb 10.1 L (12.2-16.2) g/dL Hct 30.3 L (37.0-47.0) % All other labs normal. Assessment and Plan *Assessment and plan (1) Drug-induced delirium: Status: Acute Category: Medical Code(s): R41.0 - Disorientation, unspecified; T50.905A - Adverse effect of unspecified drugs, medicaments and biological substances, initial encounter (2) Polypharmacy: Status: Acute Category: Medical Code(s): Z79.899 - Other correction (current) drug therapy (3) HTN (hypertension): Status: Chronic Qualifiers: Hypertension type: essential hypertension Qualified Code(s): I10 - Essential (primary) hypertension Category: Medical Code(s): I10 - Essential (primary) hypertension (4) CAD (coronary artery disease): Status: Chronic Qualifiers: Coronary Disease-Associated Artery/Lesion type: [place] artery [place] vs. transplanted heart: [place] heart Associated angina: without angina Qualified Code(s): I25.10 - Atherosclerotic heart disease of [place] coronary artery without angina pectoris Category: Medical Code(s): I25.10 - Atherosclerotic heart disease of [place] coronary artery without angina pectoris (5) Status post right knee replacement: Status: Acute Category: Surgical Code(s): Z96.651 - Presence of right artificial knee joint Plan Ms. Pizano is an 82-year-old female who is 8 days post right knee replacement. She presented to the ER because of confusion. Denies cough, chest pain, shortness of breath, nausea or vomiting, dysuria. ER consulted medicine for evaluation. Discussed case, request evaluation because of relatively reassuring labs but finding of confusion intermittently on exam. On talking to the daughter, patient has been on an abnormal regimen for pain with addition of tramadol since her surgery. She has not slept well in the past 2 to 3 days and has become more confused with concern for intermittent hallucinations, seeing things that are not there. She is alert and oriented to person. Intermittently to time. At this time I feel her symptoms are most likely related to polypharmacy. No overt signs of infection. Labs reassuring with normal white cell count, negative urine. Chest imaging personally reviewed, findings most likely from atelectasis and postsurgical with edema rather than pneumonia as she has no shortness of breath, cough, fever, white count. No indication for antibiotics. Recommend discontinuing tramadol given its potential side effect of confusion and psychiatric impact and elderly patients. Would resume Tylenol and meloxicam for pain. Hydrocodone which patient has been on for a long time as needed if needed for breakthrough pain. Recommend resuming gabapentin at night to help with sleep and neuropathy as she has been on this for many years. Would also benefit from transitioning back to her own home. Discussed with daughter and patient through shared decision making that admission in her current state would likely be more problematic than beneficial. Do not think benefits would outweigh risk. Recommend discharge home and continuing to focus on day night routine. Would benefit from going back to her own home where she is in a familiar environment. Stable for discharge, reassurance offered. Family comfortable with plan.
== END 2023-04-03 13:27 | disposition home or self-care (01) ==
PROVIDERS: Emergency Provider Emergency Medicine; PCP Nurse Practitioner Family
DX: R41.82 Altered mental status, unspecified (principal); R44.3 Hallucinations, unspecified; T40.2X5A Adverse effect of other opioids, initial encounter; I35.1 Nonrheumatic aortic (valve) insufficiency; I65.29 Occlusion and stenosis of unspecified carotid artery; I25.10 Atherosclerotic heart disease of native coronary artery without angina pectoris; I11.9 Hypertensive heart disease without heart failure; E78.5 Hyperlipidemia, unspecified
CPT/HCPCS: 70450; 71045; 80053; 81001; 85025; 85651; 86140; 96360; 99285

== ENCOUNTER 2023-05-18 14:00 | Outpatient (RCR) | payer MEDICARE, SELFPAY | END 2023-05-18 15:20 | disposition home or self-care (01) | LOC: PT 14:00 | PROVIDERS: PCP Nurse Practitioner Family; Visit Provider Physician Assistant | DX: M25.561 Pain in right knee (principal); Z96.651 Presence of right artificial knee joint | CPT/HCPCS: 97010; 97110; 97112; 97163 ==

== ENCOUNTER 2023-06-03 12:10 | Outpatient (CLI) | payer MEDICARE, SELFPAY ==
--- NOTE | 2023-06-03 12:16 | XR_ITS ---
FINAL REPORT CLINICAL HISTORY: TRAUMATIC PAIN-- fall COMPARISON: None FINDINGS: The patient has undergone prior right knee arthroplasty. There is no acute fracture or dislocation. The joint spaces are intact. There is no soft tissue abnormality. IMPRESSION: No acute fracture Right total knee arthroplasty. Reviewed, Interpreted and Dictated by Lionel Napoles MD Transcribed by Susy Matias Authenticated and [facility]
== END 2023-06-03 23:59 ==
LOC: RAD 12:12
PROVIDERS: PCP Nurse Practitioner Family; Visit Provider Nurse Practitioner Family
DX: G89.11 Acute pain due to trauma (principal)
CPT/HCPCS: 73590

== ENCOUNTER 2023-06-09 12:59 | Outpatient (POV) | payer MEDICARE, SELFPAY ==
--- NOTE | 2023-06-09 13:14 | EXP.PAIN.OV ---
HPI Data of Consult Patient: new to practice Consult date: 06/09/23 Requesting Physician: Karie Del Rosario APRN Primary Care Provider: Susan nEglish APRN Consult Narrative Reason for consult: Low back pain, right leg pain, ankle pain History of present illness: Ms. Pizano is a 82 year old female who presents today as a new patient. She is a self-referral. Today she rates her pain a 7 out of 10. 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 Patient states this has been going on for 20+ years and has progressively worsened over time. She describes it as an aching, throbbing sensation with numbness and tingling into the extremity. Patient states that she has tried [id number] Tylenol and ibuprofen along with heat and ice and topicals with minimal relief. She states that she has also been with a pain management facility in the past at [facility] in [place] and that they did do injections however she felt like she was not getting adequate coverage and wanted to see if she got better relief with our office. Her son does come to eyes and felt like that he is done much better at our office than other pain management facilities. Patient denies any prior back injury specifically that started this. She does state in the past she has had falls and that over time lifting in her drops may have played a role. Patient denies any prior back surgery other to have a cyst removed years ago. Patient has tried physical therapy and chiropractor with minimal relief. She is interested in any help we may be able to provide.She is prescribed [place] 5 mg 3 times a day and gabapentin 300 mg twice a day from an outside provider. Her Zay has been reviewed and is appropriate. CC: Karie Del Rosario APRN [facility] Disclaimer: The information contained in this section may have been updated after the patient was seen, as this information can be updated by other users. Medical History Abnormal cardiovascular stress test Abnormal EKG Aortic insufficiency Bilateral carotid artery stenosis CAD (coronary artery disease) Diaphoresis Dizziness Dizziness Dizziness Dizziness HHD (hypertensive heart disease) HLD (hyperlipidemia) HTN (hypertension) Hyponatremia Near syncope Unsteady gait Family History (Updated 06/09/23 @ 13:55 by Mirna White RN) Other Unknown family medical history Social History (Updated 06/09/23 @ 13:55 by Mirna White RN) Smoking Status: Never smoker second hand exposure: No alcohol intake: never substance use type: denies use current occupational status: retired Travel in the last 8 weeks: None housing: house current occupational exposures/hazards: No caffeine: Yes Review of Systems Review of Systems Review of systems:: pertinent systems reviewed and negative unless documented below Review of systems (narrative): Review of Systems: General: No recent weight changes, no fever, no sleep disturbances Respiratory: No cough, no shortness of air, no recurring pulmonary infections Cardiovascular/peripheral vascular: No chest pain, no palpitations, no edema, no shortness of breath Gastrointestinal: No new onset incontinence, normal bowel movements reported Genitourinary: No new onset incontinence Musculoskeletal: Low back pain, right leg pain, ankle pain Psychiatric: [Normal mood/affect] Neurological: [Denies weakness in extremities], [denies balance issues] Meds Home Medications and Allergies Home Medications Medication Instructions Recorded Confirmed Type gabapentin 300 mg capsule 300 mg PO BID Pain 09/07/17 06/09/23 History hydrocodone 5 mg-acetaminophen 325 1 tab PO Q4HP PRN PAIN 09/07/17 06/09/23 History mg tablet ropinirole 0.25 mg tablet 0.25 mg PO HS PRN Restless leg 05/18/19 06/09/23 History aspirin 81 mg tablet,delayed 81 mg PO DAILY stents 07/09/20 06/09/23 History release rosuvastatin 20 mg tablet 20 mg PO DAILY Cholesterol 07/09/20 06/09/23 History bisoprolol fumarate 5 mg tablet 5 mg PO QHS High blood pressure 01/25/21 06/09/23 History blood pressure monitor 01/25/21 06/09/23 History pantoprazole 20 mg tablet,delayed See Rx Instructions .Route 01/25/21 06/09/23 History release .COMPLEX GERD fluconazole 150 mg tablet 150 mg PO ONCE #1 tab 09/16/21 06/09/23 Rx alprazolam 0.25 mg tablet 0.25 mg PO HS . 10/10/21 06/09/23 History doxycycline hyclate 100 mg capsule 100 mg PO DAILY 10/10/21 06/09/23 History duloxetine 60 mg capsule,delayed 60 mg PO DAILY Depression 10/10/21 06/09/23 History release fluticasone propionate 50 2 spray intranasal DAILY 10/10/21 06/09/23 History mcg/actuation nasal spray,suspension losartan 100 mg tablet See Rx Instructions .Route 09/14/22 06/09/23 Rx .COMPLEX #90 tabs diclofenac sodium 50 mg 50 mg PO DIRECTED Pain 02/16/23 06/09/23 History tablet,delayed release New Prescriptions to Start Prescriptions: Allergies Allergy/AdvReac Type Severity Reaction Status Date / Time Sulfa (Sulfonamide Allergy Verified 02/16/23 11:12 Antibiotics) atorvastatin [From Lipitor] AdvReac Mild myalgia Verified 02/16/23 11:12 Objective Narrative: Physical Exam: General: Alert and oriented x3, no acute distress, pleasant and cooperative Lungs: Respirations even and unlabored, symmetrical chest expansion Eyes: PERRL Musculoskeletal: Flexion and extension of lumbar [spine] somewhat guarded secondary to pain, [antalgic gait noted] positive right leg raise with decreased sensation to light touch and decreased reflexes Neurological: Speech clear, no gross sensory deficit Additional findings Additional findings: FINAL REPORT CLINICAL HISTORY: RADICULOPATHY FINDINGS: LUMBAR SPINE AP and lateral views were obtained. There is no acute fracture or subluxation. There is thoracolumbar scoliosis convex to the left proximally 45 degrees. There are advanced hypertrophic changes of degenerative disc disease at T11-12, T12-1 and L1-2. There is disc space narrowing at L5-S1. Bilateral facet hypertrophy is seen in the mid and lower lumbar spine. IMPRESSION: Degenerative changes without acute bony abnormality. Reviewed, Interpreted and Dictated by Lionel Napoles MD Transcribed by Bhavani Harrell Authenticated and [facility] Assessment and Plan *Assessment and plan (1) Degenerative disc disease, lumbar: Status: Acute Category: Medical Code(s): M51.36 - Other intervertebral disc degeneration, lumbar region (2) Lumbar radiculopathy: Status: Acute Category: Medical Code(s): M54.16 - Radiculopathy, lumbar region (3) Right leg pain: Status: Acute Category: Medical Code(s): M79.604 - Pain in right leg (4) Ankle pain: Status: Acute Qualifiers: Chronicity: chronic Laterality: bilateral Qualified Code(s): M25.571 - Pain in right ankle and joints of right foot; M25.572 - Pain in left ankle and joints of left foot; G89.29 - Other chronic pain Category: Medical Code(s): M25.579 - Pain in unspecified ankle and joints of unspecified foot Plan Patient is experiencing significant pain throughout her low back and radiating symptoms down her entire right leg. Patient did have limited range of motion of her lumbar spine with a positive right leg raise and decreased sensation to light touch and decreased reflexes during today's exam. I have discussed with the patient that she may benefit from right transforaminal epidural steroid injection. Risk and benefits were discussed with the patient and she would like to proceed forward with this plan of care. I have also discussed with the patient that it may be beneficial to proceed forward with an MRI of her lumbar spine without contrast. Patient did recently have x-ray imaging however states that it has been years since she has had advanced imaging. Patient is agreeable to this plan of care. I will also order the patient a compounded cream. Patient does state that she is not on any current blood thinners. We will schedule the patient for a right transforaminal epidural steroid injection L4-L5 and L5-S1 under fluoroscopy. Patient has tried and failed conservative therapy such as oral medications, heat and ice, topicals, prior physical therapy and chiropractor therapy. Patient has been instructed to contact the clinic with any concerns before the next appointment. Dr. Pinedo has reviewed this note and agrees with this plan of care. This note was dictated using voice recognition software and make contain errors or omissions.
[2023-06-09 13:46] VITALS: BP 127/45; PULSE 67; RESP 18; O2SAT 96; BMI 28.3
== END 2023-06-09 23:59 ==
LOC: SC.PAIN 12:59
PROVIDERS: PCP Nurse Practitioner Family; Visit Provider Nurse Practitioner Family
DX: M79.604 Pain in right leg; M25.571 Pain in right ankle and joints of right foot; M25.572 Pain in left ankle and joints of left foot; G89.29 Other chronic pain; M51.16 Intervertebral disc disorders with radiculopathy, lumbar region
CPT/HCPCS: 99202; G0463

== ENCOUNTER 2023-06-28 15:15 | Outpatient (CLI) | payer MEDICARE, SELFPAY ==
--- NOTE | 2023-06-28 15:25 | MR_ITS ---
FINAL REPORT CLINICAL HISTORY: right sided LBP FINDINGS: Multiplanar MR imaging of the lumbar spine was performed without contrast. On the sagittal T2-weighted images, there is abnormal decreased signal throughout the lumbar discs. Lumbar scoliosis is convex to the right measuring 30 degrees. The vertebrae are of normal height. The vertebral alignment is normal. L1-2: Mild diffuse disc bulge is present. There is a left posterolateral disc protrusion with high-grade left neural foraminal narrowing. L2-3: Moderate diffuse disc bulge is present. There is a left posterolateral disc protrusion with asymmetric facet hypertrophy on the left. There is moderate to high-grade left neural foraminal narrowing. L3-4: There is diffuse disc bulge with asymmetric left facet hypertrophy. There is moderate to high-grade left neural foraminal narrowing. L4-5: Moderate diffuse disc bulge is present. There is [id number] right and moderate left neural foraminal narrowing. L5-S1: Diffuse disc bulge is present. There is a broad-based midline disc protrusion with moderate to high-grade bilateral neural foraminal narrowing. IMPRESSION: Neural foraminal compromise, most evident on the left at L1-2, L2-3, L3-4, and bilaterally at L5-S1. Reviewed, Interpreted and Dictated by Lionel Napoles MD Transcribed by Radha Barbosa Authenticated and [facility]
== END 2023-06-28 23:59 | disposition home or self-care (01) ==
LOC: RAD 15:17
PROVIDERS: PCP Internal Medicine Adolescent Medicine; Visit Provider Nurse Practitioner Family
DX: M54.50 Low back pain, unspecified (principal)
CPT/HCPCS: 72148; 76376

== ENCOUNTER → 2023-06-29 12:18 | Day surgery (SDC) | payer MEDICARE, SELFPAY ==
[2023-06-29 13:04] VITALS: BP 156/72; PULSE 64; RESP 18; TEMP 36.3; O2SAT 98; BMI 28.3
[2023-06-29] MEDS: LIDOCAINE 1% 5ML PF VIAL 5 ML (13:12)
[2023-06-29 13:18] VITALS: BP 142/55; PULSE 64; RESP 18; TEMP 36.6; O2SAT 99
--- NOTE | 2023-06-29 13:21 | EXP.PAIN.PRO ---
Procedure Date: 06/29/23 Time: 13:10 Anesthesiologist:: Randy Patel CRNA Complications:: None Pre-procedure Diagnosis:: Degenerative disc lumbar spine multilevels. Lumbar radiculopathy. Lumbar spondylosis. Multilevel lumbar facet arthropathy. Post-procedure Diagnosis:: Same. Indications for Procedure:: Patient is a pleasant 82-year-old female that comes her clinic today for a right L4-5, L5-S1 transforaminal epidural steroid injection. Patient reports low back pain she describes as constant, dull, aching. Patient also reports right hip and leg radicular symptoms. She rates her pain 7/10. Procedure Details:: Details of the procedure were explained to the patient. The patient was taken the procedure room placed in the prone position. The area of the lumbar spine was cleansed using chlorhexidine as a cleansing solution. At this time using fluoroscopy guidance markers were placed on the right lateral border of the L4 and L5 vertebral body. The skin and subcutaneous tissue was anesthetized using 1% lidocaine and 25-gauge needle. At this time using a 22-gauge 3-1/2 inch spinal needle the right upper one third of the L4-5 foramen was accessed. The same was done at the right L5-S1 foramen. Needle positions were confirmed and a lateral view using fluoroscopy and contrast dye. At this time 1 cc of 1% lidocaine +20 mg of Depo-Medrol was injected at each level after negative aspiration. [place] were removed. Band-Aid applied. Patient tolerated the procedure without difficulty. There are no complications. Plan and Disposition:: Patient was discharged without incident.
== END | disposition home or self-care (01) ==
PROVIDERS: PCP Internal Medicine Adolescent Medicine; Visit Provider Nurse Anesthetist, Certified Registered
DX: M51.16 Intervertebral disc disorders with radiculopathy, lumbar region (principal); M47.26 Other spondylosis with radiculopathy, lumbar region
CPT/HCPCS: 64483; 64484; J1010

== ENCOUNTER 2023-07-14 14:45 | Outpatient (POV) | payer MEDICARE, SELFPAY ==
[2023-07-14 15:13] VITALS: BP 111/45; PULSE 68; RESP 18; O2SAT 94; BMI 28.3
--- NOTE | 2023-07-14 15:19 | A.OFFVIS_ITS ---
[facility] Pain Management SOAP Note Subjective:: Patient is a pleasant 82-year-old female who presents today for follow-up of right transforaminal epidural steroid injection L4-L5 and L5-S1 on 06/29/2023. Today she rates her pain a 5 out of 10. Patient denies any new trauma or injury. She does state that she had at least 75% improvement lasting 2 weeks. She states that she does feel like it is starting to slowly wear off however while it was working she felt like she had increased overall function. She states that she immediately noticed a difference the first night. She states that she could sleep better and that the next day she had been able to go shopping at the grocery store and walk around. She states that this is the best injection she has had. She does state today her pain is still an aching, throbbing sensation with numbness and tingling going down into her right leg. Patient does state the pain interferes with her ability perform activities of daily living such as cooking and cleaning. Patient is interested in having a repeat injection in the future. Patient is currently managed with [place] and gabapentin from an outside provider. Patient does get compounded cream from our office and states that it works well. Her Zay has been reviewed and is appropriate. Review of Systems: General: No recent weight changes, no fever, no sleep disturbances Respiratory: No cough, no shortness of air, no recurring pulmonary infections Cardiovascular/peripheral vascular: No chest pain, no palpitations, no edema, no shortness of breath Gastrointestinal: No new onset incontinence, normal bowel movements reported Genitourinary: No new onset incontinence Musculoskeletal: Low back pain, right leg pain Psychiatric: [Normal mood/affect] Neurological: [Denies weakness in extremities], [denies balance issues] Objective:: Physical Exam: General: Alert and oriented x3, no acute distress, pleasant and cooperative Lungs: Respirations even and unlabored, symmetrical chest expansion Eyes: PERRL Musculoskeletal: Flexion and extension of lumbar [spine] somewhat guarded secondary to pain, [antalgic gait noted] positive right leg raise with decreased sensation to light touch and decreased reflexes Neurological: Speech clear, no gross sensory deficit Assessment:: Degenerative disc disease of lumbar spine with lumbar radiculopathy symptoms, lumbar spinal stenosis, chronic pain syndrome, right leg pain Plan:: Patient has had significant improvement following her right transforaminal epidural with at least 75% relief lasting about 2 weeks. Today she is going back towards her baseline and is experiencing more pain in her low back and right leg. Patient has limited range of motion of her lumbar spine and a positive right leg raise with decreased sensation to light touch and decreased reflexes. I have discussed with patient that she may benefit from a repeat transforaminal epidural injection. Risk and benefits were discussed with patient and she would like to proceed forward with this plan of care. Patient is not on any blood thinners. Patient has tried and failed conservative therapy and has continued at home exercising and stretching between injections. We will schedule her for her second right transforaminal epidural steroid injection L4- L5 and L5-S1 under fluoroscopy Patient has been instructed to contact the clinic with any concerns before the next appointment. Dr. Pinedo has reviewed this note and agrees with this plan of care. This note was dictated using voice recognition software and make contain errors or omissions. [facility] Disclaimer: The information contained in this section may have been updated after the patient was seen, as this information can be updated by other users. Medical History Abnormal cardiovascular stress test Abnormal EKG Aortic insufficiency Bilateral carotid artery stenosis CAD (coronary artery disease) Diaphoresis Dizziness Dizziness Dizziness Dizziness HHD (hypertensive heart disease) HLD (hyperlipidemia) HTN (hypertension) Hyponatremia Near syncope Unsteady gait Family History Other Unknown family medical history Social History Smoking Status: Never smoker second hand exposure: No alcohol intake: never substance use type: denies use current occupational status: retired Travel in the last 8 weeks: None housing: house current occupational exposures/hazards: No caffeine: Yes
== END 2023-07-14 23:59 | disposition home or self-care (01) ==
LOC: SC.PAIN 14:49
PROVIDERS: Visit Provider Nurse Practitioner Family
DX: M51.16 Intervertebral disc disorders with radiculopathy, lumbar region (principal); M48.061 Spinal stenosis, lumbar region without neurogenic claudication; G89.4 Chronic pain syndrome; M79.604 Pain in right leg
CPT/HCPCS: 99212; G0463

== ENCOUNTER → 2023-08-03 10:51 | Day surgery (SDC) | payer MEDICARE, SELFPAY ==
[2023-08-03 11:05] VITALS: BP 158/72; PULSE 79; RESP 18; TEMP 36.4; O2SAT 94; BMI 28.3
[2023-08-03] MEDS: LIDOCAINE 1% 5ML PF VIAL 5 ML (11:34)
[2023-08-03 11:35] VITALS: BP 164/73; PULSE 70; RESP 18; O2SAT 99
[2023-08-03 11:37] VITALS: BP 164/73; PULSE 70; RESP 18; O2SAT 99
--- NOTE | 2023-08-03 11:48 | P.PCN_ITS ---
Procedure Date: 08/03/23 Time: 11:30 Anesthesiologist:: Rnady Patel CRNA Complications:: None Pre-procedure Diagnosis:: Degenerative disc lumbar spine multilevels. Lumbar radiculopathy. Lumbar disc bulge L4-5, L5-S1. Post-procedure Diagnosis:: Same. Indications for Procedure:: Patient is a very pleasant 82-year-old female comes our clinic today for right L4-5, L5-S1 transforaminal epidural steroid injection. Patient reports low back pain as well as right hip and leg radicular symptoms to the foot. She rates her pain 7/10. Patient has responded very well to this injection at the same levels in the past. Procedure Details:: Details of the procedure were explained to the patient. The patient was taken the procedure room placed in the prone position. The area of the lumbar spine was cleansed using chlorhexidine as a cleansing solution. At this time using fluoroscopy guidance markers were placed on the right lateral border of the L4 and L5 vertebral body. The skin and subcutaneous tissue was anesthetized using 1% lidocaine and 25-gauge needle. At this time using a 22-gauge 3-1/2 inch spinal needle the right upper one third of the L4-5 foramen was accessed. The same was done at the right L5-S1 foramen. Needle positions were confirmed and a lateral view using fluoroscopy and contrast dye. At this time 1 cc of 1% lidocaine +20 mg of Depo-Medrol was injected at each level after negative aspiration. Edwards were removed. Band-Aid applied. Patient tolerated the procedure without difficulty. There are no complications. Plan and Disposition:: Patient was discharged without incident.
== END | disposition home or self-care (01) ==
PROVIDERS: PCP Internal Medicine Adolescent Medicine; Visit Provider Nurse Anesthetist, Certified Registered
DX: M51.16 Intervertebral disc disorders with radiculopathy, lumbar region (principal); M51.26 Other intervertebral disc displacement, lumbar region
CPT/HCPCS: 64483; 64484; J1010

== ENCOUNTER 2023-09-13 14:46 | Outpatient (CLI) | payer MEDICARE, SELFPAY ==
--- NOTE | 2023-09-13 14:51 | XR_ITS ---
FINAL REPORT CLINICAL HISTORY: Acute right foot pain COMPARISON: None FINDINGS: RIGHT FOOT 3 views of the right foot were obtained. There is no acute fracture or dislocation. 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 Hallux valgus deformity is noted. There are postoperative changes in the distal 1st metatarsal. There are mild and moderate degenerative changes. Calcaneal spurs are noted. Soft tissues are unremarkable. IMPRESSION: Postoperative and degenerative changes without acute bony abnormality. Reviewed, Interpreted and Dictated by Shiva Henley III, MD Transcribed by Annita Cardoza Authenticated and [facility]
--- NOTE | 2023-09-13 14:51 | XR_ITS ---
FINAL REPORT CLINICAL HISTORY: ACUTE RIGHT ANKLE PAIN COMPARISON: None FINDINGS: RIGHT ANKLE 3 views of the right ankle were obtained. There is no acute fracture or dislocation. The mortise is intact. There is mild degenerative change. Soft tissue swelling is noted. IMPRESSION: Soft tissue swelling without acute bony abnormality. Reviewed, Interpreted and Dictated by Shiva Henley III, MD Transcribed by Annita Cardoza Authenticated and [facility]
== END 2023-09-13 23:59 | disposition home or self-care (01) ==
LOC: RAD 14:47
PROVIDERS: PCP Nurse Practitioner Family; Visit Provider Physician Assistant
DX: M25.571 Pain in right ankle and joints of right foot (principal)
CPT/HCPCS: 73610; 73630

== ENCOUNTER 2023-09-19 12:07 | Emergency (ER) | payer MEDICARE, SELFPAY ==
[2023-09-19 12:46] VITALS: BP 184/75; PULSE 69; RESP 18; TEMP 36.6; O2SAT 98; BMI 28.7
--- NOTE | 2023-09-19 12:47 | ED_ITS ---
Discharge Plan Disposition Patient Disposition: Home, Self-Care Condition: Good Prescriptions Prescriptions: New fluconazole 150 mg tablet 150 mg PO ONCE Qty: 1 3RF phenazopyridine [Pyridium] 200 mg tablet 200 mg PO Q8H 2 Days Qty: 6 0RF ciprofloxacin HCl [Cipro] 500 mg tablet 500 mg PO BID 7 Days Qty: 14 0RF No Action trazodone 50 mg tablet 50 mg PO DAILY duloxetine 60 mg capsule,delayed release(DR/EC) 60 mg PO DAILY doxycycline hyclate 100 mg capsule 100 mg PO DAILY fluticasone propionate 50 mcg/actuation spray,suspension 2 spray NS DAILY diclofenac sodium 50 mg tablet,delayed release (DR/EC) 50 mg PO DIRECTED losartan 100 mg tablet See Rx Instructions .ROUTE .COMPLEX Qty: 90 3RF Dose Instruction: TAKE 1 TABLET BY MOUTH ONCE DAILY Rx Instructions: TAKE 1 TABLET BY MOUTH ONCE DAILY fluconazole 150 MG tablet 150 mg PO ONCE Qty: 1 0RF gabapentin 300 MG capsule 300 mg PO BID hydrocodone-acetaminophen 1 TAB tablet 1 tab PO Q4HP PRN (Reason: PAIN) ropinirole 0.25 mg tablet 0.25 mg PO HS PRN (Reason: Restless leg) rosuvastatin 20 MG tablet 20 mg PO DAILY aspirin 81 MG tablet,delayed release (DR/EC) 81 mg PO DAILY pantoprazole 20 MG tablet,delayed release (DR/EC) See Rx Instructions .Route .COMPLEX Rx Instructions: TAKE 1 TABLET BY MOUTH ONCE DAILY bisoprolol fumarate 5 MG tablet 5 mg PO QHS (DME) blood pressure monitor 1 EACH kit See Rx Instructions .Route .MEDSUPPLY Rx Instructions: As directed Referrals Follow up/Referrals: Samuel Braun MD [Primary Care Provider] - See instructions Activity Restrictions/Add. Instructions Additional Instructions/Restrictions: Drink plenty of fluids. Take tylenol or ibuprofen for pain or fever. Take the medications as directed. Follow up with your regular doctor. GO TO THE ER FOR ANY WORSENING SYMPTOMS The pyridium will make your urine turn orange, this is an expected side effect. It will stain your clothes if it comes into contact with them. We will culture the urine. That will tell what bacteria is causing your infection and which antibiotics will treat it best. Sometimes the first antibiotic we prescribe turns out to not work against different bacteria. So, make sure you follow up within 3 days if you are not getting better. Clinical Impressions Clinical Impression: Urinary tract infection Instructions Patient Instructions: DI for Urinary Tract Infection (UTI), Phenazopyridine, Ciprofloxacin, Fluconazole Discharge ED Provider: Jose Magallanes [facility] General Stated complaint: pain and frequent urination Time Seen by Provider: 09/19/23 12:46 History of Present Illness Provider Complaint: She states that for the past 3 days she has had worsening dysuria and urinary frequency. Related Data Home Medications Medication Instructions Recorded Confirmed gabapentin 300 mg capsule 300 mg PO BID Pain 09/07/17 09/19/23 hydrocodone 5 mg-acetaminophen 325 1 tab PO Q4HP PRN PAIN 09/07/17 09/19/23 mg tablet ropinirole 0.25 mg tablet 0.25 mg PO HS PRN Restless leg 05/18/19 07/27/23 aspirin 81 mg tablet,delayed 81 mg PO DAILY stents 07/09/20 07/27/23 release rosuvastatin 20 mg tablet 20 mg PO DAILY Cholesterol 07/09/20 07/27/23 bisoprolol fumarate 5 mg tablet 5 mg PO QHS High blood pressure 01/25/21 07/27/23 blood pressure monitor 01/25/21 07/14/23 pantoprazole 20 mg tablet,delayed See Rx Instructions .Route 01/25/21 07/27/23 release .COMPLEX GERD doxycycline hyclate 100 mg capsule 100 mg PO DAILY 10/10/21 07/27/23 duloxetine 60 mg capsule,delayed 60 mg PO DAILY Depression 10/10/21 09/19/23 release fluticasone propionate 50 2 spray intranasal DAILY 10/10/21 07/27/23 mcg/actuation nasal spray,suspension diclofenac sodium 50 mg 50 mg PO DIRECTED Pain 02/16/23 07/27/23 tablet,delayed release trazodone 50 mg tablet 50 mg PO DAILY 07/27/23 09/19/23 Previous Rx's Medication Instructions Recorded fluconazole 150 mg tablet 150 mg PO ONCE #1 tab 09/16/21 losartan 100 mg tablet See Rx Instructions .Route 09/14/22 .COMPLEX #90 tabs ciprofloxacin HCl 500 mg tablet 500 mg PO BID 7 days #14 tabs 09/19/23 (Cipro) fluconazole 150 mg tablet 150 mg PO ONCE 1 dose #1 tab 09/19/23 phenazopyridine 200 mg tablet 200 mg PO Q8H 2 days #6 tabs 09/19/23 (Pyridium) Allergies Allergy/AdvReac Type Severity Reaction Status Date / Time Sulfa (Sulfonamide Allergy Verified 07/27/23 10:33 Antibiotics) atorvastatin [From Lipitor] AdvReac Mild myalgia Verified 07/27/23 10:33 [facility] Disclaimer: The information contained in this section may have been updated after the patient was seen, as this information can be updated by other users. Medical History Unsteady gait Dizziness Diaphoresis Dizziness Dizziness Hyponatremia Dizziness Abnormal EKG Near syncope Abnormal cardiovascular stress test Bilateral carotid artery stenosis HTN (hypertension) Aortic insufficiency HLD (hyperlipidemia) HHD (hypertensive heart disease) CAD (coronary artery disease) Family History Other Unknown family medical history Social History Smoking Status: Never smoker second hand exposure: No alcohol intake: never substance use type: denies use current occupational status: retired Travel in the last 8 weeks: None housing: house current occupational exposures/hazards: No caffeine: Yes ROS Obtained: Yes All systems reviewed & no additional complaints except as documented Constitutional Constitutional: Reports system reviewed and no additional complaints, except as documented, Denies chills and Denies fever(s) Eyes Eyes: Denies eye discharge ENT Ears, Nose, Mouth, and Throat: Denies dysphagia, Denies sore throat and Denies throat swelling Cardiovascular Cardiovascular: Denies chest pain and Denies dyspnea Respiratory Respiratory: Denies chest congestion, Denies cough and Denies dyspnea Gastrointestinal Gastrointestingal: Denies abdominal pain, constipation, diarrhea, dysphagia, nausea or vomiting Genitourinary Female Genitourinary: Reports as per HPI, Reports dysuria, Reports urinary frequency, Denies urinary incontinence, Reports urinary hesitancy and Reports urinary urgency Musculoskeletal Musculoskeletal: Denies arthralgias and Reports back pain Integumentary/Breasts Skin/Breast: Denies rash Neurologic Neurologic: Denies paresthesias Allergic/Immunologic Allergic/Immunologic: Denies throat swelling Physical Exam General General appearance: alert and in no apparent distress Head Head exam: atraumatic and normocephalic Eye Eye exam: Present normal appearance, PERRL and EOMI ENT ENT exam: Present normal exam, mucous membranes moist, TM's normal bilaterally and normal external ear exam Neck Neck exam: Present normal inspection, full ROM and trachea midline; Absent tenderness, meningismus or lymphadenopathy Chest Chest inspection: Present normal inspection and symmetric chest wall rise; Absent tenderness Respiratory Respiratory exam: Present normal lung sounds bilaterally; Absent respiratory distress, wheezes or stridor Cardiovascular Cardiovascular exam: Present regular rate, normal rhythm and normal heart sounds Abdominal Exam Abdominal exam: Present soft and normal bowel sounds; Absent distention, tenderness, guarding, rebound, rigidity, incision, psoas sign, obturator sign, heel tap sign, Marroquin's sign, Rovsing's sign or tenderness at McBurney's Point Extremities Exam Extremities exam: Present normal inspection, full ROM and normal capillary refill; Absent tenderness, edema, joint swelling, calf tenderness or cyanosis Back Exam Back exam: Present normal inspection and full ROM; Absent tenderness, CVA tenderness (R) or CVA tenderness (L) Neurological Exam Neurological exam: Present alert, oriented X3 and normal gait Psychiatric Psychiatric exam: Present normal affect and normal mood Skin Skin exam: Present warm, dry, intact and normal color Lymphatic Lymphatic Findings: no adenopathy Medical Decision Making Medical Records Medical records reviewed: No I reviewed the patient's medical records. Zay Eduardo Pt receiving controlled substance: No Lab Data Lab results reviewed: Yes I reviewed the patient's lab results.
[2023-09-19 12:48] LABS: Apearance,Urine Clear (Clear); Color,Urine Yellow (Yellow)
[2023-09-19 12:49] LABS: Bilirubin,Urine Negative (Negative); Blood, Urine Trace (Negative); Glucose,Urine (UA) Negative (Negative); Ketones,Urine Negative (Negative); Protein,Urine Negative (Negative); UTC Leukocyte Esterase,Urine 3+ (Negative); UTC Nitrate,Urine Positive (Negative); Urobilinogen,Urine 0.2 EU/dl (0.2)
[2023-09-19 13:23] VITALS: BP 184/75; PULSE 69; RESP 18; TEMP 36.6; O2SAT 98
--- NOTE | 2023-09-21 10:05 | PC.NURSE ---
REVIEWED URINE CULTURE WITH Lacy RUBIO APRN, NO CHANGE NEEDED
== END 2023-09-19 13:24 | disposition home or self-care (01) ==
PROVIDERS: Emergency Provider Nurse Practitioner Family; PCP Internal Medicine Adolescent Medicine
DX: N39.0 Urinary tract infection, site not specified (principal); B96.4 Proteus (mirabilis) (morganii) as the cause of diseases classified elsewhere; R30.0 Dysuria; R35.0 Frequency of micturition
CPT/HCPCS: 81003; 87086; 87088; 87186; 99212; 99214; G0463

== ENCOUNTER 2023-09-29 12:59 | Outpatient (POV) | payer MEDICARE, SELFPAY ==
[2023-09-29 13:17] VITALS: BP 122/50; PULSE 69; RESP 16; O2SAT 96; BMI 29.2
--- NOTE | 2023-09-29 13:28 | A.OFFVIS_ITS ---
[facility] Disclaimer: The information contained in this section may have been updated after the patient was seen, as this information can be updated by other users. Medical History Unsteady gait Dizziness Diaphoresis Dizziness Dizziness Hyponatremia Dizziness Abnormal EKG Near syncope Abnormal cardiovascular stress test Bilateral carotid artery stenosis HTN (hypertension) Aortic insufficiency HLD (hyperlipidemia) HHD (hypertensive heart disease) CAD (coronary artery disease) Family History Other Unknown family medical history Social History Smoking Status: Never smoker second hand exposure: No alcohol intake: never substance use type: denies use current occupational status: retired Travel in the last 8 weeks: None housing: house current occupational exposures/hazards: No caffeine: Yes PM Subjective & Objective Subjective Subjective:: Patient is a pleasant 82-year-old female who presents today for follow-up right transforaminal epidural steroid injection L4-5 and L5-S1 on 08/03/2023. Today she rates her pain a 8 out of 10. Patient states that she did get at least 70% relief following this injection and feels like it is really helped the last 2 months. She does state that she is starting to feel a little bit more pain and that it still is going down her right leg. Patient states while this injection was working well it did decrease the severity and it was not as constant. Patient states she was able to do more around her home. Her Zay has been reviewed and is appropriate. Patient is still using her compounded cream and is prescribed [place] and gabapentin from an outside provider. Review of Systems: General: No recent weight changes, no fever, no sleep disturbances Respiratory: No cough, no shortness of air, no recurring pulmonary infections Cardiovascular/peripheral vascular: No chest pain, no palpitations, no edema, no shortness of breath Gastrointestinal: No new onset incontinence, normal bowel movements reported Genitourinary: No new onset incontinence Musculoskeletal: Low back pain Psychiatric: [Normal mood/affect] Neurological: [Denies weakness in extremities], [denies balance issues] Pain at rest (0-10 scale): 8 Objective Objective:: Physical Exam: General: Alert and oriented x3, no acute distress, pleasant and cooperative Lungs: Respirations even and unlabored, symmetrical chest expansion Eyes: PERRL Musculoskeletal: Flexion and extension of lumbar [spine] somewhat guarded secondary to pain, [antalgic gait noted] Neurological: Speech clear, no gross sensory deficit Has patient had previous pain injection?: Yes Percent improvement in pain since last injection: 70% Conservative treatment options previously tried: Home exercise plan Length of treatment: Longer than 6 weeks and Prescription medications Length of treatment: Longer than 6 weeks Meds Home Medications and Allergies Home Medications ?Medication ?Instructions ?Recorded ?Confirmed ?Type gabapentin 300 mg capsule 300 mg PO BID Pain 09/07/17 09/29/23 History hydrocodone 5 mg-acetaminophen 325 1 tab PO Q4HP PRN PAIN 09/07/17 09/29/23 History mg tablet ropinirole 0.25 mg tablet 0.25 mg PO HS PRN Restless leg 05/18/19 09/29/23 History aspirin 81 mg tablet,delayed 81 mg PO DAILY stents 07/09/20 09/29/23 History release rosuvastatin 20 mg tablet 20 mg PO DAILY Cholesterol 07/09/20 09/29/23 History bisoprolol fumarate 5 mg tablet 5 mg PO QHS High blood pressure 01/25/21 09/29/23 History blood pressure monitor 01/25/21 09/29/23 History pantoprazole 20 mg tablet,delayed See Rx Instructions .Route 01/25/21 09/29/23 History release .COMPLEX GERD fluconazole 150 mg tablet 150 mg PO ONCE #1 tab 09/16/21 09/29/23 Rx doxycycline hyclate 100 mg capsule 100 mg PO DAILY 10/10/21 09/29/23 History duloxetine 60 mg capsule,delayed 60 mg PO DAILY Depression 10/10/21 09/29/23 History release fluticasone propionate 50 2 spray intranasal DAILY 10/10/21 09/29/23 History mcg/actuation nasal spray,suspension losartan 100 mg tablet See Rx Instructions .Route 09/14/22 09/29/23 Rx .COMPLEX #90 tabs diclofenac sodium 50 mg 50 mg PO DIRECTED Pain 02/16/23 09/29/23 History tablet,delayed release trazodone 50 mg tablet 50 mg PO DAILY 07/27/23 09/29/23 History ciprofloxacin HCl 500 mg tablet 500 mg PO BID 7 days #14 tabs 09/19/23 09/29/23 Rx (Cipro) fluconazole 150 mg tablet 150 mg PO ONCE 1 dose #1 tab 09/19/23 09/29/23 Rx phenazopyridine 200 mg tablet 200 mg PO Q8H 2 days #6 tabs 09/19/23 09/29/23 Rx (Pyridium) New Prescriptions to Start Prescriptions: Allergies Allergy/AdvReac Type Severity Reaction Status Date / Time Sulfa (Sulfonamide Allergy Verified 07/27/23 10:33 Antibiotics) atorvastatin [From Lipitor] AdvReac Mild myalgia Verified 07/27/23 10:33 Assessment and Plan *Assessment and plan (1) Lumbar radiculopathy: Status: Acute Category: Medical Code(s): M54.16 - Radiculopathy, lumbar region (2) Degenerative disc disease, lumbar: Status: Acute Category: Medical Code(s): M51.36 - Other intervertebral disc degeneration, lumbar region (3) Right leg pain: Status: Acute Category: Medical Code(s): M79.604 - Pain in right leg Plan Patient did have significant relief following her injection and is starting to experience more pain. Will see how she does over the next 2 weeks and reevaluate at her upcoming appointment. Patient agrees with this plan of care. Patient will return to clinic in 2 weeks for reevaluation of symptoms and plan of care. Patient has been instructed to contact the clinic with any concerns before the next appointment. Dr. Pinedo has reviewed this note and agrees with this plan of care. This note was dictated using voice recognition software and make contain errors or omissions. All injections are used with Lidocaine or Bupivacaine and Depo Medrol.
== END 2023-09-29 23:59 | disposition home or self-care (01) ==
PROVIDERS: PCP Internal Medicine Adolescent Medicine; Visit Provider Nurse Practitioner Family
DX: M54.16 Radiculopathy, lumbar region (principal); M51.36 Other intervertebral disc degeneration, lumbar region; M79.604 Pain in right leg
CPT/HCPCS: 99212; G0463

== ENCOUNTER 2023-10-20 13:45 | Outpatient (POV) | payer MEDICARE, SELFPAY ==
[2023-10-20 14:02] VITALS: BP 171/61; PULSE 68; RESP 18; O2SAT 96; BMI 28.3
--- NOTE | 2023-10-20 14:21 | A.OFFVIS_ITS ---
[facility] Disclaimer: The information contained in this section may have been updated after the patient was seen, as this information can be updated by other users. Medical History Unsteady gait Dizziness Diaphoresis Dizziness Dizziness Hyponatremia Dizziness Abnormal EKG Near syncope Abnormal cardiovascular stress test Bilateral carotid artery stenosis HTN (hypertension) Aortic insufficiency HLD (hyperlipidemia) HHD (hypertensive heart disease) CAD (coronary artery disease) Family History Other Unknown family medical history Social History Smoking Status: Never smoker second hand exposure: No alcohol intake: never substance use type: denies use current occupational status: retired Travel in the last 8 weeks: None housing: house current occupational exposures/hazards: No caffeine: Yes PM Subjective & Objective Subjective Subjective:: Patient is a pleasant 82-year-old female who presents today for follow-up. Today she rates her pain a 9 out of 10. Patient denies any new trauma or injury. She does state that she is having worsening pain in her low back that radiates down her entire right leg to her toes. She does describe it as an aching, throbbing sensation with numbness and tingling. She does state the pain interferes with her ability perform activities of daily living such as cooking and cleaning. Patient has tried and failed conservative therapy including oral medication, heat and ice, topicals, continued at home stretching exercise for longer than 6 weeks. Patient did previously have a right transforaminal epidural steroid injection back in July that provided 70% relief lasting approximately 2 months or more. Patient does state that it gave her the most function that she has had for some time and she is interested in repeating injection therapy. Patient is prescribed compounded cream from our office and [place] and gabapentin from an outside provider. Her Azy has been reviewed and is appropriate. Review of Systems: General: No recent weight changes, no fever, no sleep disturbances Respiratory: No cough, no shortness of air, no recurring pulmonary infections Cardiovascular/peripheral vascular: No chest pain, no palpitations, no edema, no shortness of breath Gastrointestinal: No new onset incontinence, normal bowel movements reported Genitourinary: No new onset incontinence Musculoskeletal: Low back pain, right leg pain Psychiatric: [Normal mood/affect] Neurological: [Denies weakness in extremities], [denies balance issues] Pain at rest (0-10 scale): 9 Objective Objective:: Physical Exam: General: Alert and oriented x3, no acute distress, pleasant and cooperative Lungs: Respirations even and unlabored, symmetrical chest expansion Eyes: PERRL Musculoskeletal: Flexion and extension of lumbar [spine] somewhat guarded secondary to pain, [antalgic gait noted] positive right leg raise with decreased sensation to light touch and decreased reflexes Neurological: Speech clear, no gross sensory deficit Has patient had previous pain injection?: No Conservative treatment options previously tried: Home exercise plan Length of treatment: Longer than 6 weeks Meds Home Medications and Allergies Home Medications ?Medication ?Instructions ?Recorded ?Confirmed ?Type gabapentin 300 mg capsule 300 mg PO BID Pain 09/07/17 10/20/23 History hydrocodone 5 mg-acetaminophen 325 1 tab PO Q4HP PRN PAIN 09/07/17 10/20/23 History mg tablet ropinirole 0.25 mg tablet 0.25 mg PO HS PRN Restless leg 05/18/19 10/20/23 History aspirin 81 mg tablet,delayed 81 mg PO DAILY stents 07/09/20 10/20/23 History release rosuvastatin 20 mg tablet 20 mg PO DAILY Cholesterol 07/09/20 10/20/23 History bisoprolol fumarate 5 mg tablet 5 mg PO QHS High blood pressure 01/25/21 10/20/23 History blood pressure monitor 01/25/21 10/20/23 History pantoprazole 20 mg tablet,delayed See Rx Instructions .Route 01/25/21 10/20/23 History release .COMPLEX GERD fluconazole 150 mg tablet 150 mg PO ONCE #1 tab 09/16/21 10/20/23 Rx duloxetine 60 mg capsule,delayed 60 mg PO DAILY Depression 10/10/21 10/20/23 History release fluticasone propionate 50 2 spray intranasal DAILY 10/10/21 10/20/23 History mcg/actuation nasal spray,suspension diclofenac sodium 50 mg 50 mg PO DIRECTED Pain 02/16/23 10/20/23 History tablet,delayed release trazodone 50 mg tablet 50 mg PO DAILY 07/27/23 10/20/23 History fluconazole 150 mg tablet 150 mg PO ONCE 1 dose #1 tab 09/19/23 10/20/23 Rx losartan 100 mg tablet See Rx Instructions .Route 10/04/23 10/20/23 Rx .COMPLEX #90 tabs New Prescriptions to Start Prescriptions: Allergies Allergy/AdvReac Type Severity Reaction Status Date / Time Sulfa (Sulfonamide Allergy Verified 07/27/23 10:33 Antibiotics) atorvastatin [From Lipitor] AdvReac Mild myalgia Verified 07/27/23 10:33 Assessment and Plan *Assessment and plan (1) Lumbar radiculopathy: Status: Acute Category: Medical Code(s): M54.16 - Radiculopathy, lumbar region (2) Right leg pain: Status: Acute Category: Medical Code(s): M79.604 - Pain in right leg (3) Degenerative disc disease, lumbar: Status: Acute Category: Medical Code(s): M51.36 - Other intervertebral disc degeneration, lumbar region Plan Patient is experiencing worsening pain in her low back with radiating numbness and tingling going down into her entire right extremity. Patient did have a positive right leg raise with decreased sensation light touch and decreased reflexes. I did discuss with the patient regarding possible repeat right transforaminal epidural steroid injection. Risk and benefits were discussed with patient and she would like to proceed forward with this plan of care. Patient is not on any blood thinners other than an 81 mg aspirin. Patient has had this injection in the past that did provide 70% relief lasting longer than 2 months. We will submit for repeat right transforaminal epidural steroid injection L4-L5 and L5-S1 under fluoroscopy. Patient has continued to do at home stretching exercise for longer than 6 weeks with no additional relief. Patient has been instructed to contact the clinic with any concerns before the next appointment. Dr. Pinedo has reviewed this note and agrees with this plan of care. This note was dictated using voice recognition software and make contain errors or omissions. All injections are used with Lidocaine or Bupivacaine and Depo Medrol.
== END 2023-10-20 23:59 | disposition home or self-care (01) ==
LOC: SC.PAIN 13:46
PROVIDERS: Visit Provider Nurse Practitioner Family
DX: M79.604 Pain in right leg; M51.16 Intervertebral disc disorders with radiculopathy, lumbar region; I25.10 Atherosclerotic heart disease of native coronary artery without angina pectoris; I10 Essential (primary) hypertension; Z95.5 Presence of coronary angioplasty implant and graft; Z73.89 Other problems related to life management difficulty; Z79.899 Other long term (current) drug therapy
CPT/HCPCS: 99212; G0463

== ENCOUNTER 2024-04-11 12:23 | Outpatient (CLI) | payer MEDICARE, SELFPAY ==
--- NOTE | 2024-04-11 12:47 | MM_ITS ---
PROCEDURE INFORMATION: Exam: MG Bilateral Screening 3D Mammography Exam date and time: 04/11/2024 12:49 PM Age: 83 years old Clinical indication: Screening examination. Her sister had breast cancer in her 80s. TECHNIQUE: Imaging protocol: Bilateral Screening tomosynthesis and 2D mammography including computer-aided detection (CAD) when performed. COMPARISON: 1. MG MM DIG SCREENING MAMM BI W/CAD 01/07/2023 9:41 AM 2. MG MM DIG SCREENING MAMM BI W/CAD 12/09/2021 10:45 AM 3. MG MM DIG SCREENING MAMM BI W/CAD 01/25/2020 10:54 AM 4. MG MM DIG SCREENING MAMM BI W/CAD 01/16/2019 11:12 AM FINDINGS: MAMMOGRAPHY: Breast composition: There are scattered areas of fibroglandular density. Mass: No suspicious mass. Architectural distortion: None. Calcifications: No suspicious calcifications. Asymmetric density: None. Skin thickening: None. Axillary adenopathy: None. IMPRESSION: No mammographic evidence of malignancy. Annual screening is recommended unless otherwise clinically indicated. ASSESSMENT: BI-RADS Category 1: Negative.
[2024-04-11 13:35] LABS: Basophils % 0.8 % (0.1-2.0); Eosinophils # 0.2 K/mm3 (0.0-0.4); Eosinophils % 3.4 % (0.1-12.0); Hematocrit 39.6 % (37.0-47.0); Hemoglobin 12.7 g/dL (12.2-16.2); Lymphocytes # 1.5 K/mm3 (0.7-4.5); Mean Corpuscular HGB Conc 32.1 g/dL (31.8-35.4); Mean Corpuscular Hemoglobin 30.6 pg (27.0-31.2); Mean Corpuscular Volume 95.4 fl (81-99); Mean Platelet Volume 9.2 fl (7.4-10.4); Monocytes # 0.5 K/mm3 (0.1-1.0); Monocytes % 10.3 % (1.7-9.3); Neutrophils % 57.3 % (37.0-80.0); Platelet Count 268 K/mm3 (142-424); Red Blood Count 4.15 M/mm3 (4.20-5.40); Red Cell Distribution Width 12.8 % (11.5-17.5); White Blood Count 5.3 K/mm3 (4.8-10.8)
[2024-04-11 13:47] LABS: Barbiturates Screen,Urine Negative ng/ml (<200)
[2024-04-11 13:48] LABS: Amphetamine/Metha Screen,Urine Negative ng/ml (<1000); Benzodiazepines Screen,Urine Negative ng/ml (<200)
[2024-04-11 13:49] LABS: Cannabinoid Screen,Urine Negative ng/ml (<50)
[2024-04-11 13:50] LABS: Cocaine Screen,Urine Negative ng/ml (<300); Methadone Screen,Urine Negative ng/ml (<300)
[2024-04-11 13:51] LABS: Opiate Screen,Urine Positive ng/ml (<300); Phencyclidine Screen,Urine Negative ng/ml (<25)
[2024-04-11 13:56] LABS: Chloride 99 mmol/L (98-107)
[2024-04-11 13:57] LABS: Albumin Level 4.2 g/dl (3.5-5.0); Potassium 4.6 mmoL/L (3.5-5.1); Sodium 135 mmol/L (136-145)
[2024-04-11 14:00] LABS: Alanine Aminotransferase 18 U/L (12-78); Albumin/Globulin Ratio 1.9 (1.1-1.8); Alkaline Phosphatase 61 U/L (38-126); Anion Gap 13.6 mEq/L (5-15); Aspartate Amino Transferase 36 U/L (14-36); Bilirubin,Total 0.3 mg/dl (0.2-1.3); Blood Urea Nitrogen 19 mg/dl (7-17); Calcium 9.6 mg/dl (8.4-10.2); Carbon Dioxide 27 mmol/L (22.0-30.0); Cholesterol 82 mg/dl (140-200); Estimated Glomerular Filt Rate 96 ml/min (>60); GFR (African American) 116 ML/MIN (>60); Globulin 2.2 g/dL (1.3-3.2); Glucose 92 mg/dl (74-100); HDL Cholesterol 16 mg/dl (40-60); Total Protein,Serum 6.4 g/dl (6.3-8.2); Triglycerides 228 mg/dl (30-150); VLDL Cholesterol 46 mg/dL (0-40)
[2024-04-11 14:01] LABS: Chol/HDL Ratio 5.1 (1-3.5)
[2024-04-11 14:11] LABS: Direct LDL Cholesterol 32.79 mg/dL (100-129)
[2024-04-11 14:31] LABS: Thyroid Stimulating Hormone 1.39 uIU/mL (0.465-4.68)
[2024-04-11 15:10] LABS: Vitamin B12 669 pg/mL (239-931)
== END 2024-04-11 23:59 | disposition home or self-care (01) ==
LOC: RAD 12:28
PROVIDERS: PCP Nurse Practitioner Family; Visit Provider Nurse Practitioner Family
DX: Z12.31 Encounter for screening mammogram for malignant neoplasm of breast (principal); I10 Essential (primary) hypertension; I25.10 Atherosclerotic heart disease of native coronary artery without angina pectoris; E53.8 Deficiency of other specified B group vitamins; E04.1 Nontoxic single thyroid nodule; Z79.891 Long term (current) use of opiate analgesic
CPT/HCPCS: 36415; 77063; 77067; 80053; 80061; 80307; 82607; 84443; 85025

== ENCOUNTER 2024-10-23 14:53 | Outpatient (RCR) | payer MEDICARE, SELFPAY ==
--- NOTE | 2024-10-24 10:07 | HMH.PTOPEV ---
PT Outpatient Evaluation Rehab PT Outpatient Evaluation Start: 10/23/24 14:57 Freq: Status: Active Protocol: Document 10/23/24 14:57 KATHY (Rec: 10/23/24 15:53 KATHY [id number]) E-signed By Nimo Fernandes, PT Outpatient Therapy Subjective History Subjective History This is an initial physical therapy evaluation for 83 y /o female, January Pizano, who presents to PT with referral for poor balance . Pt reports she believes she has balance impairments d/t her back problems. Pt reports difficulty negotiating stair steps, stepping over objects, and walking on uneven surfaces. Pt denies any recent falls but does report a hx of falls prior to her TKA. Pt with a goal to move more with PT. Pt reports she has started walking more at home. Pt denies neuropathy symptoms. Pt currently uses a SPC for community ambulation. Pt does not usually use AD for household ambulation. PMH: TKA, toe amputation, back surgery Prior Functional None Limitations Current Functional Lifting,Dressing,Driving,Standing,Squatting,Recreation Limitations Activity,Walking,Stairs,Balance Lumbopelvic Eval Assistive device Assistive Devices Straight Cane Gait Observation General Gait Pattern Antalgic Gait,Wide Based Gait Observation Manual Muscle Test Bilateral Knee Extension 4- Good- Strength Grade Knee Flexion 4- Good- Strength Grade Hip Flexion Strength 4- Good- Grade Hip Abduction 4- Good- Strength Grade Hip Adduction 4- Good- Strength Grade Balance Eval Timed Up and Go Test 1. Is the Timed Up yes and Go test result > or = to 12 seconds? Rhomberg Feet Together/Eyes pass open/Stable Surface Feet Together/Eyes fail Closed/Stable Surface Feet Together/Eyes fail open/Unstable Surface Feet Together/Eyes fail Closed/Unstable Surface Dynamic Gait Index Test Protocol Gait Level Surface Moderate Impairement Query Text: Instructions: Walk at your normal speed from here to the next dexter (20'). Grading: Dexter the lowest category that applies. Change in Gait Speed Moderate Impairment Query Text: Instructions: Begin walking at your normal pace (for 5') , when I tell you go , walk as fast as you can (for 5'). When I tell you slow , walk as slowly as you can ( for 5'). Grading: Dexter the lowest category that applies. Gait with Horizontal Moderate Impairment Head Turns Query Text: Instructions: Begin walking at your normal pace. When I tell you to look right , keep walking straight, but turn you head to the right. Keep looking to the right unit I tell you look left , then keep walking straight and turn your head to the left. Keep your head to the left until I tell you look straight , then keep walking straight, but return you head to the center. Grading: Dexter the lowest category that applies. Gait with Vertical Moderate Impairment Head Turns Query Text: Instructions: Begin walking at your normal pace. When I tell you to look up , keep walking staight, but tip your head up. Keep looking up until I tell you to look down , then keep walking straight and tip your head down. Keep your head down until I tell you look straight , then keep walking straight, but return your head to the center. Grading: Dexter the lowest category that applies. Gait and Pivot Turn Moderate Impairment Query Text: Instructions: Begin walking at your normal pace. When I tell you turn and stop , turn as quickly as you can to face the opposite direction and stop. Grading: Dexter the lowest category that applies. Step Over Obstacle Moderate Impairment Query Text: Instructions: Begin walking at your normal speed. When you come to the shoebox, step over it, not around it and keep walking. Grading: Dexter the lowest category that applies. Step Around Moderate Impairment Obstacles Query Text: Instructions: Begin walking at normal speed. When you come to the first cone (about 6' away) , walk around the right side of it. When you come to the second cone (6' past first cone), walk around it to the left. Grading: Dexter the lowest category that applies. Steps Moderate Impairment Query Text: Instructions: Walk up these stairs as you would at home. At the top, turn around and walk down . Grading: Dexter the lowest category that applies. Scoring Dynamic Gait Index 8 Score Miscellaneous Dx PT Eval Objective Objective TU seconds with SPC 5 x STS: 21 seconds with UE use DGI: 8 with SPC (high fall risk) Romberg: Fail uneven sections. Outpatient Therapy Assessment Impairments Problems/ Impaired Strength,Impaired Endurance,Impaired Transfers Impairmments ,Impaired Gait Pattern,Impaired Walking,Impaired Standing,Impaired Stair Climbing,Impaired Incline Stepping,Impaired Stepping on Uneven Surface,Impaired Squatting,Impaired Recreational Activities,Impaired DGI Score,Impaired TUG Time Prognosis Rehab Potential Good Comment Pt presents with impaired gait, dynamic and static standing balance, and strength. Pt would benefit from skilled OP PT to address deficits and improve safety with mobility. *PT provided pt with HEP consisting of core exercises, hip strengthening therex, and tandem stance intervention. Pt verbalized understanding to education on HEP safety. PT Patient Goals PT Patient Goals PT Short Term In 4 weeks, pt will: Patient Goals 1) Verbalize at least 80% compliance with HEP 2) Report she feels at least 40% improved since initial evaluation 3) Stand on uneven surface with feet together and minimal-no sway to improve functional balance. 4) Progress through higher level balance interventions with at most Min A. 5) Perform TUG in 13 seconds or less with LRAD. 6) Improve DGI by 1 point to improve safety with mobility. PT [facility] Patient In 8 weeks, pt will: Goals 1) Verbalize adherence compliance with HEP 2) Report she feels at least 85% improved since initial evaluation 3) Pass all romberg sections 4) Progress through higher level balance interventions with at most Min A. 5) Perform TUG in 12 seconds or less with LRAD. 6) Improve DGI to score of 15 to improve safety with mobility. Outpatient Therapy Plan of Care Treatment Plan May Include Therapeutic Exercise Yes Including Home Exercise Program Manual Therapy Yes Techniques Neuromuscular Re- Yes education Therapeutic Yes Activities to Return to Previous Functional/Work Level Gait Training Yes ADL/Self Care Yes Education Group Therapy for Yes Medicare Eval/Re-Eval Yes Frequency Times per week 2x Duration Number of Weeks 6-8 weeks Addendums This patient is a No candidate for social or vocational rehab ? Patient/Guardian Yes verbally acknowledges understanding of treatment program and consents to further treatment? Patient/Guardian Yes verbally acknowledges understanding of diagnosis, prognosis and goals for treatment? Eval Complexity PT Charges 79489 - Moderate Complexity Shoulder/Elbow Eval Shoulder Objective Measurements Elbow Objective Measurements PHYSICIAN CERTIFICATION: I certify the specified therapy services for January Pizano are required, authorized, and reviewed every 30 days.
== END 2024-10-23 23:59 | disposition home or self-care (01) ==
LOC: PT 14:53
PROVIDERS: Visit Provider Nurse Practitioner Family
DX: R26.89 Other abnormalities of gait and mobility (principal)
CPT/HCPCS: 97162

== ENCOUNTER 2025-01-17 12:43 | Outpatient (CLI) | payer MEDICARE, SELFPAY ==
--- OUTSIDE RECORDS SUMMARY | 2024-03-16 09:15 | XMS_ITS ---
Author Organization [facility] Address [address] [place] [address] Care Team Providers Care Remote Recruiter Name Role Phone Samuel Braun Primary Care Provider [phone] Susan English Unavailable [phone] Samuel Braun Unavailable Unavailable REASON FOR VISIT med check, Needs a CSA Encounters Encounter Location Date Provider Diagnosis [facility] [address] [place] [address] 03/16/2024 Susan English Plan Of Treatment No Information Progress Notes * January PUGA EDOB:1940 (84 yo F)Acc No.[id number]:03/16/2024 Progress Notes Patient: January DOTSON Provider: JAMEE Pinedo :1940 A ge:83 Y S ex:Female Date:03/16/2024 Address:[address], [place], [id number] Pcp:Samuel Braun Subjective: * Chief Complaints: * 1 . med check, Needs a CSA. * Medical History: Objective: * Vitals: Assessment: Plan: * Treatment: * * Electronic signature of Rajwinder English APRN on 01/17/2025 at 12:45 PM EST Sign off status: Pending * Provider: JAMEE Pinedo Date: 0 03/16/2024 Generated for Kathryn marroquin/Eliana/Elvia on: 1 03/19/2024 12:45 PM EST
--- OUTSIDE RECORDS SUMMARY | 2024-06-10 16:30 | XMS_ITS ---
Author Organization [facility] Address [address] [place] [address] Care Team Providers Care Campus Security Officer Name Role Phone Samuel Braun Primary Care Provider Susan English Unavailable [phone] Samuel rBaun Unavailable Unavailable Migration, Provider Unavailable Unavailable Allergies Allergen (clinical drug ingredient) Drug/Non Drug Allergy documented on EMR Reaction Allergy Type Onset Date Status SULFA DRUGS (uncoded) Patient states tears stomach up Allergy Active REASON [facility]ISIT [facility] Conversion Encounter Medications Medication SIG (Take, Route, Frequency, Duration) Notes Start Date End Date Status HYDROcodone-Acetami nophen 5-325 MG 1 tab(s) orally 3 times per day as needed for chronic pain; Duration: 30 days 06/07/2024 Active Fluticasone Propionate 50 MCG/ACT 1 spray(s) in each nostril 2 times a day prn; Duration: 30 days Active Diclofenac Sodium 50 MG 1 tab(s) orally 2 times a day as needed for arthritis pain; Duration: 30 days twice a week 12/08/2022 Active CONJUGATED ESTROGENS TOPICAL 0.625 MG/G DIRECTED INTRAVAGINALLY ON MON/WED/FRI; Duration: 30 DAYS *Please review for potential replacement for e-prescription and drug interaction check* 12/13/2023 Active Protonix 20 MG 1 tab(s) orally once a day; Duration: 90 days Active Gabapentin 300 MG 1 cap(s) orally 3 times a day; Duration: 30 days 05/10/2024 Active Fluconazole 150 MG 1 tab(s) orally once a day for 3 days; Duration: 3 days 05/08/2024 Active Doxycycline Hyclate 100 MG 1 cap(s) orally once a day for prevention of UTI; Duration: 30 days 05/03/2024 Active Estrace 0.1 MG/GM as directed intravaginally 3 times a week Active Aspirin 81 MG 1 tab(s) orally once a day; Duration: 30 day(s) Active Bisoprolol Fumarate 5 MG 1 tabs orally once a day at bedtime; Duration: 90 days Active Cymbalta 60 MG 1 cap(s) orally once a day; Duration: 30 days Active Rosuvastatin Calcium 10 MG 1 tab(s) orally once a day; Duration: 30 days 04/14/2024 Active Losartan Potassium 50 MG 1 tab(s) orally once a day; Duration: 90 days Active Encounters Encounter Location Date Provider Diagnosis [facility] [address] [facility] [address] [place] [address] 06/10/2024 Provider Migration Dysuria R30.0 Assessments Encounter Date Diagnosis (ICD Code) Assessment Notes Treatment Notes Treatment Clinical Notes Section Notes 06/10/2024 Dysuria (ICD-10 - R30.0) Plan Of Treatment Medication Medication Name Sig Start Date Stop Date Notes HYDROcodone-Acetaminophen 5- 325 MG 1 tab(s) orally 3 times per day as needed for chronic pain; Duration: 30 days 06/07/2024 Gabapentin 300 MG 1 cap(s) orally 3 ti mes a day; Duration: 30 days 05/10/2024 Fluconazole 150 MG 1 tab(s) orally once a day for 3 days; Duration: 3 days 05/08/2024 Progress Notes * January PUGA EDOB:1940 (84 yo F)Acc No.[id number]:06/10/2024 Patient: January DOTSON Provider: Tana Riley :1940 A ge:83 Y S ex:Female Date:06/10/2024 Address:[address] [place] [id number] Pcp:Samuel Braun Subjective: * Chief Complaints: * 1 . Multum To Medispan Conversion Encounter. * Medical History: * Medications: T aking Estrace 0.1 MG/GM Cream as directed intravaginally 3 times a week , Taking Aspirin 81 MG Tablet Delayed Release 1 tab(s) orally once a day , Taking Fluticasone Propionate 50 MCG/ACT Suspension 1 spray(s) in each nostril 2 times a day prn , Taking Diclofenac Sodium 50 MG Tablet Delayed Release 1 tab(s) orally 2 times a day as needed for arthritis pain , Notes to Pharmacist: twice a week, Taking CONJUGATED ESTROGENS TOPICAL 0.625 MG/G CREAM WITH APPLICATOR DIRECTED INTRAVAGINALLY ON WED/WED/WED , Notes to Pharmacist: *Please review for potential replacement for e-prescription and drug interaction check*, Taking Protonix 20 MG Tablet Delayed Release 1 tab(s) orally once a day , Taking Bisoprolol Fumarate 5 MG Tablet 1 tabs orally once a day at bedtime , Taking Cymbalta 60 MG Capsule Delayed Release Particles 1 cap(s) orally once a day , Taking Rosuvastatin Calcium 10 MG Tablet 1 tab(s) orally once a day , Taking Losartan Potassium 50 MG Tablet 1 tab(s) orally once a day , Taking Doxycycline Hyclate 100 MG Capsule 1 cap(s) orally once a day for prevention of UTI * Allergies: S ULFA DRUGS: Patient states tears stomach up. Objective: * Vitals: Assessment: * Assessment: 1. D ysuria - R30.0 (Primary) Plan: * Treatment: 2. O thers Refill Gabapentin Capsule, 300 MG, 1 cap(s), orally, 3 times a day, 30 days, 90 Capsule, Refills 3;?Start HYDROcodone-Acetaminophen Tablet, 5-325 MG, 1 tab(s), orally, 3 times per day as needed for chronic pain, 30 days, 90, Refills 0. * * Electronic signature of Prov ider Migration on 01/17/2025 at 12:46 PM EST Sign off status: Pending * Provider: Tana kyle Migration Date: 0 06/10/2024 Generated for Kathryn marroquin/Eliana/Elvia on: 03/19/2024 12:46 PM EST
--- OUTSIDE RECORDS SUMMARY | 2024-10-09 09:30 | XMS_ITS ---
Author Organization [facility] Address [address] [place] [address] Care Team Providers Care Senior Ui Software Engineer Name Role Phone Samuel Braun Primary Care Provider [phone] Susan English Unavailable [phone] Samuel Braun Unavailable Unavailable REASON FOR VISIT med check Encounters Encounter Location Date Provider Diagnosis [facility] [address] [place] [address] 10/09/2024 Susan English Plan Of Treatment No Information Progress Notes * January PUGA EDOB:1940 (84 yo F)Acc No.[id number]:10/09/2024 Progress Notes Patient: Shelly DOTSONan Terra Provider: JAMEE Pinedo :1940 A ge:83 Y S ex:Female Date:10/09/2024 [address], [id number] Pcp:Samuel Braun Subjective: * Chief Complaints: * 1 . Med check. * Medical History: Objective: * Vitals: Assessment: Plan: * Treatment: * * Electronic signature of Rajwinder English APRN on 01/17/2025 at 12:47 PM EST Sign off status: Pending * Provider: JAMEE Pinedo Date: 0 10/09/2024 Generated for Kathryn marroquin/Eliana/Elvia on: 1 03/19/2024 12:47 PM EST
--- OUTSIDE RECORDS SUMMARY | 2025-01-04 10:00 | XMS_ITS ---
Author Organization [facility] PE D DANIKA Address [address] [facility] [address] [place] [address] Care Team Providers Care Seismology Technical Officer Name Role Phone Samuel Braun Primary Care Provider Susan English Unavailable [phone] Samuel Braun Unavailable Unavailable Allergies Allergen (clinical drug ingredient) Drug/Non Drug Allergy documented on EMR Reaction Allergy Type Onset Date Status SULFA DRUGS (uncoded) Patient states tears stomach up Allergy Active Reason For Referral Reason MRI right ankle, no contrast. Call son (on file) with appt information please Diagnosis 1 Pain in right ankle and joints of right foot (M25.571) Referral Organization [facility] CHUCK RAYMUNDO Referring Provider First Name Susan Referring Provider Last Name Tameka Referring Provider Speciality Family [facility] ctice Referred Organization [facility] Referred Address [address] [facility] [address] [place], [place],[address], Referred Provider Specialty Diagnostic R adiology General Notes Bela Rdz 2024 03:23:00 PM >approved through [employer] and sent to [facility] to schedule appt Referral Priority Routine REASON FOR VISIT med ck, still having right ankle pain that radiates up her leg-is wanting an MRI Medications Medication SIG (Take, Route, Frequency, Duration) Notes Start Date End Date Status Lyrica 150 MG 1 capsule Orally twi ce a day; Duration: 30 days 10/16/2024 Active Estradiol 0.1 MG/GM APPLY DIRECTED VAGINALLY ON WEDNESDAY, WEDNESDAY, AND WEDNESDAY; Duration: 90 Active Rosuvastatin Calcium 10 MG 1 tablet Oral ly Once a day; Duration: 90 days Active Bisoprolol Fumarate 5 MG TAKE ONE (1) TA BLET BY MOUTH AT BEDTIME; Duration: 90 Active HYDROcodone-Acetaminophen 5-325 MG 1 tablet as needed Orally 3 times a day; Duration: 30 days As needed 01/03/2025 Active Escitalopram Oxalate 20 MG 1 tablet Oral ly Once a day; Duration: 90 days 08/21/2024 Active Diclofenac Sodium 50 MG 1 tab(s) orally 2 times a day as needed for arthritis pain; Duration: 30 days 12/08/2022 Active Losartan Potassium 50 MG 1 tab(s) orally once a day; Duration: 90 days Active Aspirin 81 MG 1 tab(s) orally once a day; Duration: 30 day(s) Active Fluticasone Propionate 50 MCG/ACT 1 spray(s) in each nostril 2 times a day prn; Duration: 30 days Active Doxycycline Hyclate 100 MG 1 capsule Ora lly Once a day; Duration: 90 days 09/06/2024 Active Immunizations Vaccine Route Administration Date Status Comme nts Fluzone High Dose IM Intramuscular 01/04/2025 Administered Vital Signs Temperature 97.8 degrees Fahrenheit 01/05/20 25 Blood pressure systolic 142 mm Hg 01/05/20 25 Blood pressure diastolic 74 mm Hg 025 Heart Rate 60 /min 01/04/2025 Height 64 in 01/04/2025 Weight 167.8 lbs 01/04/2025 BMI 28.8 kg/m2 01/04/2025 Encounters Encounter Location Date Provider Diagnosis [facility] PED DANIKA [address] [facility] [address] [place] [address] 01/04/2025 Susan English Lumbago with sciatic a, right side M54.41 ; roasterman prescription opiate use Z79.891 ; Anxiety associated with depression F41.8 ; Generalized osteoarthritis of multiple sites M15.9 ; Coronary artery disease involving blue lake coronary artery of blue lake heart without angina pectoris I25.10 ; Immunization(s) administered Z23 ; Pain in right ankle and joints of right foot M25.571 ; Other chronic pain G89.29 and Frequent UTI N39.0 Assessments Encounter Date Diagnosis (ICD Code) Assessment Notes Treatment Notes Treatment Clinical Notes Section Notes 01/04/2025 Lumbago with sciatica, right side (ICD-10 - M54.41) Stable symptoms without medication side effects, no changes recommended 01/04/2025 roasterman prescription opiate use (ICD-10 - Z79.891) 01/04/2025 Anxiety associated with depression (ICD-10 - F41.8) Stable on current regimen, no changes recommended 01/04/2025 Generalized osteoarthritis of multiple sites (ICD-10 - M15.9) 01/04/2025 Coronary artery disease involving blue lake coronary artery of blue lake heart without angina pectoris (ICD-10 - I25.10) continue current regimen, routine cardiology FU 01/04/2025 Immunization(s) administered (ICD-10 - Z23) 01/04/2025 Pain in right ankle and joints of right foot (ICD-10 - M25.571) MRI given onset with trauma 01/04/2025 Other chronic pain (ICD-10 - G89.29) 01/04/2025 Frequent UTI (ICD-10 - N39.0) 01/04/2025 Other Plan Of Treatment Medication Medication Name Sig Start Date Stop Date Notes Doxycycline Hyclate 100 MG 1 capsule Ora lly Once a day; Duration: 90 days 09/06/2024 Referrals Referral Date Details 01/05/2025 01/05/2025, MRI righ t ankle, no contrast. Call son (on file) with appt information please, [address] [facility], [place], [address], Next Appt Details Follow Up: 3 Months, Reason: Progress Notes * January PUGA EDOB:1940 (84 yo F)Acc No.[id number]:01/04/2025 Progress Notes Patient: January DOTSON Provider: JAMEE Pinedo :1940 A ge:84 Y S ex:Female Date:01/04/2025 Address:[address] [place] [address], [facility], [id number] Pcp:Samuel Braun Subjective: * Chief Complaints: * 1 . Med ck. 2. still having right ankle pain that radiates up her leg-is wanting an MRI. * HPI: juan gibbs: Presents for routine 3 mo FU, medication refills. Still taking [place] and Lyrica and tolerating well. Her diaphoresis has completely resolved since stopping cymbalta and her anxiety / chronic pain symptoms are stable on lexapro and Lyrica. Afraid of falling. Cane when out of the house but doesn't use anything routinely around the house. Has ongoing cardiology FU, no changes made last visit. [facility] [place] following at [facility] for procedures as needed. P ain 7-8/10, improves after being up in the morning and using heat. Son lives with her. Recurrent urinary and vaginal symptoms improved with daily doxycycline, not using estrogen cream very often She is questioning workup for pain in her right ankle. Lateral aspect but more recently radiating into the lateral lower leg with activity. This is s/p injury about 15-18 months ago. Imaging at that time neg for acute injury. Chronic changes and hardware from prior procedure. C hronic Pain Follow-up: Narcotic Use y es, Sandy Level. N SAID/Adjunctive Rx g abapentin, NSAIDS contraindicated. P T/OT i n the past. P ain Management y es, injections/nerve blocks. U se of illegal substances n o, denies. D rug Screen in the past year yes. C ontrolled substance agreement on file y es. K ASPER r eviewed. A djunctive treatment h eat. P ain Scale 8 /10, improves to 4/10 at times with medication/nerve blocks. I maging X ray, MRI. I ndication for medication D DD / DJD. * ROS: C ARDIOLOGY: Reviewed, No Symptoms Reported: Y es. C ONSTITUTIONAL: no L oss of appetite. n o F ever. W eakness?yes, a t baseline. G ASTROENTEROLOGY: no V omiting. n o A bdominal pain. n o D iarrhea. C onstipation y es, i mproved with current tx. M USCULOSKELETAL: back pain y es. J oint stiffness y es. J oint pain y es. N EUROLOGY: no H eadache. n o I nsomnia, i mproved since stopping cymbalta. n o M lizbeth loss. n o D izziness. U ROLOGY: no D ifficulty urinating. n o B lood in urine. F requent urination y es. U rinary incontinence y es, s mall amount. R ecurrent UTI y es. * Medical History: O steoarthritis, Asthma, Chronic allergies, Diverticulosis, Dropped bladder, Cholecystectomy, vitamin B12 deficiency, Partial hysterectomy, Hypertension, Osteoporosis, CAD s/p stenting February 2018, Normal mamm 01/25 normal, Normal ECHO and Lexiscan stress 04/2022. * Surgical History: L t knee surgery 10/2015, back surgery 11/2015, Cardiac stents , toe removed and pins attached for straightening of other toes 08/2022, Rt Knee Replacement 03/26/23. * Hospitalization/Major Diagno stic Procedure: b ack surgery 11/2015. * Family History: F ather: . M other: . P aternal Grand Father: . P aternal Grand Mother: . M aternal Grand Father: . M aternal Grand Mother: . Paternal uncle: alive. P aternal aunt: . M aternal uncle: . M aternal aunt: . S iblings: alive, 2 brothers . C hildren: alive, one son-. 2 sister(s) . 2 son(s) , 3 daughter(s) . . * Social History: S moking A re you a:: nonsmoker. R ecreational drug use: no. Exercise: no. Home smoke detector use: yes. Caffeine: yes, frequency:2 cups coffee daily. Living Will: No, discussed, has discussed with family but does not have formal living will. Alcohol: no. Sexually active: no. Travel outside [place]: no. Occupation: retired. * Medications: T aking Aspirin 81 MG Tablet Delayed Release 1 tab(s) orally once a day , Taking Fluticasone Propionate 50 MCG/ACT Suspension 1 spray(s) in each nostril 2 times a day prn , Taking Diclofenac Sodium 50 MG Tablet Delayed Release 1 tab(s) orally 2 times a day as needed for arthritis pain , Taking Losartan Potassium 50 MG Tablet 1 tab(s) orally once a day , Taking Doxycycline Hyclate 100 MG Capsule 1 capsule Orally Once a day , Taking Escitalopram Oxalate 20 MG Tablet 1 tablet Orally Once a day , Taking Rosuvastatin Calcium 10 MG Tablet 1 tablet Orally Once a day , Taking Lyrica 150 MG Capsule 1 capsule Orally twice a day , Taking Estradiol 0.1 MG/GM Cream APPLY DIRECTED VAGINALLY ON WEDNESDAY, WEDNESDAY, AND WEDNESDAY , Taking Bisoprolol Fumarate 5 MG Tablet TAKE ONE (1) TABLET BY MOUTH AT BEDTIME , Taking HYDROcodone- Acetaminophen 5-325 MG Tablet 1 tablet as needed Orally 3 times a day As needed * Allergies: S ULFA DRUGS: Patient states tears stomach up. Objective: * Vitals: N urse: jl, Pain: 0, Temp: 97.8, RR: 18, HR: 60, BP: 142/74, Ht: 64, Wt: 167.8, BMI:28.8. * Examination: G eneral Examination: General P leasant and Cooperative, NAD on RA,. Oral cavity: M oist membranes. Heart: R RR, No m/r/g/h, Nl S1S2. Lungs: L CTAB, No wheezes, crackles or rhonchi, Good air movement,. Neurologic Exam: Alert and oriented x 3. Skin: w ithout acute rashes. Extremities: k yphosis and scoliosis noted, arthritic changes bilat hands and wrists, crepitant knees. tender right ankle lateral aspect but no warmth or erythema. neck supple,, no thyromegaly,, no lymphadenopathy,. Psych N ormal Mood/Affect. Assessment: * Assessment: 1. L umbago with sciatica, right side - M54.41 (Primary) 2 . L rachel term prescription opiate use - Z79.891 3 . A nxiety associated with depression - F41.8? 4. G eneralized osteoarthritis of multiple sites - M15.9 5 . Coronary artery disease involving blue lake coronary artery of blue lake heart without angina pectoris - I25.10 6 . I mmunization(s) administered - Z23 7 . P ain in right ankle and joints of right foot - M25.571 8 . O ther chronic pain - G89.29 9. F requent UTI - N39.0 Plan: * Treatment: 2. A nxiety associated with depression Clinical Notes: Stable on current regimen, no changes recommended 3. C oronary artery disease involving blue lake coronary artery of blue lake heart without angina pectoris Clinical Notes: continue current regimen, routine cardiology FU 4. P ain in right ankle and joints of right foot Clinical Notes: MRI given onset with trauma ? Referral To: Reason:MRI right ankle, no contrast. Call son (on file) with appt information please 5. F requent UTI Refill Doxycycline Hyclate Capsule, 100 MG, 1 capsule, Orally, Once a day, 90 days, 90 Capsule, Refills 3. * Immunizations: Fluzone High Dose : 0.5 mL (Route: Intramuscular) given by ANNABEL Burrell on Left Deltoid (Immunization(s) administered) * Procedure Codes: 9 0662 Influenza High Dose Vaccine >65 Years Old, G0008 ADMINISTRATION-FLU VACCINE MEDICARE ONLY * Follow Up: 3 Months * * Sign off status: Completed true * Provider: JAMEE Pinedo Date: Generated for Kathryn marroquin/Eliana/Jaidaitting on: 03/19/2024 12:45 PM EST History and Physical Notes * HPI (History of Present Illness) Category Sub-Category Detail Notes Category Not es Chronic Pain Follow-up Narcotic Use yes, [place] NSAID/Adjunctive Rx gabapentin, NSAIDS c ontraindicated PT/OT in the past Pain Management yes, injections/nerv e blocks Use of illegal substances no, denies Drug Screen in the past year yes Controlled substance agreement on file y victor hugo QUEZADA reviewed Adjunctive treatment heat Pain Scale 8/10, improves to 4/ 10 at times with medication/nerve blocks Imaging Xray, MRI Indication for medication DDD / DJD Examination Category Sub-Category Detail Notes Category Not es General Examination Heart: RRR, No m/r/g/h, Nl S 1S2 Lungs: LCTAB, No wheezes, c rackles or rhonchi, Good air movement, Extremities: kyphosis and scolios is noted, arthritic changes bilat hands and wrists, crepitant knees. tender right ankle lateral aspect but no warmth or erythema Skin: without acute rashes Neurologic Exam: Alert and oriented x 3 Oral cavity: Moist membranes neck supple,, no thyromeg iam,, no lymphadenopathy, General Pleasant and Coopera tive, NAD on RA, Psych Normal Mood/Affect Consultation Request Notes Referral Date Referring Provider Referred Provider Not victor hugo 01/05/2025 Susan English , MRI right an kle, no contrast. Call son (on file) with appt information please
--- OUTSIDE RECORDS SUMMARY | 2025-01-05 09:52 | XMS_ITS ---
Author Organization [facility] PE D DANIKA Address [address] [facility] [address] [place] [address] Care Team Providers Care Project Coordinator Rn Name Role Phone Samuel Braun Primary Care Provider [phone] TamekaSusan stinson Unavailable [phone] Samuel Braun Unavailable Unavailable REASON FOR VISIT MRI Order Encounters Encounter Location Date Provider Diagnosis [facility] PED DAN[facility] [address] [facility] [address] [place] [address] 01/05/2025 Susan English Pain in right ankle and joints of right foot M25.571 Assessments Encounter Date Diagnosis (ICD Code) Assessment Notes Treatment Notes Treatment Clinical Notes Section Notes 01/05/2025 Pain in right ankle and joints of right foot (ICD-10 - M25.571) Plan Of Treatment Pending Test Test Name Order Date MRI : Ankle, Right 01/05/2025 Progress Notes * January PUGA EDOB:1940 (84 yo F)Acc No.[id number]:01/05/2025 Patient: Doris ZHENMANSI January Ellison :1940 A ge:84 Y S ex:Female Address:[address] [place] [address] Subjective: * Chief Complaints: * M RI Order * Medical History: * Surgical History: * Hospitalization/Major Diagno stic Procedure: * Medications: Objective: * Vitals: * Physical Examination: Assessment: * Assessment: 1. P ain in right ankle and joints of right foot - M25.571 Plan: * Treatment: * * Procedure Codes: * true * Date: Generated for Kathryn Yoder/Elvia on: 03/19/2024 12:45 PM EST
--- NOTE | 2025-01-17 12:46 | MR_ITS ---
FINAL REPORT TECHNIQUE: Multiplanar MRI without gadolinium enhancement CLINICAL HISTORY: PAIN IN RT ANKLE AND JOINTS RT FOOT PAIN IN ANKLEX 6 MONTHS , PT STATED SHE FELL LAST YEAR , LATERAL ANKLE PAIN COMPARISON: None FINDINGS: Articular cartilage: There is moderate osteoarthritic change of the ankle joint. There are severe osteoarthritic changes in the subtalar joint. Moderate degenerative changes are present in the hindfoot. Marrow signal: There are subcortical cystic changes in the lateral malleolus and most significantly in the talus and calcaneus abutting the subtalar joints. Findings are considered related to advanced arthritic change. There is associated reactive bone marrow edema. There are significant subcortical cystic changes also noted of the cuboid/lateral cuneiform joint. Joint fluid: Moderate sized effusion, without evidence of a loose body. There is a curvilinear loose body on the anterior aspect of the lateral ankle joint measuring up to 10 mm, probably an old fracture fragment. Tendons: There is a partial split tear of the peroneus brevis at the level of the lateral malleolus. Remaining tendons are intact. Ligaments: There is marked thinning of the ATFL consistent with a chronic partial tear. The PTFL is intact. The tibiofibular ligaments are intact. The deltoid ligament is normal. There is absence of the talocalcaneal ligaments consistent with tears. There is absence of the calcaneofibular ligament, compatible with a tear. Plantar fascia: No evidence of tear or fasciitis. 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 IMPRESSION: 1. Extensive chronic abnormalities as above. This most significantly involves the subtalar joint, may be the sequela of prior trauma or ongoing neuropathic disease. Reviewed, Interpreted and Dictated by Augusta Timmons MD Transcribed by Susy Matias Authenticated and [facility]
--- OUTSIDE RECORDS SUMMARY | 2025-01-17 12:46 | XMS_ITS | Encounter Summary ---
Author Organization [facility] Address [address] [place] [address] Care Team Providers Care Oracle Database Analyst Name Role Phone True Knight MD Primary Care Provider Unavailable Encounter Details Date Type Department Care Team (Late st Contact Info) Description 05/06/2012 Conversion Encounter [facility] HISTORICAL CONV [address] [place] [address] Interface, See Report Social History Tobacco Use Types Packs/Day Years Used Date Smoking Tobacco: Never Assessed Comments Unknown Sex and Gender Information Value Date Recorded Sex Assigned at Not on file Legal Sex Female 10:01 AM EDT Gender Identity Not on file Sexual Orientation Not on file documented as of this encounter Progress Notes * Interface, See Report - 05/06/2012 12:00 AM EST Patient: GHASSAN PUGA MR #: : 1940 Date of Visit: 05/06/2012 Attending Physician: Nelsy Bey Dictated By: MUNIR ROBIN Referring Physician: KATI FARIAS Diagnosis: ANNUAL Allergies: NKDA History of present illness: ANNUAL; IS ON ANTIBIOTICS FOR SINUS INFECTION. HAVING WHITE D/C, IRRITATION; DRYNESS; NO ODOR. PT HAD MAMMOGRAM IN APR CALLED BACK TO DO ULTRASOUND. WAITING ON RESULTS. 71yo female here for annual exam. Is currently being treated with abx for sinusitis, which is improving, but she now reports white d/c and vaginal irritation. She took one diflucan, but does not feel this resolved the problem completely. She reports some burning after urination to the vulva. She quitusing the premarin cream due to cost, but states she want to go back on it because her symptoms were better when she used i t on a regular basis. Present family and/or social history: Family history: H/O HEART & LIVER DISEASE Social history: Tobacco Y N PPD ETOH Y N # Drinks Marital Status Occupation Past medical history: Medical: DIVERTICULOSIS; OSTEOARTHRITIS; ALLERGIES; HYPERTENSION; ASTHMA; DEPRESSION; ANEMIA; B12 DEF Surgical: PARTIAL HYSTERECTOMY; BLADDER TACK; VAG PROLAPSE REPAIR AND CYSTOCELE (MESH) Health maintenance: Mammogram: Colonoscopy: Pap smear: 04/28/11 Tumor Marker: CT Scan:BMD: Review of systems: Constitutional: No change in weight, no excessive fatigue Psychiatric: +DEPRESSION. No history of anxiety, bipolar disorder, or insomnia Eyes: +GLASSES. Vision unchanged Ears, Nose, Mouth, Throat: +ALLERGIES. Hearing normal, no swallowing difficulties, no sore throat Endocrine: No history of diabetes, thyroid disease, heat/cold intolerance Lymphatic: No enlarged lymph nodes Respiratory: +ASTHMA. No shortness of breath, cough, wheezing Cardiovascular: +HTN. No angina, orthopnea, edema, murmur, hyperlipidemia Gastrointestinal: +DIVERTICULOSIS. No constipation or diarrhea, no reflux, nausea, or vomiting Genitourinary: No dysuria, hematuria, urgency, or frequency Neurologic: +OA. No numbness, weakness, syncope, seizures, or headaches Musculoskeletal: No muscle weakness, or joint pain Integumentary: No new skin lesions Gynecologic: +VAG D/C; +IRRITATION; +DRYNESS. No abnormal bleeding, pelvic pain, of h/o abnml pap smears LMP: P: 5 Vag Deliveries: 5 C-sec: 0 Hematologic: +ANEMIA; +B-12 DEF. No history of easy bruising, or blood clots Medications: See documented medication list. Physical exam: Constitutional: Weight Height BP Pulse Temp Neurological/Psychiatric: HEENT: Neck: Respiratory: Cardiovascular: Breasts: Gastrointestinal: Lymphatic: Extremities: Skin: Gynecologic: External Genitalia: Vagina: , moderate amount of thick white d/c Cervix: Uterus: Ovaries: Parametria: Smooth. Rectovaginal: Hemoccult: Procedure note: Assessment: Annual Well Woman Exam Vaginal Candidiasis Vaginal Atrophy Plan: Diflucan 150 mg PO on days 1 & 3 # 2 no refills Estrace cream 1 gm PV and applied topically 2x per week # 1 tube refills x 3 Mamm recently done with second look ultrasound-will look for results RTC Approved by: Nelsy Bey 11:54 AM , 05/06/2012 cc: documented in this encounter Plan of Treatment Not on file documented as of this encounter Visit Diagnoses Not on filedocumented in this encounter Care Teams Oracle Database Analyst Relationship Specialty Start Date End Date True Knight MD PCP - General 07/17/15 documented as of this encounter
--- OUTSIDE RECORDS SUMMARY | 2025-01-17 12:47 | XMS_ITS | Clinical Summary ---
Author Organization [facility] Address [address] [place] [address] Care Team Providers Care Per Diem Rn Name Role Phone Samuel Braun MD Primary Care Provider [phone] Allergies No known active allergies Medications aspirin 81 MG EC tablet 1 (one) time each day. Active losartan (Cozaar) 50 MG tablet 2 tablets (100 mg) 1 (one) time each day. 2 Active DULoxetine (Cymbalta) [address] capsule 1 capsule (30 mg) 1 (one) time each day. Active pantoprazole (ProtoNix) 20 MG EC tablet 1 (one) time each day before breakfast. Active rosuvastatin (Crestor) 20 MG tablet 1 tablet (20 mg) 1 (one) time each day. Active HYDROcodone-susu taminophen ([place]) 5-325 MG tablet 2 (two) times a day. 3 Active gabapentin (Neurontin) 300 MG capsule 1 capsule (300 mg) 2 (two) times a day. 3 Active bisoprolol (Zebeta) 5 MG tablet 1 tablet (5 mg) 1 (one) time each day. 3 Active Elastic Bandages & Supports (Post-OP Shoe/Soft Top Men) misc Use for ambulation on surgical foot as instructed 1 each 3 Active Active Problems Problem Noted Date Diagnosed Date Status post amputation of toe of right foot 07/0 08/2022 CAD (coronary artery disease) 09/02/2022 Gastroesophageal reflux disease 09/02/2022 Hyperlipidemia 07/01/2022 Hypertensive disorder 07/01/2022 Acquired hallux valgus of right foot 07/01/2022 Hammer toe, acquired 07/01/2022 Lumbosacral radiculopathy 10/28/2015 Resolved Problems Problem Noted Date Diagnosed Date Resolved Date Foot pain, right 07/01/2022 11/26/2024 Family History Medical History Relation Name Comments Conversions - Other Mother Backache Heart disease Mother Anesthesia problems Neg Hx Malig Hyperthermia Neg Hx Relation Name Status Comments Mother Social History Tobacco Use Types Packs/Day Years Used Date Smoking Tobacco: Never Passive Smoke Exposure: Never Smokeless Tobacco: Never Tobacco Cessation:Counseling Given: Not Answered Alcohol Use Standard Drinks/Week Comments Not Currently 0 (1 standard drink = 0.6 oz pur e alcohol) PHQ-2 Answer Date Recorded Patient Health Questionnaire-2 Score 0 10/13/2022 PHQ-2A Answer Date Recorded Patient Health Questionnaire-2 Score 0 10/13/2022 Comments No Sex and Gender Information Value Date Recorded Sex Assigned at Not on file Legal Sex Female 7:27 PM EDT Gender Identity Not on file Sexual Orientation Not on file Last Filed Vital Signs Vital Sign Reading Time Taken Comments Blood Pressure 128/79 10/13/2022 9:38 AM EDT Pulse 68 10/13/2022 9:38 AM EDT Temperature 36.7 C (98 F) 10/13/2022 9:38 AM EDT Respiratory Rate 14 09/02/2022 12:10 PM EDT Oxygen Saturation 98% 10/13/2022 9:38 AM EDT Inhaled Oxygen Concentration - - Weight 72.6 kg (160 lb) 10/13/2022 9:38 AM EDT Height 160 cm (5' 3 ) 10/13/2022 9:38 AM EDT Body Mass Index 28.34 10/13/2022 9:38 AM EDT Plan of Treatment Health Maintenance Due Date Last Done Comments [facility]-Bone Density Scan 1940 [facility]-Medicare Annual Wellness (AWV) 1940 [facility]-Infant/Child/Adol SDOH Screenings 1942 [facility]- SDOH Screenings 1960 [facility]-Adult SDOH Screenings 1960 [facility]-Zoster Vaccines (1 of 2) 1992 [facility]-RSV Vaccine: 60+ Years or (1 - 1-dose 75+ series) 2017 [facility]-Depression Screening 10/14/2023 10/13/2022 [id number] Vaccine (3 - 2024- season) 2024 12/20/2020, 11/08/2020 [facility]-Influenza Vaccine (#1) 11/06/202401/09, 02/13/2021, 12/20/2018, Additional history exists [facility]-DTaP,Tdap,and Td Vaccines (2 - Td or Tdap) 07/21/2026 07/21/2016, 01/15/2006 [facility]-Pneumococcal Vaccine: 50+ Years Completed 05/23/2015, 04/20/2011 [facility]-Obesity Intervention Completed 023, 09/10/2022, 07/29/2022, Additional history exists HPV Vaccines Aged Out No longer eligi ble based on patient's age to complete this topic [facility]-HIB Vaccines Aged Out No longer e ligible based on patient's age to complete this topic [facility]-Hepatitis A Vaccines Aged Out No longer eligible based on patient's age to complete this topic [facility]-IPV Vaccines Aged Out No longer e ligible based on patient's age to complete this topic [facility]-Rotavirus Vaccines Aged Out No lo nger eligible based on patient's age to complete this topic Medical Devices Implanted Type Area Security Strategist Device Identifier Shelf Expiration Date Model / Serial / Lot K-Wire Dual Trocar 045 X 152mm - [id number] Implanted:Qty: 1 on 09/02/2022 by Moiz Barton DPM at [facility] Wire Right: Foot [id number] 07/08/2026 1600-645 / / [id number] K-Wire Dual Trocar 045 X 152mm - [id number] Implanted:Qty: 1 on 09/02/2022 by Moiz Barton DPM at [facility] Wire Right: Foot [id number] 06/16/2026 1600-643 / / [id number] K-Wire Dual Trocar 045 X 152mm - [id number] Implanted:Qty: 1 on 09/02/2022 by Moiz Barton DPM at [facility] Wire Right: Foot [id number] 1 12/22/2025 1600-645 / / [id number] Insurance [employer] MEDICARE Care Teams Per Diem Rn Relationship Specialty Start Date End Date Samuel Braun MD [address] [place] [address] PCP - General Internal Medicine 07/29/22
--- OUTSIDE RECORDS SUMMARY | 2025-01-17 12:47 | XMS_ITS | Clinical Summary ---
Author Organization [facility] Address [address] [place] [id number] Care Team Providers Care Immigration Investigator Name Role Phone True Knight MD Primary Care Provider Unavailable Social History Tobacco Use Types Packs/Day Years Used Date Smoking Tobacco: Never Assessed Abuse Screen Answer Date Recorded Unsafe at Home or Work/School Not on file Feels Threatened by Someone? Not on file 11/2022 Does Anyone Keep You from Co ntacting Others or Doint Things Outside the Home? Not on file 12/14/2022 Physical Sign of Abuse Present Not on file 1 Housing Stability Answer Date Recorded Current Living Arrangements Not on file 11/2022 Potentially Unsafe Housing Conditions Not on ladan e 12/14/2022 Family and Community Support Answer Des e Recorded Help with Day-to-Day Activities Not on file 12/14/2022 Lonely or Isolated Not on file 12/14/2022 Employment Answer Date Recorded Do you want help finding or keeping work or a parvin b? Not on file 12/14/2022 Disabilities Answer Date Recorded Concentrating, Remembering, or Making Decisions Difficulty Not on file 12/14/2022 Doing Errands Independently Difficulty Not on fi le 12/14/2022 Education Answer Date Recorded Help with school or training? Not on file Preferred Language Not on file 12/14/2022 Comments Unknown Sex and Gender Information Value Date Recorded Sex Assigned at Not on file Legal Sex Female 10:01 AM EDT Gender Identity Not on file Sexual Orientation Not on file Plan of Treatment Health Maintenance Due Date Last Done Comments ANNUAL PHYSICAL 1940 DXA SCAN 1942 TDAP/TD VACCINES (1 - Tdap) 1961 Pneumococcal Vaccine 50+ (1 of 1 - PCV) 1992 ZOSTER VACCINE (1 of 2) 1992 RSV Vaccine - Adults (1 - 1-dose 75+ series) 8 INFLUENZA VACCINE 10/06/2024 COVID-19 Vaccine (2023- season) 2024 Care Teams Immigration Investigator Relationship Specialty Start Date End Date True Knight MD PCP - General 07/17/15
--- OUTSIDE RECORDS SUMMARY | 2025-01-17 12:47 | XMS_ITS | Patient Health Record ---
Author Organization [facility] Address [address] [place] [address] Care Team Providers Care Bin Piler Name Role Phone Samuel Braun Primary Care Provider Susan English Unavailable [phone] Samuel Braun Unavailable Unavailable Migration, Provider Unavailable Unavailable Allergies Allergen (clinical drug ingredient) Drug/Non Drug Allergy documented on EMR Reaction Allergy Type Onset Date Status SULFA DRUGS (uncoded) Patient states tears stomach up Allergy Active Results Component Value Reference Range Notes CULTURE, URINE, ROUTINE (395 ) Reviewed date:05/11/2024 11:07:48 AM Interpretation: Performing Lab:[facility], [id number] [id number] [place] Notes/Report: NON-FASTING CULTURE, URINE, ROUTINE SEE NOTE CULTURE, URINE, ROUTINE Micro Number: [id number] Test Status: Final Specimen Source: Urine Specimen Quality: Adequate Result: Mixed genital pam isolated. These superficial bacteria are not indicative of a urinary tract infection. No further organism identification is warranted on this specimen. If clinically indicated, recollect clean-catch, mid-stream urine and transfer immediately to Urine Culture Transport Tube. Urinalysis Reviewed date:05/08/2024 05:43:37 PM Interpretation: Performing Lab: Notes/Report: Color/Clarity yellow Leuk neg Nitrite neg Urobili 0.2 Protein neg pH 6.5 Blood neg Sp. Gr. >=1.030 Ketone neg Bili neg Glucose neg M-Comprehensive Metabolic Pa mireille Reviewed date:04/14/2024 10:26:55 AM Interpretation: Performing Lab: Notes/Report: NA 135 136-145 mmol/L K 4.6 3.5-5.1 mmoL/L CL 99 98-107 mmol/L CO2 27 22.0-30.0 mmol/L GAP 13.6 5-15 mEq/L BUN 19 7-17 mg/dl CREATT 0.60 0.52-1.04 mg/dl GFRAA 116 >60 ML/MIN EGFR 96 >60 ml/min GLU 92 74-100 mg/dl CA 9.6 8.4-10.2 mg/dl BILIT 0.3 0.2-1.3 mg/dl AST 36 14-36 U/L ALT 18 12-78 U/L TP 6.4 6.3-8.2 g/dl ALB 4.2 3.5-5.0 g/dl GLOB 2.2 1.3-3.2 g/dL AGRATIO 1.9 1.1-1.8 ALP 61 38-126 U/L M-Lipid Panel Reviewed date:04/14/2024 10:26:55 AM Interpretation: Performing Lab: Notes/Report: Patient Fasting? N TRIG 228 30-150 mg/dl CHOL 82 140-200 mg/dl DLDL 32.79 100-129 mg/dL VLDL 46 0-40 mg/dL HDL 16 40-60 mg/dl CHLHDL 5.1 1-3.5 M-Thyroid Stimulating Hormon e Reviewed date:04/14/2024 10:26:55 AM Interpretation: Performing Lab: Notes/Report: TSH 1.39 0.465-4.68 uIU/mL M-Drug Screen,Urine Reviewed date:04/11/2024 02:21:59 PM Interpretation: Performing Lab: Notes/Report: UOPIS Positive <300 ng/ml This is an UNCONFIRMED result. This result is for medical purposes and/or treatment only. UBARBS Negative <200 ng/ml UPCPS Negative <25 ng/ml UAMPS Negative <1000 ng/ml UMETHS Negative <300 ng/ml UBENZS Negative <200 ng/ml UCOCS Negative <300 ng/ml UTHCS Negative <50 ng/ml H-VITB12 Reviewed date:04/14/2024 10:26:55 AM Interpretation: Performing Lab: Notes/Report: VITB12 669 239-931 pg/mL M-Complete Blood Count Auto Diff Reviewed date:04/14/2024 10:26:55 AM Interpretation: Performing Lab: Notes/Report: WBC 5.3 4.8-10.8 K/mm3 RBC 4.15 4.20-5.40 M/mm3 HGB 12.7 12.2-16.2 g/dL HCT 39.6 37.0-47.0 % MCV 95.4 81-99 fl MCH 30.6 27.0-31.2 pg MCHC 32.1 31.8-35.4 g/dL RDW 12.8 11.5-17.5 % PLT 268 142-424 K/mm3 MPV 9.2 7.4-10.4 fl NE% 57.3 37.0-80.0 % LY% 28.0 10-50 % MO% 10.3 1.7-9.3 % EO% 3.4 0.1-12.0 % BA% 0.8 0.1-2.0 % NE# 3.0 1.8-7.8 K/mm3 LY# 1.5 0.7-4.5 K/mm3 MO# 0.5 0.1-1.0 K/mm3 EO# 0.2 0.0-0.4 K/mm3 BA# 0.0 0-0.2 K/mm3 Mammogram : Bilateral Reviewed date:04/17/2024 03:19:40 PM Interpretation: Performing Lab: Notes/Report: Medications Medication SIG (Take, Route, Frequency, Duration) Notes Start Date End Date Status Lyrica 150 MG 1 capsule Orally twi ce a day; Duration: 30 days 10/16/2024 Active Estradiol 0.1 MG/GM APPLY DIRECTED VAGINALLY ON WEDNESDAY, WEDNESDAY, AND WEDNESDAY; Duration: 90 Active Rosuvastatin Calcium 10 MG 1 tablet Oral ly Once a day; Duration: 90 days Active Diclofenac Sodium 50 MG 1 tab(s) orally 2 times a day as needed for arthritis pain; Duration: 30 days 12/08/2022 Active Losartan Potassium 50 MG 1 tab(s) orally once a day; Duration: 90 days Active Doxycycline Hyclate 100 MG 1 capsule Ora lly Once a day; Duration: 90 days 09/06/2024 Active Aspirin 81 MG 1 tab(s) orally once a day; Duration: 30 day(s) Active Fluticasone Propionate 50 MCG/ACT 1 spray(s) in each nostril 2 times a day prn; Duration: 30 days Active Escitalopram Oxalate 20 MG TAKE ONE (1) TABLET BY MOUTH ONCE DAILY; Duration: 90 Active Bisoprolol Fumarate 5 MG TAKE ONE (1) TA BLET BY MOUTH AT BEDTIME; Duration: 90 Active HYDROcodone-Acetaminophen 5-325 MG 1 tablet as needed Orally 3 times a day; Duration: 30 days As needed 01/03/2025 Active Immunizations Vaccine Route Administration Date Status Comme nts Adacel (Tdap) Unknown 07/21/2016 Administered Fluvirin--Influenz a vaccine 3+ year Unknown 01/16/2009 Administered Fluvirin--Influenz a vaccine 3+ year IM Intramuscular 03/04/2010 Administered Fluzone High Dose IM Intramuscular 11/23/2017 Administered Fluzone High Dose IM Intramuscular 01/04/2025 Administered Influenza (Fluzone)--Medicar e only IM Intramuscular 03/03/2011 Administered 1/2 dose Influenza (Fluzone)--Medicar e only IM Intramuscular 01/15/2012 Administered got 0.25cc on 01/15/12 and took 0.25cc home with her which will be administered by her daughter Influenza (Fluzone)--Medicar e only IM Intramuscular 01/05/2015 Administered Influenza (Fluzone)--Medicar e only IM Intramuscular 01/07/2016 Administered Pneumococcal Vaccine IM Intramuscular 04/20/2011 Administered Prevnar PCV-13 (Pneumococcal conjugate 13) IM Intramuscular 05/23/2015 Administered Prevnar PCV-20 (Pneumococcal conjugate 20) IM Intramuscular 03/27/2024 Administered Td Adult Unknown 01/15/2006 Administered Problems Problem Type SNOMED Code ICD Code Onset Dates Problem Status W/U Status Risk Notes Problem Overweight (020444973) Overweight (E66.3) Active confirmed Problem Chronic obstructive pulmonary disease (57651974) Chronic obstructive pulmonary disease, unspecified (J44.9) Active confirmed Problem Uncomplicated asthma (disorder) (012589781) Unspecified asthma, uncomplicated (J45.909) Active confirmed Problem Gastro-esophageal reflux disease without esophagitis (327625663) Gastro-esophageal reflux disease without esophagitis (K21.9) Active confirmed Problem Sciatica (91256357) Lumbago with sciatica, right side (M54.41) Active confirmed Problem Trochanteric bursitis of left hip (036843144900694) Trochanteric bursitis of left hip (M70.62) Active confirmed Problem Depression (697109526) Depression (F32.9) Active confirmed Problem Recurrent urinary tract infection (276267086) Recurrent UTI (N39.0) Active confirmed Problem Essential hypertension (66768684) Essential hypertension (I10) Active confirmed Problem Vitamin B12 deficiency (non anemic) (09098530) B12 deficiency (E53.8) Active confirmed Problem Arthralgia of the pelvic region and thigh (250131682) Right hip pain (M25.551) Active confirmed Problem Restless legs (94933687) RLS (restless legs syndrome) (G25.81) Active confirmed Problem Chronic pain (35882034) Other chronic pain (G89.29) Active confirmed Problem Thyroid nodule (723794493) Thyroid nodule (E04.1) Active confirmed Problem Diverticulosis of colon (025054814) Diverticulosis of colon (K57.30) Active confirmed Problem Constipation (13155673) Constipation, unspecified constipation type (K59.00) Active confirmed Problem Atherosclerotic heart disease of [place] coronary artery without angina pectoris (311498420781778) Coronary artery disease involving [place] coronary artery of [place] heart without angina pectoris (I25.10) Active confirmed Problem Mixed anxiety and depressive disorder (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 associated with depression (F41.8) Active confirmed Problem Abnormal mammogram (100884814) Abnormal mammogram (R92.8) Active confirmed Problem Gastroesophageal reflux disease with esophagitis (685714759) Gastroesophageal reflux disease with esophagitis (K21.0) Active confirmed Problem Insomnia disorder related to another mental disorder (42212839) Psychophysiological insomnia (F51.04) Active confirmed Problem Body mass index 20-24 - normal (037027954) Body mass index (BMI) of 24.0-24.9 in adult (Z68.24) Active confirmed Problem Anemia (473090906) Anemia, unspe cified type (D64.9) Active confirmed Problem Degeneration of lumbar intervertebral disc (91454134) Lumbar degenerative disc disease (M51.36) Active confirmed Problem Transient ischemic attack (156507821) TIA (transient ischemic attack) (G45.9) Active confirmed Problem Atrophic vaginitis (81751703) Atrophic vaginitis (N95.2) Active confirmed Problem Eustachian tube disorder (13382363) Other disorders of Eustachian tube (H69.80) Active confirmed Problem Localized, primary osteoarthritis of the pelvic region and thigh (513985249) Primary osteoarthritis of left hip (M16.12) Active confirmed Problem High risk drug monitoring status (417677019) intermission coordinator current use of opiate analgesic (Z79.891) Active confirmed Problem Generalized osteoarthritis (111522197) 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) Active confirmed Problem Postmenopausal state (15058954) Post-menopausal (Z78.0) Active confirmed Problem Solitary sacroiliitis (463867401) SI (sacroiliac) joint inflammation (M46.1) Active confirmed Problem Chronic hyponatremia (28747229) Chronic hyponatremia (E87.1) Active confirmed Problem Seasonal allergic rhinitis (807644846) Acute seasonal allergic rhinitis (J30.2) Active confirmed Problem Mixed incontinence (864707821) Urinary incontinence, mixed (N39.46) Active confirmed Problem Allergic rhinitis (53522209) Acute allergic rhinitis (J30.9) Active confirmed Problem Postmenopausal state (23940879) Asymptomatic age-related postmenopausal state (Z78.0) Active confirmed Problem Poor balance (920679421) Poor balance (R26.89) Active confirmed Problem Vitamin B12 deficiency (non anemic) (32672989) Hx of non anemic vitamin B12 deficiency (Z86.39) Active confirmed Problem Screening mammography (08292897) Screening mammogram for breast cancer (Z12.31) Active confirmed Vital Signs Heart Rate 60 /min 01/04/2025 Temperature 97.8 degrees Fahrenheit 01/04/2025 Blood pressure diastolic 74 mm Hg 01/04/2025 Height 64 in 01/04/2025 Blood pressure systolic 142 mm Hg 01/04/2025 Weight 167.8 lbs 01/04/2025 BMI 28.8 kg/m2 01/04/2025 Encounters Encounter Location Date Provider Diagnosis [facility] [place] [address] [place] [address] 06/10/2024 Provider Migration Dysuria R30.0 [facility] [address] [facility] [address] [place] [address] 03/27/2024 Susan English Essential hypertensi on I10 ; Medicare annual wellness visit, subsequent Z00.00 ; Psychophysiological insomnia F51.04 ; intermission coordinator prescription opiate use Z79.891 ; B12 deficiency E53.8 ; Coronary artery disease involving [place] coronary artery of [place] heart without angina pectoris I25.10 ; Thyroid nodule E04.1 ; Encounter for immunization Z23 ; Overweight E66.3 ; Body mass index [BMI] 28.0-28.9, adult Z68.28 and Frequent UTI N39.0 [facility] [address] [place], [place] [address] 05/08/2024 Susan English Dysuria R30.0 and Ac selene vaginitis N76.0 [facility] [address] [place] [address] 07/11/2024 Susan English senior care prescripti on opiate use Z79.891 ; Lumbago with sciatica, right side M54.41 ; Anxiety associated with depression F41.8 and Generalized osteoarthritis of multiple sites M15.9 [facility] [address] [place] [address] 08/21/2024 Susan English Lumbago with sciatic a, right side M54.41 ; senior care prescription opiate use Z79.891 ; Anxiety associated with depression F41.8 ; Generalized osteoarthritis of multiple sites M15.9 and Poor balance R26.89 [facility] [address] [place] [address] 10/16/2024 Susan English Lumbago with sciatic a, right side M54.41 ; intermission coordinator prescription opiate use Z79.891 ; Anxiety associated with depression F41.8 ; Generalized osteoarthritis of multiple sites M15.9 and Coronary artery disease involving [place] coronary artery of [place] heart without angina pectoris I25.10 [facility] [address] [place] [address] 01/04/2025 [place] Lumbago with sciatic a, right side M54.41 ; senior care prescription opiate use Z79.891 ; Anxiety associated with depression F41.8 ; Generalized osteoarthritis of multiple sites M15.9 ; Coronary artery disease involving [place] coronary artery of [place] heart without angina pectoris I25.10 ; Immunization(s) administered Z23 ; Pain in right ankle and joints of right foot M25.571 ; Other chronic pain G89.29 and Frequent UTI N39.0 [facility] [place] [address] [place] [address] 02/16/2024 Susan Tameka [facility] [address] [place] [address] 02/18/2024 Susan T[place] Breast cancer screen ing by mammogram Z12.31 [facility] [address] [place] [address] 04/14/2024 Susan Tameka [facility] [address] [place] [address] 04/25/2024 Susan Tameka [facility] [place] [address] [address] 05/10/2024 Samuel Besson [facility] [address] [place] [address] 06/26/2024 Samuel Besson [facility] [address] [place] [address] 07/12/2024 Samuel Besson [facility] [address] [address] 07/17/2024 Samuel Besson [facility] [address] [place] [address] 07/27/2024 Samuel Besson Essential hypertensi on I10 [facility] [address] [place] [address] 08/16/2024 Susan Tameka [facility] [address] [place] [address] 09/05/2024 Susan Tameka [facility] [address] [place] [address] 12/06/2024 Samuel Besson Generalized osteoart hritis of multiple sites M15.9 [facility] [place] [address] [facility] [address] [place] [address] 01/03/2025 Samuel Braun Generalized osteoart hritis of multiple sites M15.9 [facility] [address] [place] [address] 01/05/2025 Susan English Pain in right ankle and joints of right foot M25.571 Assessments Encounter Date Diagnosis (ICD Code) Assessment Notes Treatment Notes Treatment Clinical Notes Section Notes 02/18/2024 Breast cancer screening by mammogram (ICD-10 - Z12.31) 03/27/2024 Essential hypertensi on (ICD-10 - I10) stable on current regimen 03/27/2024 Medicare annual wellness visit, subsequent (ICD-10 - Z00.00) desires PCV 20 today, will consider Shingrix and RSV next visit. We reviewed her AWV checklist aloud since she didn't have her glasses with her today. No new concerns. Remains high fall risk due to age, using cane. 05/08/2024 Acute vaginitis (ICD-10 - N76.0) symptoms more c/w vaginitis, rec fluconazole as noted and FU on urine culture when available. she will resume her nightly doxycycline. 05/08/2024 Dysuria (ICD-10 - R30.0) 06/10/2024 Dysuria (ICD-10 - R30.0) 07/11/2024 Lumbago with sciatic a, right side (ICD-10 - M54.41) 07/11/2024 intermission coordinator prescripti on opiate use (ICD-10 - Z79.891) jovanni report reviewed and is appropriate - discussed ongoing use of controlled medication and safety associated with these medications. She will also continue FU with Pain Mangement. 07/27/2024 Essential hypertensi on (ICD-10 - I10) 08/21/2024 Lumbago with sciatic a, right side (ICD-10 - M54.41) 08/21/2024 senior care prescripti on opiate use (ICD-10 - Z79.891) Recommend increase in both her escitalopram and pregabalin for better symptom control. Hopefully she can stay off of the duloxetine since her sleep and hot flashes are significantly improved. Will refer her to PT for gait training. Follow-up in 6 weeks but sooner with any concerns. 10/16/2024 Lumbago with sciatic a, right side (ICD-10 - M54.41) Marginal increase in her Lyrica dose as noted but discussed that this is typically the highest that we go at her age. We will follow-up again in 3 months, sooner with any concerns. Possible side effects of higher dose reviewed 10/16/2024 intermission coordinator prescripti on opiate use (ICD-10 - Z79.891) 12/06/2024 Generalized osteoarthritis of multiple sites (ICD-10 - M15.9) 01/03/2025 Generalized osteoarthritis of multiple sites (ICD-10 - M15.9) 01/04/2025 Lumbago with sciatic a, right side (ICD-10 - M54.41) Stable symptoms without medication side effects, no changes recommended 01/04/2025 intermission coordinator prescripti on opiate use (ICD-10 - Z79.891) 01/05/2025 Pain in right ankle and joints of right foot (ICD-10 - M25.571) 01/04/2025 Anxiety associated with depression (ICD-10 - F41.8) Stable on current regimen, no changes recommended 03/27/2024 Psychophysiological insomnia (ICD-10 - F51.04) no significant improvement with trazodone, monitor. 10/16/2024 Anxiety associated with depression (ICD-10 - F41.8) Stable on current regimen, no changes recommended 08/21/2024 Anxiety associated with depression (ICD-10 - F41.8) 07/11/2024 Anxiety associated with depression (ICD-10 - F41.8) 03/27/2024 senior care prescripti on opiate use (ICD-10 - Z79.891) jovanni report reviewed and is appropriate - discussed ongoing use of controlled medication and safety associated with these medications. She will also continue FU with Pain Mangement. 07/11/2024 Generalized osteoarthritis of multiple sites (ICD-10 - M15.9) 08/21/2024 Generalized osteoarthritis of multiple sites (ICD-10 - M15.9) 10/16/2024 Generalized osteoarthritis of multiple sites (ICD-10 - M15.9) 01/04/2025 Generalized osteoarthritis of multiple sites (ICD-10 - M15.9) 01/04/2025 Coronary artery disease involving [place] coronary artery of [place] heart without angina pectoris (ICD-10 - I25.10) continue current regimen, routine cardiology FU 10/16/2024 Coronary artery disease involving [place] coronary artery of [place] heart without angina pectoris (ICD-10 - I25.10) 08/21/2024 Poor balance (ICD-10 - R26.89) 03/27/2024 B12 deficiency (ICD- 10 - E53.8) 03/27/2024 Coronary artery disease involving [place] coronary artery of [place] heart without angina pectoris (ICD-10 - I25.10) continue statin therapy 01/04/2025 Immunization(s) administered (ICD-10 - Z23) 01/04/2025 Pain in right ankle and joints of right foot (ICD-10 - M25.571) MRI given onset with trauma 03/27/2024 Thyroid nodule (ICD- 10 - E04.1) asymptomatic 03/27/2024 Encounter for immunization (ICD-10 - Z23) 01/04/2025 Other chronic pain (ICD-10 - G89.29) 01/04/2025 Frequent UTI (ICD-10 - N39.0) 03/27/2024 Overweight (ICD-10 - E66.3) stable. heart healthy diet and exercise as tolerated encouraged 03/27/2024 Body mass index [BMI ] 28.0-28.9, adult (ICD-10 - Z68.28) 03/27/2024 Frequent UTI (ICD-10 - N39.0) continue topical estrogen therapy 01/04/2025 Other Plan Of Treatment Pending Test Test Name Order Date X-Lipid Profile 12/28/2007 Urinalysis 01/27/2006 Urinalysis 06/16/2006 MRI : Knee, Right 10/25/2017 MRI : Ankle, Right 01/05/2025 X ray : Hip, Right 01/05/2015 X ray : Foot, Left 03/06/2013 X ray : Foot, Right 03/06/2013 X ray : Wrist, Right 10/31/2010 X ray : Forearm, Right 10/31/2010 Bone Density 02/05/2010 Mammogram : Diagnostic 04/07/2011 Mammogram : Diagnostic 01/10/2009 Mammogram : Right Breast 02/25/2010 N-TSH (Thyroid Stimulating Hormone) 12/07 IVP 05/09/2009 DEXA Hip and Spine - Screening 0 EKG : In House 06/30/2007 EKG : In House 03/25/2009 EKG : In House 01/17/2018 Physical Therapy 01/21/2016 Physical Therapy 11/24/2012 Physical Therapy 07/15/2011 Cardiolite, Adenosine 03/25/2009 Pulmonary Function Tests with pre and po st Neb tx 01/19/2008 N-cmp 12/28/2007 Mammogram : Bilateral 01/10/2009 Mammogram : Bilateral 02/26/2010 Mammogram : Bilateral 02/05/2010 N-CBC with diff 12/28/2007 H-CBC with AUTO DIFF 03/25/2009 H-CBC with AUTO DIFF 12/10/2015 H-CBC with AUTO DIFF 07/08/2016 H-CBC with AUTO DIFF 03/06/2013 H-CBC with AUTO DIFF 09/23/2009 H-CBC with AUTO DIFF 02/23/2011 H-CBC with AUTO DIFF 01/05/2015 H-IRON & TIBC 09/23/2009 H-VITAMIN B12 07/08/2016 H-VITAMIN B12 12/10/2015 H-VITAMIN B12 03/06/2013 H-VITAMIN B12 01/05/2015 H-VITAMIN B12 09/23/2009 H-FOLATE, SERUM 09/23/2009 H-FERRITIN 09/23/2009 H-CMP 03/06/2013 H-CMP 01/05/2015 H-CMP 02/23/2011 H-CMP 12/10/2015 H-CMP 07/08/2016 H-CMP 03/25/2009 H-LIPID PANEL 03/25/2009 H-LIPID PANEL 07/08/2016 H-LIPID PANEL 02/23/2011 H-LIPID PANEL 01/05/2015 H-LIPID PANEL 03/06/2013 H-TSH 03/25/2009 H-VIT D, 25-HYDROXY 11/23/2016 H-VIT D, 25-HYDROXY 03/06/2013 H-HELICOBACTER PYLORI IGG ABS 03/25/2009 H-HELICOBACTER PYLORI IGM AB 03/25/2009 H-URINALYSIS 03/25/2009 C-WET PREP, VAGINAL 05/14/2009 C-URINE CULTURE 03/24/2010 C-URINE CULTURE 01/26/2020 C-URINE CULTURE 08/07/2010 Billing Information Required 05/09/2009 Urine Culture, Routine 12/18/2016 Urine Culture, Routine 03/18/2017 Rapid Flu, A 11/20/2008 Rapid Flu, B 11/20/2008 KENALOG 40MG 06/30/2010 M-Complete Blood Count Auto Diff 021 M-Complete Blood Count Auto Diff 021 M-Complete Blood Count Auto Diff 023 M-Complete Blood Count Auto Diff 025 M-Comprehensive Metabolic Panel 03/27/19 25 M-Comprehensive Metabolic Panel 12/09/19 23 M-Comprehensive Metabolic Panel 06/04/19 21 M-Comprehensive Metabolic Panel 01/03/20 21 M-BUN & Creatinine 02/13/2021 M-Ferritin 08/14/2019 M-Lipid Panel 01/02/2021 M-Lipid Panel 12/08/2022 M-Lipid Panel 03/27/2024 M-Lipid Panel 06/03/2020 M-Thyroid Stimulating Hormone 03/27/2024 M-Drug Screen,Urine 03/27/2024 M-Drug Screen,Urine 12/08/2022 M-Vitamin B12 12/08/2022 M-Vitamin B12 06/03/2020 M-Vitamin B12 03/27/2024 M-Vitamin D 25 Hydroxy 12/08/2022 M-Vitamin D 25 Hydroxy 03/07/2020 M-Folate 08/14/2019 M-Iron and TIBC 08/14/2019 M-COVID PCR SINGLE RAPID 02/10/2020 Physical Therapy : Gait training and cor e strengthening 08/21/2024 Insurance Providers Payer Name Payer Address Payer Phone Subscriber Number Group Number Insured Name Patient Relationship to Insured Coverage Start Date Coverage End Date [employer] [address] [address] [place], [place] [address] [id number] January Pizano Self - patient is the insured Medications Administered Medication Instructions Date of Administration Dosage Notes Cyanocobalamin/B-12 Pt's Own Medication 08/12/2012 1cc cc Cyanocobalamin/B-12 Pt's Own Medication 09/19/2012 Cyanocobalamin/B-12 Pt's Own Medication 03/06/2013 Cyanocobalamin/B-12 Pt's Own Medication 04/18/2014 1 mL Cyanocobalamin/B-12 Pt's Own Medication 05/22/2014 1 mL Cyanocobalamin/B-12 Pt's Own Medication 01/05/2015 1 mL Cyanocobalamin/B-12 Pt's Own Medication 03/06/2015 1 mL Cyanocobalamin/B-12 Pt's Own Medication 05/23/2015 1 mL Cyanocobalamin/B-12 Pt's Own Medication 08/26/2015 1 mL Dexamethasone 4mg Injection 05/02/2021 4 mg Dexamethasone 4mg Injection 11/20/2021 4 mg Dexamethasone 4mg Injection 05/27/2023 4 mg Triamcinolone Acetonide 40mg Injection 12/10/2017 1 mL Triamcinolone Acetonide 40mg Injection 05/04/2018 1 mL Triamcinolone Acetonide 40mg Injection 03/13/2019 1 mL Triamcinolone Acetonide 40mg Injection 10/25/2019 1 mL Triamcinolone Acetonide 40mg Injection 06/03/2020 1 mL Kenalog 08/26/2012 Kenalog 03/14/2014 1 mL Kenalog 01/07/2016 1 mL Medical (General) History Medical History History ICD Code osteoarthritis asthma chronic allergies diverticulosis dropped bladder cholecystectomy vitamin B12 deficiency partial hysterectomy hypertension osteoporosis CAD s/p stenting February 2018 normal mamm 01/25 normal Normal ECHO and Lexiscan stress 04/2022 Surgical History Surgery Date(Month/Year) Lt knee surgery 10/2015 back surgery 11/2015 Cardiac stents toe removed and pins attached for straig htening of other toes 08/2022 Rt Knee Replacement 03/26/23 Hospitalization History Reason Date(Month/Year) back surgery 11/2015
== END 2025-01-17 23:59 | disposition home or self-care (01) ==
LOC: RAD 12:43
PROVIDERS: PCP Nurse Practitioner Family; Visit Provider Nurse Practitioner Family
DX: M19.071 Primary osteoarthritis, right ankle and foot (principal); M24.071 Loose body in right ankle; S96.811A Strain of other specified muscles and tendons at ankle and foot level, right foot, initial encounter; M21.41 Flat foot [pes planus] (acquired), right foot; R93.6 Abnormal findings on diagnostic imaging of limbs
CPT/HCPCS: 73721